=== PATIENT | male | born 1940 | race Caucasian/White ===

== ENCOUNTER 2021-05-05 16:23 | Inpatient (IN) ==
[2021-05-05] MEDS ORDERED: dexAMETHasone**PF** 10 MG/ML VIAL IV ONE (16:59)
[2021-05-05] MEDS ORDERED: ALBUT/IPRATROP 3MG/0.5MG NEB 3 ML VIAL NEB STA (16:59)
[2021-05-05] MEDS ORDERED: ONDANSETRON INJ 2 MG/ML 2 ML VIAL IV STA (16:59)
--- NOTE | 2021-05-05 17:08 | Emergency Department Note ---
Impression & Plan Hypoxia, SOB (shortness of breath), Pneumonia, COVID-19 ED Provider Note NAME: FERNANDO GARRISON AGE: 80 SEX: M : 1940 ARRIVES VIA: Ambulance INFORMANT: [Patient][nursing] ED PROVIDER(S): [Ashish Thakur MD] CHIEF COMPLAINT: Shortness of breath HISTORY OF PRESENT ILLNESS: The patient is an 80-year-old male who presents to the ER with increasing shortness of breath and worsening fatigue. The patient states that he had some abdominal pain several weeks ago that seemed to resolve. About a week ago, he began having cold and flu symptoms. He has had body aches, cough, some stuffy nose, he has lost his taste and smell. He has become short of breath. He has had some sweats and chills. The patient was diagnosed with COVID-19 3 days ago. He is not vaccinated against COVID-19. He is now staying in this area with his daughter. Patient states that today, he seemed worse and they were concerned about his breathing. He was sent for evaluation. As per EMS, the O2 saturation on room air was 88% and the patient did visibly seem short of breath. The patient was diaphoretic. Of note, looking at the patient's medication list, he is on cefdinir and doxyc ycline orally. He states that he was given this for possible pneumonia. REVIEW OF SYSTEMS: See HPI for pertinent positives and negatives. A total of ten systems were re viewed and were otherwise negative. PMHx/PSHx: See Below SOCIAL HISTORY: See Below. PHYSICAL EXAM: GENERAL: Patient is in mild respiratory distress. He seems to have hiccups. HEENT: No acute trauma, normocephalic atraumatic, mucous membranes moist, no nasal congestion, no scleral icterus. NECK: No stridor, no adenopathy, no meningismus, trachea is midline. LUNGS: Crackles bilaterally, there is some mild respiratory distress. Breath sounds are equal. No wheezing. HEART: Without murmurs gallops or rubs, regular rate and rhythm. ABDOMEN: Soft, nontender, bowel sounds positive, no hernias, no peritonitis. EXTREMITIES: No cyanosis or edema, full range of motion of all the joints without pain or difficulty, no signs for acute trauma. NEUROLOGIC: Oriented x 3, no acute motor or sensory deficits, no focal weakness. SKIN: No rash, no jaundice, mild diaphoresis. DIFFERENTIAL DIAGNOSIS: Reactive airway disease, pneumonia, pneumothorax, COVID-19, COPD, CHF, infection, cardiac ischemia, pulmonary embolism, bronchitis, musculoskeletal, gastrointestinal, as well as other pathologies. EMERGENCY DEPARTMENT COURSE/PROCEDURES: ECG: Indication was shortness of breath. The ECG shows what appears to be a sinus rhythm with significant artifact. The rate is 65. There is no ST elevation, no PVCs. The QTc is 426. Continuous Cardiac Monitoring: An order was placed for continuous cardiac monitoring. The monitor shows a rate of 63 with normal sinus rhythm. Critical Care Note: I have personally spent 53 minutes of critical care time in the direct management of this patient. This includes bedside care, interpretation of diagnostic studies, and testing, discussion with consultants, patient, and family members, and other required patient management activities. This 53 minutes is in excess of all separately billable procedures. MEDICAL DECISION MAKING: There is no leukocytosis or worrisome anemia. There is a normal platelet count. Potassium slightly low but not in need of emergent correction. Creatinine mildly elevated at 1.41, this could be consistent with some slight dehydration. Lactic acid level was not elevated making sepsis less likely. No worrisome liver enzyme elevation. BNP was not elevated making fluid overload/CHF unlikely. Covid test run tonight at our hospital is currently pending--his Covid test from the outside facility by report was positive. Chest x-ray does show evidence for bilateral Covid/viral pneumonia. No pneumothorax. Chest CT shows a viral/Covid pneumonia, there was no PE. On exam, the patient appeared short of breath. He had crackles on his lung exam. He was diaphoretic. He was hypoxic without oxygen supplementation. The patient was maintained on O2 via nasal cannula. He received a DuoNeb, IV Decadron, IV Zofran and a small amount of IV saline. The patient does feel improved, he looks much more comfortable. I do think a hospital stay is warranted given his Covid findings and his hypoxia findings. He is not doing well as an outpatient. I spoke with the patient, I spoke with gearcase assembler. The on-call hospitalist was consulted. Past Med/Surg History Medical History Diabetes mellitus Hypertension Social History Smoking Status: Unknown if ever smoked Feels Safe at Home: Yes Allergies Allergies Allergy/AdvReac Type Severity Reaction Status Date / Time No Known Allergies Allergy Verified 05/05/21 17:36 Home Meds Home Medications Medication Instructions Recorded Confirmed Lactobacillus acidoph-L.bulgaricus 1 tab PO DAILY 05/05/21 05/05/21 1 million cell tablet acetaminophen 325 mg tablet 650 mg PO DIRECTED PRN 05/05/21 05/05/21 (Tylenol) amlodipine 2.5 mg tablet 2.5 mg PO DAILY 05/05/21 05/05/21 aspirin 81 mg tablet,delayed 81 mg PO DAILY 05/05/21 05/05/21 release baclofen 5 mg tablet 5 mg PO TID PRN 05/05/21 05/05/21 carvedilol 3.125 mg tablet 3.125 mg PO BID 05/05/21 05/05/21 cefdinir 300 mg capsule 300 mg PO BID 05/05/21 05/05/21 cholecalciferol (vitamin D3) 25 0 mcg PO DAILY 05/05/21 05/05/21 mcg (1,000 unit) capsule (Vitamin D3) citalopram 20 mg tablet (Celexa) 20 mg PO DAILY 05/05/21 05/05/21 cyanocobalamin (vitamin B-12) 0 mcg PO DAILY 05/05/21 05/05/21 1,000 mcg tablet (Vitamin B-12) doxycycline hyclate 100 mg capsule 100 mg PO BID 05/05/21 05/05/21 lisinopril 20 mg tablet 20 mg PO DAILY 05/05/21 05/05/21 omeprazole 20 mg capsule,delayed 20 mg PO DAILY 05/05/21 05/05/21 release potassium chloride 10 mEq 10 meq PO BID 05/05/21 05/05/21 capsule,extended release rosuvastatin 40 mg tablet 20 mg PO DAILY 05/05/21 05/05/21 Results & Data (ED) Vital Signs Vital Signs - 24 hr 05/05/21 16:31 05/05/21 16:32 05/05/21 17:54 Temperature 37.5 C Temperature Source Oral Pulse Rate 63 Pulse Rate [Left Finger] Pulse Rate from SpO2 Sensor Respiratory Rate 16 Respiratory Effort / Characteristics Non-Labored Spontaneous Non-Labored Respiratory Depth Normal Respiratory Pattern Regular Blood Pressure Blood Pressure [Right Arm] 103/74 Blood Pressure Mean Blood Pressure Mean [Right Arm] 83 Blood Pressure Position Semi-fowlers Blood Pressure Position [Right Arm] Sitting Pulse Oximetry 88 L Oxygen Delivery Method Nasal Cannula Room Air Oxygen Flow Rate Sepsis New/Unexplained Change in Mental Status Yes Sepsis Action Taken by Nursing No Action Required 05/05/21 18:17 05/05/21 18:30 05/05/21 19:00 Temperature Temperature Source Pulse Rate Pulse Rate [Left Finger] 54 L Pulse Rate from SpO2 Sensor 53 L 50 L Respiratory Rate 18 Respiratory Effort / Characteristics Non-Labored Spontaneous Respiratory Depth Respiratory Pattern Blood Pressure 101/53 L 117/57 L Blood Pressure [Right Arm] Blood Pressure Mean 69 77 Blood Pressure Mean [Right Arm] Blood Pressure Position Blood Pressure Position [Right Arm] Pulse Oximetry 90 89 L 88 L Oxygen Delivery Method Nasal Cannula Oxygen Flow Rate 2 Sepsis New/Unexplained Change in Mental Status Sepsis Action Taken by Snf Medications Current Medication List: was personally reviewed by me Laboratory Data Attestation: I reviewed the patient's lab results. Result diagrams: 05/05/21 17:20 05/05/21 18:41 Lab Results 05/05/21 05/05/21 05/05/21 Range/Units 17:20 17:20 17:20 WBC 5.29 (4.8-10.8) K/uL RBC 4.41 L (4.7-6.1) M/uL Hgb 13.4 L (14.0-18.0) g/dL Hct 39.9 L (42-52) % MCV 90.5 (80-100) fL MCH 30.4 (25-34) pg MCHC 33.6 (32-36) g/dL RDW Std Deviation 45.5 (36.4-46.3) fL RDW Coeff of Venancio 13.5 (11.5-14.5) % Plt Count 130 (130-400) K/uL MPV 11.7 H (7.4-10.4) fL Immature Gran % (Auto) 0.6 % Neut % (Auto) 82.0 % Lymph % (Auto) 9.1 % Coke % (Auto) 8.3 % Eos % (Auto) 0.0 % Baso % (Auto) 0.0 % Neut # (Auto) 4.34 (1.4-6.5) K/uL Lymph # (Auto) 0.48 L (1.2-3.4) K/uL Coke # (Auto) 0.44 (0.11-0.59) K/uL Eos # (Auto) 0.00 (0-0.5) K/uL Baso # (Auto) 0.00 (0-0.2) K/uL Immature Gran # (Auto) 0.03 H (0.00-0.02) K/uL Sodium 136 (136-145) mmol/L Potassium (3.5-5.1) mmol/L Chloride 106 (98-107) mmol/L Carbon Dioxide 24 (21-32) mmol/L Anion Gap 6.0 (3-11) BUN 21 H (7-18) mg/dl Creatinine 1.41 H (0.6-1.4) mg/dl Est Cr Clr Drug Dosing 48.5 ml/min Est GFR ( Amer) 54.1 ml/min Est GFR (Non-Af Amer) 46.7 ml/min BUN/Creatinine Ratio 15.0 (10-20) Glucose 111 H (70-99) mg/dl Lactate 1.2 (0.4-2.0) mmol/L Calcium 8.8 (8.5-10.1) mg/dl Magnesium (1.8-2.4) mg/dl Total Bilirubin 0.8 (0.2-1) mg/dl AST (15-37) U/L ALT 49 (12-78) U/L Alkaline Phosphatase 63 (45-117) U/L Troponin I 0.018 (0-0.045) ng/ml NT-Pro-B Natriuret Pep 321 (0-1800) pg/ml Total Protein 6.7 (6.4-8.2) gm/dl Albumin 2.7 L (3.4-5.0) gm/dl Globulin 4.0 (2.5-4.0) gm/dl Albumin/Globulin Ratio 0.7 L (0.9-2) COVID-19 Eval Order 05/05/21 05/05/21 Range/Units 18:41 19:32 WBC (4.8-10.8) K/uL RBC (4.7-6.1) M/uL Hgb (14.0-18.0) g/dL Hct (42-52) % MCV (80-100) fL MCH (25-34) pg MCHC (32-36) g/dL RDW Std Deviation (36.4-46.3) fL RDW Coeff of Venancio (11.5-14.5) % Plt Count (130-400) K/uL MPV (7.4-10.4) fL Immature Gran % (Auto) % Neut % (Auto) % Lymph % (Auto) % Coke % (Auto) % Eos % (Auto) % Baso % (Auto) % Neut # (Auto) (1.4-6.5) K/uL Lymph # (Auto) (1.2-3.4) K/uL Coke # (Auto) (0.11-0.59) K/uL Eos # (Auto) (0-0.5) K/uL Baso # (Auto) (0-0.2) K/uL Immature Gran # (Auto) (0.00-0.02) K/uL Sodium (136-145) mmol/L Potassium 3.4 L (3.5-5.1) mmol/L Chloride (98-107) mmol/L Carbon Dioxide (21-32) mmol/L Anion Gap (3-11) BUN (7-18) mg/dl Creatinine (0.6-1.4) mg/dl Est Cr Clr Drug Dosing ml/min Est GFR ( Amer) ml/min Est GFR (Non-Af Amer) ml/min BUN/Creatinine Ratio (10-20) Glucose (70-99) mg/dl Lactate (0.4-2.0) mmol/L Calcium (8.5-10.1) mg/dl Magnesium 1.9 (1.8-2.4) mg/dl Total Bilirubin (0.2-1) mg/dl AST 83 H (15-37) U/L ALT (12-78) U/L Alkaline Phosphatase (45-117) U/L Troponin I (0-0.045) ng/ml NT-Pro-B Natriuret Pep (0-1800) pg/ml Total Protein (6.4-8.2) gm/dl Albumin (3.4-5.0) gm/dl Globulin (2.5-4.0) gm/dl Albumin/Globulin Ratio (0.9-2) COVID-19 Eval Order Covid19 at [facility] Administered Medications Discontinued Medications Albuterol (Albut/Ipratrop 3mg/0.5mg Neb 3 Ml Vial) 3 ml NEB NOW STA Stop: 05/05/21 17:00 Last Admin: 05/05/21 18:16 Dose: 3 ml Documented by: [id number] Dexamethasone Sodium Phosphate (DexamethasonePf 10 Mg/Ml Vial) 6 mg IV NOW ONE Stop: 05/05/21 17:00 Last Admin: 05/05/21 17:32 Dose: 6 mg Documented by: [id number] Sodium Chloride (Nss 1000ml) 500 mls @ 999 mls/hr IV .Q31M ONE Stop: 05/05/21 19:31 Last Admin: 05/05/21 19:28 Dose: 999 mls/hr Documented by: [id number] Ioversol (Optiray 320 125ml) 120 ml IV ONCE ONE Stop: 05/05/21 19:15 Last Admin: 05/05/21 19:15 Dose: 120 ml Documented by: [id number] Ondansetron HCl (Ondansetron Inj 2 Mg/Ml 2 Ml Vial) 4 mg IV NOW STA Stop: 05/05/21 17:00 Last Admin: 05/05/21 17:32 Dose: 4 mg Documented by: [id number] Imaging Data Radiologist's Impression: Chest X-Ray 05/05/21 16:30 XR chest 1V portable CLINICAL HISTORY: sob TECHNIQUE: Single frontal radiograph of the chest was obtained. Comparison: None available at the time of this dictation. FINDINGS: No lines and tubes are seen. The cardiomediastinal silhouette is normal. Multifocal airspace opacities are seen predominantly in the lower lungs. No evidence of pleural effusion or pneumothorax. IMPRESSION: Bilateral airspace opacities may represent atelectasis, pneumonia, and/or aspiration. ACT 112: Negative or not required by law. Electronically signed by: Dino Beckman M.D. 05/05/2021 5:40 PM Chest CTA 05/05/21 18:04 CT angio chest PE protocol CLINICAL HISTORY: PE, covid positive TECHNIQUE: Multidetector row helical CT of the chest was performed. Coronal and sagittal reformations were obtained. Automated dose lowering techniques and/or adjustment according to patient size were utilized for this exam. Comparison: None available at the time of this dictation. FINDINGS: Lungs and pleura: Diffuse bilateral groundglass opacities and interstitial opacities are seen in the dependent portions of the lung. Heart and pericardium: There is cardiomegaly without evidence of pericardial effusion. Vessels: No evidence of pulmonary embolism. Mediastinum and lila: Unremarkable. Chest wall and lower neck: Unremarkable. Abdomen: Unremarkable. Bones: Degenerative changes in the thoracic spine. IMPRESSION: 1. No evidence of pulmonary embolism. 2. Bilateral groundglass and interstitial opacities which may be seen in viral pneumonia. ACT 112: Negative or not required by law. Electronically signed by: Dino Beckman M.D. 05/05/2021 7:30 PM Discharge Plan Visit Data Chief Complaint: Shortness of Breath/Dyspnea Stated Complaint: COVID+ SOB ED Provider: Ashish Thakur Discharge Problem: Hypoxia, SOB (shortness of breath), Pneumonia, COVID-19 Patient Disposition: Admitted As Inpatient Condition: Fair Forms Stand Alone Forms: [facility] Prescriptions Prescriptions: No Action potassium chloride 10 mEq Capsule, Extended Release 10 meq PO BID RF: 0 acetaminophen [Tylenol] 325 mg Tablet 650 mg PO DIRECTED PRN (Reason: FEVER/PAIN) RF: 0 doxycycline hyclate 100 mg capsule 100 mg PO BID RF: 0 lisinopril 20 mg tablet 20 mg PO DAILY RF: 0 cyanocobalamin (vitamin B-12) [Vitamin B-12] 1,000 mcg Tablet 0 mcg PO DAILY RF: 0 amlodipine 2.5 mg Tablet 2.5 mg PO DAILY RF: 0 aspirin 81 mg Tablet,Delayed Release (Dr/Ec) 81 mg PO DAILY RF: 0 carvedilol 3.125 mg Tablet 3.125 mg PO BID RF: 0 citalopram [Celexa] 20 mg Tablet 20 mg PO DAILY RF: 0 omeprazole 20 mg Capsule,Delayed Release(Dr/Ec) 20 mg PO DAILY RF: 0 cefdinir 300 mg capsule 300 mg PO BID RF: 0 cholecalciferol (vitamin D3) [Vitamin D3] 25 mcg (1,000 unit) Capsule 0 mcg PO DAILY RF: 0 rosuvastatin 40 mg Tablet 20 mg PO DAILY RF: 0 Lactobacillus acidoph-L.bulgar 1 million cell tablet 1 tab PO DAILY RF: 0 baclofen 5 mg tablet 5 mg PO TID PRN (Reason: Hiccups) RF: 0 Referrals Referrals: PCP,NO [Primary Care Provider] - Discharge Problem: Pneumonia Qualifiers: Pneumonia type: due to unspecified organism Laterality: bilateral Lung location: unspecified part of lung Qualified Code(s): J18.9 - Pneumonia, unspecified organism
[2021-05-05 17:38] LABS: Hematocrit (blood only) 39.9 % (42-52); Hemoglobin 13.4 g/dL (14.0-18.0); Immature Granulocytes # (auto) 0.03 K/uL (0.00-0.02); Immature Granulocytes % (auto) 0.6 %; Lymphocytes # (auto) 0.48 K/uL (1.2-3.4); Lymphocytes % (auto) 9.1 %; Mean Corpuscular Hemoglobin 30.4 pg (25-34); Mean Corpuscular Hgb Conc 33.6 g/dL (32-36); Mean Corpuscular Volume 90.5 fL (80-100); Mean Platelet Volume 11.7 fL (7.4-10.4); Monocytes # (auto) 0.44 K/uL (0.11-0.59); Monocytes % (auto) 8.3 %; Neutrophils # (auto) 4.34 K/uL (1.4-6.5); Platelet Count 130 K/uL (130-400); RDW Coefficient of Variation 13.5 % (11.5-14.5); RDW Standard Deviation 45.5 fL (36.4-46.3); Red Blood Count 4.41 M/uL (4.7-6.1); White Blood Count 5.29 K/uL (4.8-10.8)
--- NOTE | 2021-05-05 17:41 | XRay Report ---
XR chest 1V portable CLINICAL HISTORY: sob TECHNIQUE: Single frontal radiograph of the chest was obtained. Comparison: None available at the time of this dictation. FINDINGS: No lines and tubes are seen. The cardiomediastinal silhouette is normal. Multifocal airspace opacitie s are seen predominantly in the lower lungs. No evidence of pleural effusion or pneumothorax. IMPRESSION: Bilateral airspace opacities may represent atelectasis, pneumonia, and/or aspiration. ACT 112: Negative or not required by law. Electronically signed by: Dino Beckman M.D. 05/05/2021 5:40 PM
[2021-05-05 18:01] LABS: Albumin Level 2.7 gm/dl (3.4-5.0); Calcium 8.8 mg/dl (8.5-10.1); Creatinine Clr Calc Pharmacy 48.5 ml/min; Est GFR (African American) 54.1 ml/min; Est GFR (Non-African American) 46.7 ml/min
[2021-05-05 18:03] LABS: Albumin Globulin Ratio 0.7 (0.9-2); Bilirubin,Total 0.8 mg/dl (0.2-1); Total Protein 6.7 gm/dl (6.4-8.2); Troponin I 0.018 ng/ml (0-0.045)
[2021-05-05] MEDS ORDERED: SODIUM CHLORIDE 0.9% 1000ML 500 ML IV ONE (19:01)
[2021-05-05 19:05] LABS: Potassium 3.4 mmol/L (3.5-5.1)
[2021-05-05 19:10] LABS: Magnesium 1.9 mg/dl (1.8-2.4)
[2021-05-05] MEDS ORDERED: OPTIRAY 320 125ml IV ONE (19:14)
--- NOTE | 2021-05-05 19:31 | CT Scan Report ---
CT angio chest PE protocol CLINICAL HISTORY: PE, covid positive TECHNIQUE: Multidetector row helical CT of the chest was performed. Coronal and sagittal reformations were obtained. Automated dose lowering techniques and/or adjustment according to patient size were u tilized for this exam. Comparison: None available at the time of this dictation. FINDINGS: Lungs and pleura: Diffuse bilateral groundglass opacities and interstitial opacities are seen in the dependent portions of the lung. Heart and pericardium: There is cardiomegaly without evidence of pericardial effusion. Vessels: No evidence of pulmonary embolism. Mediastinum and lila: Unremarkable. Chest wall and lower neck: Unremarkable. Abdomen: Unremarkable. Bones: Degenerative changes in the thoracic spine. IMPRESSION: 1. No evidence of pulmonary embolism. 2. Bilateral groundglass and interstitial opacities which may be seen in viral pneumonia. ACT 112: Negative or not required by law. Electronically signed by: Dino Beckman M.D. 05/05/2021 7:30 PM
[2021-05-05] MEDS ORDERED: REMDESIVIR 200 MG in SODIUM CHLORIDE 0.9% 210 ML IV STA (20:38)
--- NOTE | 2021-05-05 20:39 | History & Physical Report ---
Date of Service May 05, 2021 Assessment & Plan (1) Pneumonia due to COVID-19 virus: Plan: Pneumonia due to COVID-19 virus with hypoxia- Dexamethasone 6 mg IV every morning Remdesivir IV per protocol Azithromycin 500 mg IV daily Duonebs every 4 hours while awake and every 2 hours when necessary. Guaifenesin extended release 12 mg p.o. twice daily Vitamin D 1000 international units p.o. daily Zinc sulfate 220 mg p.o. daily Nasal cannula oxygen, titrate to keep pulse ox around 94% Stop cefdinir and doxycycline (2) Hypoxia: Plan: See above (3) Hypertension: Plan: Continue amlodipine, aspirin, carvedilol, lisinopril and potassium (4) Depression: Plan: Continue citalopram (5) Vitamin B12 deficiency: Plan: Unknown dosing, will give 1000 mcg p.o. daily (6) Hyperlipidemia: Plan: Continue rosuvastatin (7) Obesity (BMI 30-39.9): Plan: Noted Obesity may be contributing to difficulty with breathing (8) Muscle spasm: Plan: Continue baclofen as needed (9) GERD (gastroesophageal reflux disease): Plan: Continue omeprazole/pantoprazole History of Present Illness Chief Complaint: The patient presents to the emergency department with worsening shortness of breath, cough and generalized fatigue and weakness, that began about 1 week ago with loss of taste and smell, but is worsened over the past few days. Primary Care Provider: NO PCP The patient is an 80-year-old male with a past medical history including hypertension, muscle spasm, depression, danika B12 deficiency, GERD and hyperlipidemia. He presents with symptoms as noted above. He was diagnosed with COVID-19 3 days ago, and is presently living with his daughter locally, who was also diagnosed with COVID-19. Abnormal laboratories: AST 83, albumin 2.7, hemoglobin 13.4, hematocrit 39.9, platelets 130, potassium 3.4, creatinine 1.41. Patient has pulse ox 88% on 2 L nasal cannula Chest x-ray and CT angiography PE protocol both consistent with multifocal pneumonia Patient was given dexamethasone 6 mg IV, DuoNeb treatment, Zofran, NSS 500 mils by the ED We started him on remdesivir IV in the ED Allergies Allergy/AdvReac Type Severity Reaction Status Date / Time No Known Allergies Allergy Verified 05/05/21 17:36 Home Medications Medication Instructions Recorded Confirmed Type Lactobacillus acidoph-L.bulgaricus 1 tab PO DAILY 05/05/21 05/05/21 History 1 million cell tablet acetaminophen 325 mg tablet 650 mg PO DIRECTED PRN 05/05/21 05/05/21 History (Tylenol) amlodipine 2.5 mg tablet 2.5 mg PO DAILY 05/05/21 05/05/21 History aspirin 81 mg tablet,delayed 81 mg PO DAILY 05/05/21 05/05/21 History release baclofen 5 mg tablet 5 mg PO TID PRN 05/05/21 05/05/21 History carvedilol 3.125 mg tablet 3.125 mg PO BID 05/05/21 05/05/21 History cefdinir 300 mg capsule 300 mg PO BID 05/05/21 05/05/21 History cholecalciferol (vitamin D3) 25 0 mcg PO DAILY 05/05/21 05/05/21 History mcg (1,000 unit) capsule (Vitamin D3) citalopram 20 mg tablet (Celexa) 20 mg PO DAILY 05/05/21 05/05/21 History cyanocobalamin (vitamin B-12) 0 mcg PO DAILY 05/05/21 05/05/21 History 1,000 mcg tablet (Vitamin B-12) doxycycline hyclate 100 mg capsule 100 mg PO BID 05/05/21 05/05/21 History lisinopril 20 mg tablet 20 mg PO DAILY 05/05/21 05/05/21 History omeprazole 20 mg capsule,delayed 20 mg PO DAILY 05/05/21 05/05/21 History release potassium chloride 10 mEq 10 meq PO BID 05/05/21 05/05/21 History capsule,extended release rosuvastatin 40 mg tablet 20 mg PO DAILY 05/05/21 05/05/21 History Past Med/Surg History Medical History (Updated 05/05/21 @ 21:06 by Anshul Fung MD) Depression Diabetes mellitus GERD (gastroesophageal reflux disease) Hyperlipidemia Hypertension Muscle spasm Obesity (BMI 30-39.9) Vitamin B12 deficiency Social History Smoking Status: Unknown if ever smoked Feels Safe at Home: Yes Review of Systems Review of Systems: The patient denies chest pain, palpitations, lower extre mity swelling, sore throat, fevers, chills, sweats, nausea, vomiting, diarrhea , constipation, abdominal pain, pelvic pain, blood in urine or stool, dysuria, urinary frequency or urgency, lightheadedness, dizziness, headache, memory loss, loss of consciousness, rash, abnormal bruising or bleeding, imbalance, focal weakness, numbness or tingling in arms or legs, generalized arthralgias or myalgias, back or neck pain, or night sweats. The review of systems is otherwise negative other than for that already noted above, and at least 10 systems have been reviewed. Physical Exam Physical Exam: The patient is awake, alert and oriented 3, well developed and well nourished, normocephalic and atraumatic, lying in bed and in no acute distress. HEENT--PERRL, EOMI, mucous membranes and oropharynx normal. Neck--supple. No JVD. No bruits. Thyroid normal, trachea midline, no adenopathy. Heart--normal S1 and S2. No murmurs, rubs or gallops. Lungs--coarse breath sounds bilaterally. No respiratory distress, no accessory muscle use. Abdomen--normal bowel sounds and soft. Nontender. Nondistended. Obese Extremities--no cyanosis or clubbing. No edema. Dermatologic--normal skin turgor, normal color, no abnormal lymph nodes, no rash. Neurologic--cranial nerves II through XII grossly intact. Rheumatologic--normal range of motion. Psychiatric--normal affect. Results & Data Results & Data ([facility]) Vital Signs (Past 12 Hours) Vital Signs Temp Pulse Pulse Resp BP BP Pulse Ox 05/05/21 19:00 117/57 L 88 L 05/05/21 18:30 101/53 L 89 L 05/05/21 18:17 54 L 18 90 05/05/21 17:54 103/74 05/05/21 16:32 99.5 F 63 16 88 L Laboratory Results Laboratory Results WBC 5.29 K/uL (4.8-10.8) 05/05/21 17:20 RBC 4.41 M/uL (4.7-6.1) L 05/05/21 17:20 Hgb 13.4 g/dL (14.0-18.0) L 05/05/21 17:20 Hct 39.9 % (42-52) L 05/05/21 17:20 MCV 90.5 fL (80-100) 05/05/21 17:20 MCH 30.4 pg (25-34) 05/05/21 17:20 MCHC 33.6 g/dL (32-36) 05/05/21 17:20 RDW Std Deviation 45.5 fL (36.4-46.3) 05/05/21 17:20 RDW Coeff of Venancio 13.5 % (11.5-14.5) 05/05/21 17:20 Plt Count 130 K/uL (130-400) 05/05/21 17:20 MPV 11.7 fL (7.4-10.4) H 05/05/21 17:20 Immature Gran % (Auto) 0.6 % 05/05/21 17:20 Neut % (Auto) 82.0 % 05/05/21 17:20 Lymph % (Auto) 9.1 % 05/05/21 17:20 [place] % (Auto) 8.3 % 05/05/21 17:20 Eos % (Auto) 0.0 % 05/05/21 17:20 Baso % (Auto) 0.0 % 05/05/21 17:20 Neut # (Auto) 4.34 K/uL (1.4-6.5) 05/05/21 17:20 Lymph # (Auto) 0.48 K/uL (1.2-3.4) L 05/05/21 17:20 [place] # (Auto) 0.44 K/uL (0.11-0.59) 05/05/21 17:20 Eos # (Auto) 0.00 K/uL (0-0.5) 05/05/21 17:20 Baso # (Auto) 0.00 K/uL (0-0.2) 05/05/21 17:20 Immature Gran # (Auto) 0.03 K/uL (0.00-0.02) H 05/05/21 17:20 Sodium 136 mmol/L (136-145) 05/05/21 17:20 Potassium 3.4 mmol/L (3.5-5.1) L 05/05/21 18:41 Chloride 106 mmol/L (98-107) 05/05/21 17:20 Carbon Dioxide 24 mmol/L (21-32) 05/05/21 17:20 Anion Gap 6.0 (3-11) 05/05/21 17:20 BUN 21 mg/dl (7-18) H 05/05/21 17:20 Creatinine 1.41 mg/dl (0.6-1.4) H 05/05/21 17:20 Est Cr Clr Drug Dosing 48.5 ml/min 05/05/21 17:20 Est GFR ( Amer) 54.1 ml/min 05/05/21 17:20 Est GFR (Non-Af Amer) 46.7 ml/min 05/05/21 17:20 BUN/Creatinine Ratio 15.0 (10-20) 05/05/21 17:20 Glucose 111 mg/dl (70-99) H 05/05/21 17:20 Lactate 1.2 mmol/L (0.4-2.0) 05/05/21 17:20 Calcium 8.8 mg/dl (8.5-10.1) 05/05/21 17:20 Magnesium 1.9 mg/dl (1.8-2.4) 05/05/21 18:41 Total Bilirubin 0.8 mg/dl (0.2-1) 05/05/21 17:20 AST 83 U/L (15-37) H 05/05/21 18:41 ALT 49 U/L (12-78) 05/05/21 17:20 Alkaline Phosphatase 63 U/L (45-117) 05/05/21 17:20 Troponin I 0.018 ng/ml (0-0.045) 05/05/21 17:20 NT-Pro-B Natriuret Pep 321 pg/ml (0-1800) 05/05/21 17:20 Total Protein 6.7 gm/dl (6.4-8.2) 05/05/21 17:20 Albumin 2.7 gm/dl (3.4-5.0) L 05/05/21 17:20 Globulin 4.0 gm/dl (2.5-4.0) 05/05/21 17:20 Albumin/Globulin Ratio 0.7 (0.9-2) L 05/05/21 17:20 Procalcitonin 0.06 ng/ml (0-0.5) 05/05/21 18:41 COVID-19 Eval Order Covid19 at [facility] 05/05/21 19:32 Impressions Chest X-Ray 05/05/21 16:30 XR chest 1V portable CLINICAL HISTORY: sob TECHNIQUE: Single frontal radiograph of the chest was obtained. Comparison: None available at the time of this dictation. FINDINGS: No lines and tubes are seen. The cardiomediastinal silhouette is normal. Multifocal airspace opacities are seen predominantly in the lower lungs. No evidence of pleural effusion or pneumothorax. IMPRESSION: Bilateral airspace opacities may represent atelectasis, pneumonia, and/or aspiration. ACT 112: Negative or not required by law. Electronically signed by: Dino Beckman M.D. 05/05/2021 5:40 PM Chest CTA 05/05/21 18:04 CT angio chest PE protocol CLINICAL HISTORY: PE, covid positive TECHNIQUE: Multidetector row helical CT of the chest was performed. Coronal and sagittal reformations were obtained. Automated dose lowering techniques and/or adjustment according to patient size were utilized for this exam. Comparison: None available at the time of this dictation. FINDINGS: Lungs and pleura: Diffuse bilateral groundglass opacities and interstitial opacities are seen in the dependent portions of the lung. Heart and pericardium: There is cardiomegaly without evidence of pericardial e ffusion. Vessels: No evidence of pulmonary embolism. Mediastinum and lila: Unremarkable. Chest wall and lower neck: Unremarkable. Abdomen: Unremarkable. Bones: Degenerative changes in the thoracic spine. IMPRESSION: 1. No evidence of pulmonary embolism. 2. Bilateral groundglass and interstitial opacities which may be seen in viral pneumonia. ACT 112: Negative or not required by law. Electronically signed by: Dino Beckman M.D. 05/05/2021 7:30 PM Code Status & VTE Plan Code Status Full code VTE Prophylaxis Plan VTE Prophylaxis will be ordered: Yes PG Care Time/CCT Total # of Minutes Spent Total Time Spent with Patient: Total time spent is greater than 50% in coordination of care (as documented) at patient's floor/unit and/or counseling p atient: Coding Level of Care Code 19748 Initial Inpt Care Lvl 3 Diagnoses Pneumonia due to COVID-19 virus U07.1; J12.82 Hypertension I10 Hypoxia R09.02 Depression F32.A Vitamin B12 deficiency E53.8 Hyperlipidemia E78.5 Obesity (BMI 30-39.9) E66.9 Muscle spasm M62.838 GERD (gastroesophageal reflux disease) K21.9
[2021-05-05] MEDS ORDERED: SODIUM CHLORIDE 0.9% 10ML FLUSH IV SCH (23:45)
[2021-05-05] MEDS ORDERED: ONDANSETRON INJ 2 MG/ML 2 ML VIAL IV PRN (23:47)
[2021-05-05] MEDS ORDERED: BACLOFEN 10 MG TAB PO PRN (23:47)
[2021-05-05] MEDS ORDERED: ACETAMINOPHEN 325 MG TAB PO PRN ×2 (23:47)
[2021-05-06] MEDS: POTASSIUM CHLORIDE CRTAB 20 MEQ TABCR PO SCH ×3 (02:37→20:10)
[2021-05-06] MEDS: TAMSULOSIN HCL 0.4 MG CAP PO SCH ×2 (02:37→20:10)
[2021-05-06] MEDS: guaiFENesin 600 MG TABCR PO SCH ×3 (02:37→20:10)
[2021-05-06] MEDS: carvediloL 3.125 MG TAB PO SCH ×3 (02:38→20:10)
[2021-05-06 04:52] LABS: Hematocrit (blood only) 37.4 % (42-52); Hemoglobin 12.7 g/dL (14.0-18.0); Mean Corpuscular Hemoglobin 30.6 pg (25-34); Mean Corpuscular Volume 90.1 fL (80-100); Mean Platelet Volume 10.9 fL (7.4-10.4); Platelet Count 109 K/uL (130-400); RDW Coefficient of Variation 13.4 % (11.5-14.5); RDW Standard Deviation 45.1 fL (36.4-46.3); Red Blood Count 4.15 M/uL (4.7-6.1); White Blood Count 2.95 K/uL (4.8-10.8)
[2021-05-06 05:29] LABS: Alanine Aminotransferase 42 U/L (12-78); Albumin Globulin Ratio 0.6 (0.9-2); Albumin Level 2.4 gm/dl (3.4-5.0); Alkaline Phosphatase 63 U/L (45-117); Aspartate Aminotransferase 75 U/L (15-37); BUN Creatinine Ratio 18.6 (10-20); Bilirubin,Total 0.6 mg/dl (0.2-1); Blood Urea Nitrogen 22 mg/dl (7-18); Calcium 8.2 mg/dl (8.5-10.1); Carbon Dioxide 26 mmol/L (21-32); Chloride 109 mmol/L (98-107); Est GFR (African American) 68.6 ml/min; Est GFR (Non-African American) 59.1 ml/min; Globulin 3.7 gm/dl (2.5-4.0); Glucose 187 mg/dl (70-99); Sodium 139 mmol/L (136-145); Total Protein 6.1 gm/dl (6.4-8.2); Troponin I < 0.015 ng/ml (0-0.045)
[2021-05-06 06:06] LABS: Immature Granulocytes # (auto) 0.04 K/uL (0.00-0.02); Immature Granulocytes % (auto) 1.4 %; Lymphocytes # (auto) 0.29 K/uL (1.2-3.4); Lymphocytes % (auto) 9.8 %; Monocytes # (auto) 0.21 K/uL (0.11-0.59); Monocytes % (auto) 7.1 %; Neutrophils # (auto) 2.41 K/uL (1.4-6.5); Neutrophils % (auto) 81.7 %
[2021-05-06] MEDS: ALBUT/IPRATROP 3MG/0.5MG NEB 3 ML VIAL NEB SCH ×2 (07:16→11:19)
[2021-05-06] MEDS: dexAMETHasone 6 MG in SYRINGE 0 ML IV SCH (08:23)
[2021-05-06] MEDS: AZITHROMYCIN 500 MG in DEXTROSE 5% 250 ML IV SCH (08:23)
[2021-05-06] MEDS: lisinopril 20 MG TAB PO SCH (08:24)
[2021-05-06] MEDS: PANTOprazole 40 MG TAB PO SCH (08:25)
[2021-05-06] MEDS: ASPIRIN 81 MG ECTAB PO SCH (08:25)
[2021-05-06] MEDS: ADVANCED PROBIOTIC 1250 MG CAPSULE PO SCH (08:25)
[2021-05-06] MEDS: CITALOPRAM 20 MG TAB PO SCH (08:26)
[2021-05-06] MEDS: CHOLECALCIFEROL 1,000 UNITS 25 MCG TAB PO SCH (08:26)
[2021-05-06] MEDS: ZINC SULFATE 220 MG CAPSULE PO SCH (08:26)
[2021-05-06] MEDS: CYANOCOBALAMIN 500 MCG TABLET (VITAMIN B-12) PO SCH (08:26)
[2021-05-06] MEDS: amLODIPine BESYLATE 5 MG TAB PO SCH (08:26)
--- NOTE | 2021-05-06 10:39 | Hospitalist Progress Note ---
Date of Service May 06, 2021 Assessment & Plan (1) Pneumonia due to COVID-19 virus: Plan: Pneumonia due to COVID-19 virus with hypoxia- he is about 12 days into his illness CTA chest: bilateral pneumonia Dexamethasone 6 mg IV every morning x 10 days, day 2 stop Remdesivir as he is too far along in illness no role for baricitinib Azithromycin 500 mg IV daily, day 2 Duonebs PRN Guaifenesin extended release 12 mg p.o. twice daily Vitamin D 1000 international units p.o. daily Zinc sulfate 220 mg p.o. daily stable on 4L, try to wean use CPAP HS due to ALDA (2) Hypoxia: Plan: stable on low flow cannot lay prone wean as tolerated (3) Hypertension: Plan: Continue amlodipine, aspirin, carvedilol, lisinopril and potassium BP stable today (4) Depression: Plan: Continue citalopram (5) Vitamin B12 deficiency: Plan: Unknown dosing, will give 1000 mcg p.o. daily (6) Hyperlipidemia: Plan: Continue rosuvastatin (7) Obesity (BMI 30-39.9): Plan: Noted Obesity may be contributing to difficulty with breathing (8) Muscle spasm: Plan: Continue baclofen as needed (9) GERD (gastroesophageal reflux disease): Plan: Continue omeprazole/pantoprazole Admission and Anticipated Discharge Date Admission Date: May 05, 2021 Subjective history obtained from his daughter Alyssa he has been sick since around 04/24, gradually got worse, was admitted for about 36 hours at [facility] in [place] at the beginning of the week sent home on dexamethasone, he was on room air however he got weaker, not eating/drinking, and his saturations dropped < 88% he says he is feeling better today, he is on 4L NC, no distress he slept with CPAP last night due to ALDA not eating or drinking much today Review of Systems Review of Systems: All systems reviewed & are unremarkable except as noted in Subjective Constitutional: + fatigue and + weakness Respiratory: + dyspnea and + dyspnea on exertion; no cough Cardiovascular: no chest pain Gastrointestinal: no abdominal pain, no nausea, no vomiting, no constipation and no diarrhea/loose stools Physical Exam Physical Exam: General: well developed, well nourished, obese male, ill appearing, no distress Neck: supple, trachea midline, normal thyroid Lungs: clear to auscultation bilaterally, normal respiratory effort, no accessory muscle use, no distress Heart: regular S1 and S2, no murmur, peripheral pulses normal, capillary refill normal, no edema Abdomen: soft, NT, ND, + BS, no hepatomegaly, normal to percussion Extremities: normal in appearance, no cyanosis, no petechiae, strength is slightly diminished Neuro: awake, cooperative, moves all extremities, no focal motor deficits, CN II-XII intact, sensation in extremities intact, normal speech Skin: warm, dry, no rash, normal turgor Psych: Awake, alert oriented x 3, euthymic affect Results & Data Results & Data ([facility]) Vital Signs (Past 12 Hours) Vital Signs Temp Pulse Pulse Resp BP BP Pulse Ox 05/06/21 08:17 36.4 C L 52 L 24 117/63 91 05/06/21 07:19 54 L 53 L 20 92 05/06/21 07:00 52 L 05/06/21 05:37 51 L 21 91 05/06/21 03:03 36.6 C 56 L 17 114/69 92 05/06/21 02:45 56 L 25 H 91 05/06/21 01:00 60 25 H 93 05/05/21 23:57 36.6 C 58 L 18 131/72 90 05/05/21 23:46 62 Laboratory Results Laboratory Results - last 24 hr 05/05/21 05/05/21 05/05/21 17:20 17:20 17:20 WBC 5.29 RBC 4.41 L Hgb 13.4 L Hct 39.9 L MCV 90.5 MCH 30.4 MCHC 33.6 RDW Std Deviation 45.5 RDW Coeff of Venancio 13.5 Plt Count 130 MPV 11.7 H Immature Gran % (Auto) 0.6 Neut % (Auto) 82.0 Lymph % (Auto) 9.1 [place] % (Auto) 8.3 Eos % (Auto) 0.0 Baso % (Auto) 0.0 Neut # (Auto) 4.34 Lymph # (Auto) 0.48 L [place] # (Auto) 0.44 Eos # (Auto) 0.00 Baso # (Auto) 0.00 Immature Gran # (Auto) 0.03 H Sodium 136 Potassium Chloride 106 Carbon Dioxide 24 Anion Gap 6.0 BUN 21 H Creatinine 1.41 H Est Cr Clr Drug Dosing 48.5 Est GFR ( Amer) 54.1 Est GFR (Non-Af Amer) 46.7 BUN/Creatinine Ratio 15.0 Glucose 111 H Lactate 1.2 Calcium 8.8 Magnesium Total Bilirubin 0.8 AST ALT 49 Alkaline Phosphatase 63 Troponin I 0.018 NT-Pro-B Natriuret Pep 321 Total Protein 6.7 Albumin 2.7 L Globulin 4.0 Albumin/Globulin Ratio 0.7 L Procalcitonin COVID-19 Eval Order SARS-CoV-2 (PCR) 05/05/21 05/05/21 05/05/21 18:41 18:41 19:32 WBC RBC Hgb Hct MCV MCH MCHC RDW Std Deviation RDW Coeff of Venancio Plt Count MPV Immature Gran % (Auto) Neut % (Auto) Lymph % (Auto) [place] % (Auto) Eos % (Auto) Baso % (Auto) Neut # (Auto) Lymph # (Auto) [place] # (Auto) Eos # (Auto) Baso # (Auto) Immature Gran # (Auto) Sodium Potassium 3.4 L Chloride Carbon Dioxide Anion Gap BUN Creatinine Est Cr Clr Drug Dosing Est GFR ( Amer) Est GFR (Non-Af Amer) BUN/Creatinine Ratio Glucose Lactate Calcium Magnesium 1.9 Total Bilirubin AST 83 H ALT Alkaline Phosphatase Troponin I NT-Pro-B Natriuret Pep Total Protein Albumin Globulin Albumin/Globulin Ratio Procalcitonin 0.06 COVID-19 Eval Order Covid19 at [facility] SARS-CoV-2 (PCR) 05/05/21 05/06/21 05/06/21 19:32 04:37 04:37 WBC 2.95 L RBC 4.15 L Hgb 12.7 L Hct 37.4 L MCV 90.1 MCH 30.6 MCHC 34.0 RDW Std Deviation 45.1 RDW Coeff of Venancio 13.4 Plt Count 109 L MPV 10.9 H Immature Gran % (Auto) 1.4 Neut % (Auto) 81.7 Lymph % (Auto) 9.8 [place] % (Auto) 7.1 Eos % (Auto) 0.0 Baso % (Auto) 0.0 Neut # (Auto) 2.41 Lymph # (Auto) 0.29 L [place] # (Auto) 0.21 Eos # (Auto) 0.00 Baso # (Auto) 0.00 Immature Gran # (Auto) 0.04 H Sodium 139 Potassium 4.0 D Chloride 109 H Carbon Dioxide 26 Anion Gap 4.0 BUN 22 H Creatinine 1.16 Est Cr Clr Drug Dosing 58.0 Est GFR ( Amer) 68.6 Est GFR (Non-Af Amer) 59.1 BUN/Creatinine Ratio 18.6 Glucose 187 H Lactate Calcium 8.2 L Magnesium 2.0 Total Bilirubin 0.6 AST 75 H ALT 42 Alkaline Phosphatase 63 Troponin I < 0.015 NT-Pro-B Natriuret Pep Total Protein 6.1 L Albumin 2.4 L Globulin 3.7 Albumin/Globulin Ratio 0.6 L Procalcitonin COVID-19 Eval Order SARS-CoV-2 (PCR) POSITIVE A* Medications Administered Current Inpatient Medications Acetaminophen (Acetaminophen 325 Mg Tab) 650 mg PO Q4H PRN PRN Reason: Pain or Fever Stop: 06/04/21 23:46 Albuterol (Albut/Ipratrop 3mg/0.5mg Neb 3 Ml Vial) 3 ml NEB QIDR MARIA LUISA Stop: 06/05/21 06:59 Last Admin: 05/06/21 07:16 Dose: 3 ml Documented by: Amlodipine Besylate (Amlodipine Besylate 5 Mg Tab) 2.5 mg PO DAILY MARIA LUISA Stop: 06/05/21 08:59 Last Admin: 05/06/21 08:26 Dose: 2.5 mg Documented by: Aspirin (Aspirin 81 Mg Ectab) 81 mg PO DAILY MARIA LUISA Stop: 06/05/21 08:59 Last Admin: 05/06/21 08:25 Dose: 81 mg Documented by: Baclofen (Baclofen 10 Mg Tab) 5 mg PO TID PRN PRN Reason: Hiccups Stop: 06/04/21 23:46 Carvedilol (Carvedilol 3.125 Mg Tab) 3.125 mg PO BID MARIA LUISA Stop: 06/04/21 23:46 Last Admin: 05/06/21 08:24 Dose: Not Given Documented by: Citalopram Hydrobromide (Citalopram 20 Mg Tab) 20 mg PO DAILY MARIA LUISA Stop: 06/05/21 08:59 Last Admin: 05/06/21 08:26 Dose: 20 mg Documented by: Cyanocobalamin (Cyanocobalamin 500 Mcg Tablet (Vitamin B-12)) 1,000 mcg PO DAILY MARIA LUISA Stop: 06/05/21 08:59 Last Admin: 05/06/21 08:26 Dose: 1,000 mcg Documented by: Guaifenesin (Guaifenesin 600 Mg Tabcr) 1,200 mg PO Q12 MARIA LUISA Stop: 06/04/21 23:46 Last Admin: 05/06/21 08:25 Dose: 1,200 mg Documented by: Dexamethasone 6 mg/ Syringe 1.5 mls @ 1 mls/min IV DAILY MARIA LUISA Stop: 06/05/21 08:59 Last Admin: 05/06/21 08:23 Dose: 1 mls/min Documented by: Remdesivir 100 mg/ Sodium (Chloride) 250 mls @ 250 mls/hr IV Q24H [facility]; Protocol Stop: 05/09/21 20:59 Azithromycin 500 mg/ Dextrose 255 mls @ 125 mls/hr IV DAILY [facility] Stop: 05/13/21 08:59 Last Admin: 05/06/21 08:23 Dose: 125 mls/hr Documented by: Lactobacillus Acidoph/Casei/Rhamnos (Advanced Probiotic 1250 Mg Capsule) 2 cap PO DAILY MARIA LUISA Stop: 05/14/21 23:59 Last Admin: 05/06/21 08:25 Dose: 2 cap Documented by: Lisinopril (Lisinopril 20 Mg Tab) 20 mg PO DAILY MARIA LUISA Stop: 06/05/21 08:59 Last Admin: 05/06/21 08:24 Dose: 20 mg Documented by: Ondansetron HCl (Ondansetron Inj 2 Mg/Ml 2 Ml Vial) 4 mg IV Q6H PRN PRN Reason: Nausea Stop: 06/04/21 23:46 Pantoprazole Sodium (Pantoprazole 40 Mg Tab) 40 mg PO DAILY [facility] Stop: 06/05/21 08:59 Last Admin: 05/06/21 08:25 Dose: 40 mg Documented by: Potassium Chloride (Potassium Chloride Crtab 20 Meq Tabcr) 20 meq PO BID [facility] Stop: 06/04/21 23:46 Last Admin: 05/06/21 08:24 Dose: 20 meq Documented by: Rosuvastatin Calcium (Rosuvastatin Calcium 20 Mg Tab) 20 mg PO DAILY [facility] Stop: 06/05/21 08:59 Sodium Chloride (Sodium Chloride 0.9% 10ml Flush) 30 ml IV Q24H [facility] Stop: 05/09/21 23:46 Last Admin: 05/05/21 23:45 Dose: 30 ml Documented by: Tamsulosin HCl (Tamsulosin Hcl 0.4 Mg Cap) 0.4 mg PO HS [facility] Stop: 06/04/21 23:46 Last Admin: 05/06/21 02:37 Dose: 0.4 mg Documented by: Vitamin D (Cholecalciferol 1,000 Units 25 Mcg Tab) 1,000 units PO DAILY MARIA LUISA Stop: 06/05/21 08:59 Last Admin: 05/06/21 08:26 Dose: 1,000 units Documented by: Zinc Sulfate (Zinc Sulfate 220 Mg Capsule) 220 mg PO QAM [facility] Stop: 06/05/21 08:59 Last Admin: 05/06/21 08:26 Dose: 220 mg Documented by: PG Care Time/CCT Total # of Minutes Spent Total Time Spent: 33 Total Time Spent with Patient: Total time spent is greater than 50% in coordination of care (as documented) at patient's floor/unit and/or counseling patient: Coding Level of Care Code 05692 Subseq Hosp Care Lvl 3 (25 - SIGNIFICANT, SEPARATELY IDENTIFIABLE ) Diagnoses Pneumonia due to COVID-19 virus U07.1; J12.82 Hypoxia R09.02 Hypertension I10 Depression F32.A Vitamin B12 deficiency E53.8 Hyperlipidemia E78.5 Obesity (BMI 30-39.9) E66.9 Muscle spasm M62.838 GERD (gastroesophageal reflux disease) K21.9
[2021-05-06] MEDS: ROSUVASTATIN CALCIUM 20 MG TAB PO SCH (10:41)
--- NOTE | 2021-05-06 11:07 | Electrocardiogram Report ---
Test Reason : Blood Pressure : / mmHG Vent. Rate : 065 BPM Atrial Rate : 065 BPM P-R Int : 126 ms QRS Dur : 086 ms QT Int : 410 ms P-R-T Axes : 082 -17 019 degrees QTc Int : 426 ms Poor data quality, interpretation may be adversely affected Normal sinus rhythm Nonspecific ST abnormality No previous ECGs available Confirmed by Adiel Coleman ([id number]) on 05/06/2021 11:06:58 AM Referred By: REFERRED SELF Confirmed By:Job Coleman
[2021-05-06] MEDS ORDERED: ALBUT/IPRATROP 3MG/0.5MG NEB 3 ML VIAL NEB PRN (13:03)
[2021-05-06] MEDS ORDERED: REMDESIVIR 100 MG in SODIUM CHLORIDE 0.9% 230 ML IV SCH (20:00)
[2021-05-07 04:14] LABS: Basophils # (auto) 0.01 K/uL (0-0.2); Basophils % (auto) 0.2 %; Hematocrit (blood only) 36.6 % (42-52); Hemoglobin 12.2 g/dL (14.0-18.0); Immature Granulocytes # (auto) 0.05 K/uL (0.00-0.02); Lymphocytes # (auto) 0.39 K/uL (1.2-3.4); Lymphocytes % (auto) 7.6 %; Mean Corpuscular Hemoglobin 30.1 pg (25-34); Mean Corpuscular Hgb Conc 33.3 g/dL (32-36); Mean Corpuscular Volume 90.4 fL (80-100); Mean Platelet Volume 11.8 fL (7.4-10.4); Monocytes # (auto) 0.47 K/uL (0.11-0.59); Monocytes % (auto) 9.1 %; Neutrophils # (auto) 4.22 K/uL (1.4-6.5); Neutrophils % (auto) 82.1 %; Platelet Count 151 K/uL (130-400); RDW Coefficient of Variation 13.3 % (11.5-14.5); RDW Standard Deviation 44.6 fL (36.4-46.3); Red Blood Count 4.05 M/uL (4.7-6.1); White Blood Count 5.14 K/uL (4.8-10.8)
[2021-05-07 04:35] LABS: Alanine Aminotransferase 42 U/L (12-78); Albumin Level 2.3 gm/dl (3.4-5.0); Aspartate Aminotransferase 58 U/L (15-37); BUN Creatinine Ratio 22.6 (10-20); Blood Urea Nitrogen 32 mg/dl (7-18); Calcium 8.6 mg/dl (8.5-10.1); Carbon Dioxide 25 mmol/L (21-32); Chloride 110 mmol/L (98-107); Creatinine Clr Calc Pharmacy 47.4 ml/min; Est GFR (African American) 53.7 ml/min; Est GFR (Non-African American) 46.3 ml/min; Glucose 205 mg/dl (70-99); Magnesium 2.2 mg/dl (1.8-2.4); Potassium 4.2 mmol/L (3.5-5.1); Sodium 139 mmol/L (136-145)
[2021-05-07 04:40] LABS: Albumin Globulin Ratio 0.6 (0.9-2); Alkaline Phosphatase 60 U/L (45-117); Bilirubin,Total 0.6 mg/dl (0.2-1); Globulin 3.7 gm/dl (2.5-4.0); Troponin I < 0.015 ng/ml (0-0.045)
[2021-05-07] MEDS: dexAMETHasone 6 MG in SYRINGE 0 ML IV SCH (08:23)
[2021-05-07] MEDS: AZITHROMYCIN 500 MG in DEXTROSE 5% 250 ML IV SCH (08:24)
[2021-05-07] MEDS: lisinopril 20 MG TAB PO SCH (08:24)
[2021-05-07] MEDS: CHOLECALCIFEROL 1,000 UNITS 25 MCG TAB PO SCH (08:24)
[2021-05-07] MEDS: ROSUVASTATIN CALCIUM 20 MG TAB PO SCH (08:24)
[2021-05-07] MEDS: ZINC SULFATE 220 MG CAPSULE PO SCH (08:25)
[2021-05-07] MEDS: CITALOPRAM 20 MG TAB PO SCH (08:25)
[2021-05-07] MEDS: CYANOCOBALAMIN 500 MCG TABLET (VITAMIN B-12) PO SCH (08:25)
[2021-05-07] MEDS: guaiFENesin 600 MG TABCR PO SCH ×2 (08:25→20:53)
[2021-05-07] MEDS: ADVANCED PROBIOTIC 1250 MG CAPSULE PO SCH (08:25)
[2021-05-07] MEDS: PANTOprazole 40 MG TAB PO SCH (08:25)
[2021-05-07] MEDS: ASPIRIN 81 MG ECTAB PO SCH (08:25)
[2021-05-07] MEDS: amLODIPine BESYLATE 5 MG TAB PO SCH (08:25)
[2021-05-07] MEDS: POTASSIUM CHLORIDE CRTAB 20 MEQ TABCR PO SCH ×2 (08:25→20:53)
[2021-05-07] MEDS: carvediloL 3.125 MG TAB PO SCH ×2 (08:26→20:17)
--- NOTE | 2021-05-07 12:29 | Hospitalist Progress Note ---
Date of Service May 07, 2021 Assessment & Plan (1) Pneumonia due to COVID-19 virus: Plan: Pneumonia due to COVID-19 virus with hypoxia- he is about 12 days into his illness on admission CTA chest: bilateral pneumonia Dexamethasone 6 mg IV every morning x 10 days, day 3 stopped Remdesivir as he is too far along in illness no role for baricitinib Azithromycin 500 mg IV daily, day 3 of 5 Duonebs PRN Guaifenesin extended release 12 mg p.o. twice daily Vitamin D 1000 international units p.o. daily Zinc sulfate 220 mg p.o. daily up a little from 4L to 5L, try to wean use CPAP HS due to ALDA (2) Hypoxia: Plan: stable on low flow at 5L, no distress cannot lay prone wean as tolerated OOB in chair, taking deep breaths (3) Tremor: Plan: more pronounced in right hand, gets worse with picking up items, drinking, eating not really bad at rest would think this is essential tremor, intention tremor he follows with [facility] as outpatient, lives in [place] would not get inpatient neurology consult as this is outpatient, chronic issue consider trying Propranolol but HR is 60 at baseline recommend he gets a referral to see neurology outpatient (4) Hypertension: Plan: Continue amlodipine, aspirin, carvedilol, lisinopril and potassium BP stable today (5) Depression: Plan: Continue citalopram (6) Vitamin B12 deficiency: Plan: Unknown dosing, will give 1000 mcg p.o. daily (7) Hyperlipidemia: Plan: Continue rosuvastatin (8) Obesity (BMI 30-39.9): Plan: Noted Obesity may be contributing to difficulty with breathing (9) GERD (gastroesophageal reflux disease): Plan: Continue omeprazole/pantoprazole Admission and Anticipated Discharge Date Admission Date: May 05, 2021 Subjective patient doing well today, he is stable on 5L, slept with his CPAP last night eating and drinking better, was able to walk to toilet, had a BM, now up in a chair we discussed his tremor, predominantly in right hand, gets worse when he tries to use it for eating/drinking, left hand not nearly as bad has been ongoing for at least a year he said [facility]" but he says that was his PCP, he was not referred to neurologist reviewed labs, Cr is 1.4, troponin negative, K is 4.2, WBC normal Review of Systems Review of Systems: All systems reviewed & are unremarkable except as noted in Subjective Respiratory: + dyspnea and + dyspnea on exertion; no cough Neurologic: + gait abnormality ("don't always go in the direction I want") and + tremor(s) (more in right hand) Physical Exam Physical Exam: General: well developed, well nourished, obese male, ill a ppearing, no distress Neck: supple, trachea midline, normal thyroid Lungs: clear to auscultation bilaterally, normal respiratory effort, no accessory muscle use, no distress Heart: regular S1 and S2, + systolic murmur, peripheral pulses normal, capillary refill normal, no edema Abdomen: soft, NT, ND, + BS, no hepatomegaly, normal to percussion Extremities: normal in appearance, no cyanosis, no petechiae, strength is slightly diminished Neuro: awake, cooperative, moves all extremities, no focal motor deficits, CN II-XII intact, sensation in extremities intact, normal speech Skin: warm, dry, no rash, normal turgor Psych: Awake, alert oriented x 3, euthymic affect Results & Data Results & Data ([facility]) Vital Signs (Past 12 Hours) Vital Signs Temp Pulse Pulse Resp BP Pulse Ox 05/07/21 08:18 36.7 C 54 L 24 126/63 91 05/07/21 07:00 51 L 05/07/21 06:08 92 05/07/21 03:13 37.0 C 53 L 22 117/66 93 Laboratory Results Laboratory Results - last 24 hr 05/06/21 05/06/21 05/07/21 12:28 20:45 04:02 WBC RBC Hgb Hct MCV MCH MCHC RDW Std Deviation RDW Coeff of Venancio Plt Count MPV Immature Gran % (Auto) Neut % (Auto) Lymph % (Auto) Eagle % (Auto) Eos % (Auto) Baso % (Auto) Neut # (Auto) Lymph # (Auto) Eagle # (Auto) Eos # (Auto) Baso # (Auto) Immature Gran # (Auto) Sodium 139 Potassium 4.2 Chloride 110 H Carbon Dioxide 25 Anion Gap 4.0 BUN 32 H Creatinine 1.42 H Est Cr Clr Drug Dosing 47.4 Est GFR ( Amer) 53.7 Est GFR (Non-Af Amer) 46.3 BUN/Creatinine Ratio 22.6 H Glucose 205 H Calcium 8.6 Magnesium 2.2 Total Bilirubin 0.6 AST 58 H ALT 42 Alkaline Phosphatase 60 Troponin I < 0.015 < 0.015 < 0.015 Total Protein 6.0 L Albumin 2.3 L Globulin 3.7 Albumin/Globulin Ratio 0.6 L 05/07/21 04:02 WBC 5.14 RBC 4.05 L Hgb 12.2 L Hct 36.6 L MCV 90.4 MCH 30.1 MCHC 33.3 RDW Std Deviation 44.6 RDW Coeff of Venancio 13.3 Plt Count 151 MPV 11.8 H Immature Gran % (Auto) 1.0 Neut % (Auto) 82.1 Lymph % (Auto) 7.6 Eagle % (Auto) 9.1 Eos % (Auto) 0.0 Baso % (Auto) 0.2 Neut # (Auto) 4.22 Lymph # (Auto) 0.39 L Eagle # (Auto) 0.47 Eos # (Auto) 0.00 Baso # (Auto) 0.01 Immature Gran # (Auto) 0.05 H Sodium Potassium Chloride Carbon Dioxide Anion Gap BUN Creatinine Est Cr Clr Drug Dosing Est GFR ( Amer) Est GFR (Non-Af Amer) BUN/Creatinine Ratio Glucose Calcium Magnesium Total Bilirubin AST ALT Alkaline Phosphatase Troponin I Total Protein Albumin Globulin Albumin/Globulin Ratio Medications Administered Current Inpatient Medications Acetaminophen (Acetaminophen 325 Mg Tab) 650 mg PO Q4H PRN PRN Reason: Pain or Fever Stop: 06/04/21 23:46 Albuterol (Albut/Ipratrop 3mg/0.5mg Neb 3 Ml Vial) 3 ml NEB QIDR PRN PRN Reason: Shortness Of Breath Or Wheezing Stop: 06/05/21 06:59 Amlodipine Besylate (Amlodipine Besylate 5 Mg Tab) 2.5 mg PO DAILY MARIA LUISA Stop: 06/05/21 08:59 Last Admin: 05/07/21 08:25 Dose: 2.5 mg Documented by: Aspirin (Aspirin 81 Mg Ectab) 81 mg PO DAILY MARIA LUISA Stop: 06/05/21 08:59 Last Admin: 05/07/21 08:25 Dose: 81 mg Documented by: Baclofen (Baclofen 10 Mg Tab) 5 mg PO TID PRN PRN Reason: Hiccups Stop: 06/04/21 23:46 Carvedilol (Carvedilol 3.125 Mg Tab) 3.125 mg PO BID MARIA LUISA Stop: 06/04/21 23:46 Last Admin: 05/07/21 08:26 Dose: Not Given Documented by: Citalopram Hydrobromide (Citalopram 20 Mg Tab) 20 mg PO DAILY MARIA LUISA Stop: 06/05/21 08:59 Last Admin: 05/07/21 08:25 Dose: 20 mg Documented by: Cyanocobalamin (Cyanocobalamin 500 Mcg Tablet (Vitamin B-12)) 1,000 mcg PO DAILY MARIA LUISA Stop: 06/05/21 08:59 Last Admin: 05/07/21 08:25 Dose: 1,000 mcg Documented by: Guaifenesin (Guaifenesin 600 Mg Tabcr) 1,200 mg PO Q12 MARIA LUISA Stop: 06/04/21 23:46 Last Admin: 05/07/21 08:25 Dose: 1,200 mg Documented by: Dexamethasone 6 mg/ Syringe 1.5 mls @ 1 mls/min IV DAILY MARIA LUISA Stop: 06/05/21 08:59 Last Admin: 05/07/21 08:23 Dose: 1 mls/min Documented by: Azithromycin 500 mg/ Dextrose 255 mls @ 125 mls/hr IV DAILY MARIA LUISA Stop: 05/13/21 08:59 Last Infusion: 05/07/21 10:46 Dose: Infused Documented by: Lactobacillus Acidoph/Casei/Rhamnos (Advanced Probiotic 1250 Mg Capsule) 2 cap PO DAILY MARIA LUISA Stop: 05/14/21 23:59 Last Admin: 05/07/21 08:25 Dose: 2 cap Documented by: Lisinopril (Lisinopril 20 Mg Tab) 20 mg PO DAILY MARIA LUISA Stop: 06/05/21 08:59 Last Admin: 05/07/21 08:24 Dose: 20 mg Documented by: Ondansetron HCl (Ondansetron Inj 2 Mg/Ml 2 Ml Vial) 4 mg IV Q6H PRN PRN Reason: Nausea Stop: 06/04/21 23:46 Pantoprazole Sodium (Pantoprazole 40 Mg Tab) 40 mg PO DAILY MARIA LUISA Stop: 06/05/21 08:59 Last Admin: 05/07/21 08:25 Dose: 40 mg Documented by: Potassium Chloride (Potassium Chloride Crtab 20 Meq Tabcr) 20 meq PO BID MARIA LUISA Stop: 06/04/21 23:46 Last Admin: 05/07/21 08:25 Dose: 20 meq Documented by: Rosuvastatin Calcium (Rosuvastatin Calcium 20 Mg Tab) 20 mg PO DAILY MARIA LUISA Stop: 06/05/21 08:59 Last Admin: 05/07/21 08:24 Dose: 20 mg Documented by: Tamsulosin HCl (Tamsulosin Hcl 0.4 Mg Cap) 0.4 mg PO HS MARIA LUISA Stop: 06/04/21 23:46 Last Admin: 05/06/21 20:10 Dose: 0.4 mg Documented by: Vitamin D (Cholecalciferol 1,000 Units 25 Mcg Tab) 1,000 units PO DAILY MARIA LUISA Stop: 06/05/21 08:59 Last Admin: 05/07/21 08:24 Dose: 1,000 units Documented by: Zinc Sulfate (Zinc Sulfate 220 Mg Capsule) 220 mg PO QAM MARIA LUISA Stop: 06/05/21 08:59 Last Admin: 05/07/21 08:25 Dose: 220 mg Documented by: PG Care Time/CCT Total # of Minutes Spent Total Time Spent with Patient: Total time spent is greater than 50% in coordination of care (as documented) at patient's floor/unit and/or counseling patient: Coding Level of Care Code 49341 Subseq Hosp Care Lvl 2 Diagnoses Pneumonia due to COVID-19 virus U07.1; J12.82 Hypoxia R09.02 Hypertension I10 Depression F32.A Vitamin B12 deficiency E53.8 Hyperlipidemia E78.5 Obesity (BMI 30-39.9) E66.9 GERD (gastroesophageal reflux disease) K21.9 Tremor R25.1
[2021-05-07] MEDS: TAMSULOSIN HCL 0.4 MG CAP PO SCH (20:53)
[2021-05-08 07:18] LABS: Basophils # (auto) 0.01 K/uL (0-0.2); Basophils % (auto) 0.2 %; Hematocrit (blood only) 37.6 % (42-52); Hemoglobin 12.3 g/dL (14.0-18.0); Immature Granulocytes # (auto) 0.06 K/uL (0.00-0.02); Lymphocytes # (auto) 0.37 K/uL (1.2-3.4); Lymphocytes % (auto) 6.1 %; Mean Corpuscular Hemoglobin 29.8 pg (25-34); Mean Corpuscular Hgb Conc 32.7 g/dL (32-36); Mean Platelet Volume 11.6 fL (7.4-10.4); Monocytes # (auto) 0.75 K/uL (0.11-0.59); Monocytes % (auto) 12.4 %; Neutrophils # (auto) 4.85 K/uL (1.4-6.5); Neutrophils % (auto) 80.3 %; Platelet Count 172 K/uL (130-400); RDW Coefficient of Variation 13.3 % (11.5-14.5); RDW Standard Deviation 44.6 fL (36.4-46.3); Red Blood Count 4.13 M/uL (4.7-6.1); White Blood Count 6.04 K/uL (4.8-10.8)
[2021-05-08 08:05] LABS: Albumin Level 2.4 gm/dl (3.4-5.0); Calcium 8.9 mg/dl (8.5-10.1); Creatinine Clr Calc Pharmacy 54.2 ml/min; Est GFR (African American) 62.6 ml/min; Magnesium 2.3 mg/dl (1.8-2.4); Potassium 4.1 mmol/L (3.5-5.1)
[2021-05-08 08:07] LABS: Albumin Globulin Ratio 0.7 (0.9-2); Bilirubin,Total 0.6 mg/dl (0.2-1); Globulin 3.6 gm/dl (2.5-4.0)
--- NOTE | 2021-05-08 08:45 | Hospitalist Progress Note ---
Date of Service May 08, 2021 Assessment & Plan (1) Pneumonia due to COVID-19 virus: Plan: Acute respiratory failure with hypoxia secondary to pneumonia due to COVID-19 virus -symptoms for about 12 days prior to admission CTA chest: bilateral pneumonia Dexamethasone 6 mg IV stopped Remdesivir not indicated due to disease time course no role for baricitinib Azithromycin 500 mg IV daily complete 5 days of treatment last dose May 10 Duonebs PRN Guaifenesin extended release 12 mg p.o. twice daily Vitamin D 1000 international units p.o. daily Zinc sulfate 220 mg p.o. daily use CPAP HS due to ALDA (2) Hypoxia: Plan: supplemental oxygen by nasal canulaeno distress cannot lay prone wean as tolerated OOB in chair, taking deep breaths (3) Tremor: Plan: more pronounced in right hand, this is intention tremor or essential tremor [facility], lives in [facility] recommend he gets a referral to see neurology outpatient (4) Hypertension: Plan: Continue amlodipine, aspirin, carvedilol, lisinopril and potassium BP stable today (5) Depression: Plan: Continue citalopram (6) Vitamin B12 deficiency: Plan: Unknown dosing, will give 1000 mcg p.o. daily (7) Hyperlipidemia: Plan: Continue rosuvastatin (8) Obesity (BMI 30-39.9): Plan: Noted Obesity may be contributing to difficulty with breathing due to chest wall heaviness (9) GERD (gastroesophageal reflux disease): Plan: Continue omeprazole/pantoprazole Admission and Anticipated Discharge Date Admission Date: May 05, 2021 Subjective Patient feels well his oxygen requirements slightly come down he is able to get across the room to wear the bathroom areas without significant dyspnea but is fairly fatigued while doing it has nonproductive cough Review of Systems Review of Systems: Mild distress and fatigue no headache, no visual changes no speech or swallowing issues returning to taste and smell no chest pain, pressure or palpitations Persistent shortness of breath, nonproductive cough no abdominal pain, nausea or vomiting, diarrhea or constipation no dysuria, hematuria or frequency no focal joint pain or swelling no back pain, CVA tenderness or radicular pain no bruising, bleeding or rashes no focal signs of weakness or numbness or altered sensation no complaints of anxiety or depression.. Physical Exam Physical Exam: The patient appeared well nourished and normally developed. Vital signs as documented. Head exam is normocephalic atraumatic Neck is without JVD, thyromegaly, or carotid bruits. Lungs are basilar rales are heard Cardiac exam, Rhythm is regular.. No murmurs, rubs or gallops. Abdominal exam reveals normal bowel sounds, soft non tender, no masses Extremities are nonedematous and both pedal pulses are present Neurologic exam is alert and oriented, no focal loss of strength or sensation Skin is without bruises or rashes Psychologically is without concerns for anxiety or depression Results & Data Results & Data ([facility]) Vital Signs (Past 12 Hours) Vital Signs Temp Pulse Resp BP BP Pulse Ox 05/08/21 06:41 98.2 F 56 L 17 139/73 94 05/08/21 03:25 98.2 F 56 L 22 128/70 92 05/07/21 22:41 97.5 F L 60 25 H 129/68 90 05/07/21 21:12 91 PG Care Time/CCT Total # of Minutes Spent Total Time Spent with Patient: Total time spent is greater than 50% in coordination of care (as documented) at patient's floor/unit and/or counseling patient: Coding Level of Care Code 84451 Subseq Hosp Care Lvl 2 Diagnoses Pneumonia due to COVID-19 virus U07.1; J12.82 Hypoxia R09.02 Tremor R25.1 Hypertension I10 Depression F32.A Vitamin B12 deficiency E53.8 Hyperlipidemia E78.5 Obesity (BMI 30-39.9) E66.9 GERD (gastroesophageal reflux disease) K21.9
[2021-05-08] MEDS: dexAMETHasone 6 MG in SYRINGE 0 ML IV SCH (09:25)
[2021-05-08] MEDS: POTASSIUM CHLORIDE CRTAB 20 MEQ TABCR PO SCH ×2 (09:27→20:07)
[2021-05-08] MEDS: guaiFENesin 600 MG TABCR PO SCH ×2 (09:27→20:07)
[2021-05-08] MEDS: ZINC SULFATE 220 MG CAPSULE PO SCH (09:28)
[2021-05-08] MEDS: carvediloL 3.125 MG TAB PO SCH ×2 (09:28→19:03)
[2021-05-08] MEDS: lisinopril 20 MG TAB PO SCH (09:28)
[2021-05-08] MEDS: CHOLECALCIFEROL 1,000 UNITS 25 MCG TAB PO SCH (09:29)
[2021-05-08] MEDS: CITALOPRAM 20 MG TAB PO SCH (09:29)
[2021-05-08] MEDS: CYANOCOBALAMIN 500 MCG TABLET (VITAMIN B-12) PO SCH (09:29)
[2021-05-08] MEDS: amLODIPine BESYLATE 5 MG TAB PO SCH (09:30)
[2021-05-08] MEDS: ROSUVASTATIN CALCIUM 20 MG TAB PO SCH (09:30)
[2021-05-08] MEDS: PANTOprazole 40 MG TAB PO SCH (09:31)
[2021-05-08] MEDS: ADVANCED PROBIOTIC 1250 MG CAPSULE PO SCH (09:31)
[2021-05-08] MEDS: ASPIRIN 81 MG ECTAB PO SCH (09:31)
[2021-05-08] MEDS: AZITHROMYCIN 500 MG in DEXTROSE 5% 250 ML IV SCH (10:10)
[2021-05-08] MEDS: TAMSULOSIN HCL 0.4 MG CAP PO SCH (20:07)
[2021-05-09] MEDS: dexAMETHasone 6 MG in SYRINGE 0 ML IV SCH (08:40)
[2021-05-09] MEDS: guaiFENesin 600 MG TABCR PO SCH (08:42)
[2021-05-09] MEDS: ZINC SULFATE 220 MG CAPSULE PO SCH (08:43)
[2021-05-09] MEDS: CITALOPRAM 20 MG TAB PO SCH (08:43)
[2021-05-09] MEDS: POTASSIUM CHLORIDE CRTAB 20 MEQ TABCR PO SCH (08:43)
[2021-05-09] MEDS: PANTOprazole 40 MG TAB PO SCH (08:44)
[2021-05-09] MEDS: ASPIRIN 81 MG ECTAB PO SCH (08:44)
[2021-05-09] MEDS: lisinopril 20 MG TAB PO SCH (08:44)
[2021-05-09] MEDS: CHOLECALCIFEROL 1,000 UNITS 25 MCG TAB PO SCH (08:44)
[2021-05-09] MEDS: ADVANCED PROBIOTIC 1250 MG CAPSULE PO SCH (08:45)
[2021-05-09] MEDS: carvediloL 3.125 MG TAB PO SCH (08:46)
[2021-05-09] MEDS: ROSUVASTATIN CALCIUM 20 MG TAB PO SCH (08:46)
[2021-05-09] MEDS: CYANOCOBALAMIN 500 MCG TABLET (VITAMIN B-12) PO SCH (08:46)
[2021-05-09] MEDS: amLODIPine BESYLATE 5 MG TAB PO SCH (08:47)
[2021-05-09] MEDS: AZITHROMYCIN 500 MG in DEXTROSE 5% 250 ML IV SCH (08:48)
--- NOTE | 2021-05-09 16:54 | Discharge Summary ---
Date of Service May 09, 2021 Admission HPI Per Admitting Provider The patient is an 80-year-old male with a past medical history including hypertension, muscle spasm, depression, danika B12 deficiency, GERD and hyperlipidemia. He presents with symptoms as noted above. He was diagnosed with COVID-19 3 days ago, and is presently living with his daughter locally, who was also diagnosed with COVID-19. Abnormal laboratories: AST 83, albumin 2.7, hemoglobin 13.4, hematocrit 39.9, platelets 130, potassium 3.4, creatinine 1.41. Patient has pulse ox 88% on 2 L nasal cannula Chest x-ray and CT angiography PE protocol both consistent with multifocal pneumonia Patient was given dexamethasone 6 mg IV, DuoNeb treatment, Zofran, NSS 500 mils by the ED We started him on remdesivir IV in the ED Principal Diagnosis Acute respiratory failure with hypoxemia Covid infection with pneumonia Discharge Exam The patient appeared stable for transfer, still with respiratory failure Vital signs as documented. Lungs are with persistent rales Cardiac exam, Rhythm is regular.. No murmurs, rubs or gallops. Abdominal exam reveals normal bowel sounds, soft non tender, no masses Extremities are trace edematous and both pedal pulses are normal. Neurologic exam is alert and oriented, no focal loss of strength or sensation Skin is without bruises or rashes Psychologically is without concerns for anxiety or depression. Discharge Data Allergies Allergy/AdvReac Type Severity Reaction Status Date / Time atorvastatin [From Lipitor] Allergy Unknown Verified 05/06/21 02:44 Consultations 05/05/21 19:34 ED Decision to Admit Stat Ordered Studies 05/05/21 18:04 CT angio chest PE protocol Stat Hospital Course (1) Pneumonia due to COVID-19 virus: Acute respiratory failure with hypoxia secondary to pneumonia due to COVID-19 virus -symptoms for about 12 days prior to admission CTA chest: bilateral pneumonia Dexamethasone 6 mg IV continues at [facility] stopped Remdesivir not indicated due to disease time course no role for baricitinib Azithromycin 500 mg last dose May 10 Duonebs PRN Guaifenesin extended release 12 mg p.o. twice daily Vitamin D 1000 international units p.o. daily Zinc sulfate 220 mg p.o. daily use CPAP HS due to ALDA Did speak with Husam Rosenberg nurse practitioner at the [facility] prior to transfer reviewed the case with her in detail and she is up with the patient in transfer (2) Hypoxia: supplemental oxygen by nasal canulae no distress cannot lay prone wean as tolerated OOB in chair, taking deep breaths (3) Tremor: more pronounced in right hand, this is intention tremor or essential tremor he follows with [facility] as outpatient, lives in [facility] recommend he gets a referral to see neurology outpatient (4) Hypertension: Continue amlodipine, aspirin, carvedilol, lisinopril and potassium BP stable today (5) Depression: Continue citalopram (6) Vitamin B12 deficiency: Unknown dosing, will give 1000 mcg p.o. daily (7) Hyperlipidemia: Continue rosuvastatin (8) Obesity (BMI 30-39.9): Noted Obesity may be contributing to difficulty with breathing due to chest wall heaviness (9) GERD (gastroesophageal reflux disease): Continue omeprazole/pantoprazole Total Time Total Time Spent Total Time Spent (In Minutes): It required greater than 30 minutes to prepare this patient for discharge Discharge Plan Discharge Items Patient Disposition: Transfer [facility] Reason For Visit: COVID - 19 PNEUMONIA WITH HYPOXIA Discharge Diagnosis: hypoxic respiratory failure covid pneumonia Condition on Discharge: Fair Activity: Per Instructions section Non-emergency contact: Primary Care Provider Call non-emergency contact if: your symptoms worsen and you have a fever Follow-up/Referrals: PCP,NO [Primary Care Provider] - Diet: Regular Addtl Attending Provider Instructions: you had been diagnosed with covid pneumonia, and this may take some time to improve, your care and disposition will be continued at the [facility] Pending Studies at Discharge: No Stand-Alone Forms: My [facility] Skilled Items Patient informed of condition?: Yes DNR: Yes Discharge Level of Care: Other Communicable Disease: Yes (covid) Discharge Prognosis: Stable Lines: Peripheral IV Urinary Catheter: Yes Medications and DC Order Prescriptions: New tamsulosin 0.4 mg Capsule 0.4 mg PO HS Qty: 30 RF: 0 zinc sulfate [Orazinc] 50 mg zinc (220 mg) Capsule 220 mg PO QAM Qty: 30 RF: 0 guaifenesin [Mucinex] 600 mg Tablet Extended Release 12hr 1,200 mg PO Q12 Qty: 60 RF: 0 (DME) Oxygen Home Liters Per Minute See Rx Instructions .ROUTE Qty: 1 RF: 0 dexamethasone sodium phos (PF) 10 mg/mL syringe 6 mg IV DAILY Qty: 3 RF: 0 azithromycin 250 mg tablet 250 mg PO DAILY Qty: 1 RF: 0 Continued potassium chloride 10 mEq Capsule, Extended Release 10 meq PO BID RF: 0 acetaminophen [Tylenol] 325 mg Tablet 650 mg PO DIRECTED PRN (Reason: FEVER/PAIN) RF: 0 lisinopril 20 mg tablet 20 mg PO DAILY RF: 0 cyanocobalamin (vitamin B-12) [Vitamin B-12] 1,000 mcg Tablet 0 mcg PO DAILY RF: 0 amlodipine 2.5 mg Tablet 2.5 mg PO DAILY RF: 0 aspirin 81 mg Tablet,Delayed Release (Dr/Ec) 81 mg PO DAILY RF: 0 carvedilol 3.125 mg Tablet 3.125 mg PO BID RF: 0 citalopram [Celexa] 20 mg Tablet 20 mg PO DAILY RF: 0 omeprazole 20 mg Capsule,Delayed Release(Dr/Ec) 20 mg PO DAILY RF: 0 cholecalciferol (vitamin D3) [Vitamin D3] 25 mcg (1,000 unit) Capsule 0 mcg PO DAILY RF: 0 rosuvastatin 40 mg Tablet 20 mg PO DAILY RF: 0 Lactobacillus acidoph-L.bulgar 1 million cell tablet 1 tab PO DAILY RF: 0 baclofen 5 mg tablet 5 mg PO TID PRN (Reason: Hiccups) RF: 0 Discontinued doxycycline hyclate 100 mg capsule 100 mg PO BID RF: 0 cefdinir 300 mg capsule 300 mg PO BID RF: 0 Discharge Orders: Discharge Order (Routine); Ordered 05/09/21 Ordered By: Phill Alejo Admission Data Admit Date/Time: 05/05/21 20:38 Attending Provider: Phill Alejo Admit Provider: Anshul Fung Primary Care Provider: PCP,MICHAEL Other Providers: Anshul Fung ; [facility] Other Interventions: Discharge Summary Assessment (RN) Last Done: 05/09/21 13:06 Coding Level of Care Code D/C DAY MANAGEMENT >30 MINS Diagnoses Pneumonia due to COVID-19 virus U07.1; J12.82 Hypoxia R09.02 Tremor R25.1 Hypertension I10 Depression F32.A Vitamin B12 deficiency E53.8 Hyperlipidemia E78.5 Obesity (BMI 30-39.9) E66.9 GERD (gastroesophageal reflux disease) K21.9
== END 2021-05-09 14:14 | DRG 177 ==
LOC: ED 16:23 → SUATTDRO 20:38 → 2E 20:38

== ENCOUNTER 2022-01-22 16:55 | Inpatient (IN) ==
--- NOTE | 2022-01-22 17:21 | Emergency Department Note ---
History of Present Illness General Chief complaint: Fall Time Seen by Provider: 01/22/22 16:55 History of Present Illness This is an 81-year-old male that presents to the emergency department via ambulance with complaints of "lightheadedness, dizziness, fall". Patient notes earlier today prior to arrival he was tying his shoe and then became dizzy/lightheaded and fell. He states that he was standing and had his foot propped up on a chair to help tie his shoe. It was while he was doing this that he became lightheaded and dizzy. He fell backwards. He struck a glass/broke glass and notes that he sustained a wound to his left mid back region from this. 911 was called and EMS were summoned. Patient notes that he was not dizzy or lightheaded prior to fall but is concerned this may have caused the fall. Although he denies any room spinning sensation he feels that things are moving in his vision. Patient does take baby aspirin daily. No anticoagulants. Patient denies any loss of consciousness neck pain, back pain, chest pain, shortness of breath. No infectious symptoms. No fevers or chills. Patient notes he is concerned about the possibility of stroke noting his symptoms but denies any history of CVA. Patient does state that he has a known fistula/gallbladder abnormality of which he is scheduled for a colonoscopy on . 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 Patient denies any speech trouble or weakness acutely. Home Medications Medication Instructions Recorded Confirmed Type Lactobacillus acidoph-L.bulgaricus 1 tab PO DAILY 05/05/21 05/05/21 History 1 million cell tablet acetaminophen 325 mg tablet 650 mg PO DIRECTED PRN 05/05/21 05/05/21 History (Tylenol) FEVER/PAIN amlodipine 2.5 mg tablet 2.5 mg PO DAILY 05/05/21 05/05/21 History aspirin 81 mg tablet,delayed 81 mg PO DAILY 05/05/21 05/05/21 History release baclofen 5 mg tablet 5 mg PO TID PRN Hiccups 05/05/21 05/05/21 History carvedilol 3.125 mg tablet 3.125 mg PO BID 05/05/21 05/05/21 History cholecalciferol (vitamin D3) 25 0 mcg PO DAILY 05/05/21 05/05/21 History mcg (1,000 unit) capsule (Vitamin D3) citalopram 20 mg tablet (Celexa) 20 mg PO DAILY 05/05/21 05/05/21 History cyanocobalamin (vitamin B-12) 0 mcg PO DAILY 05/05/21 05/05/21 History 1,000 mcg tablet (Vitamin B-12) lisinopril 20 mg tablet 20 mg PO DAILY 05/05/21 05/05/21 History omeprazole 20 mg capsule,delayed 20 mg PO DAILY 05/05/21 05/05/21 History release potassium chloride 10 mEq 10 meq PO BID 05/05/21 05/05/21 History capsule,extended release rosuvastatin 40 mg tablet 20 mg PO DAILY 05/05/21 05/05/21 History Oxygen Home #1 ea 05/09/21 Rx azithromycin 250 mg tablet 250 mg PO DAILY #1 tab 05/09/21 Rx dexamethasone sodium phos (PF) 10 6 mg (0.6 mL) IV DAILY #3 mL 05/09/21 Rx mg/mL injection syringe guaifenesin 600 mg tablet, 1,200 mg PO Q12 #60 tabs 05/09/21 Rx extended release 12 hr (Mucinex) tamsulosin 0.4 mg capsule 0.4 mg PO HS #30 caps 05/09/21 Rx zinc sulfate 50 mg zinc (220 mg) 220 mg PO QAM #30 caps 05/09/21 Rx capsule (Orazinc) Allergies Allergy/AdvReac Type Severity Reaction Status Date / Time atorvastatin [From Lipitor] Allergy Unknown Verified 05/06/21 02:44 Past Med/Surg History Medical History Depression Diabetes mellitus GERD (gastroesophageal reflux disease) Hyperlipidemia Hypertension Muscle spasm Obesity (BMI 30-39.9) Vitamin B12 deficiency Social History Smoking Status: Former smoker Second Hand Exposure: No; Hx Alcohol Use: No Hx Substance Use: No Preferred Language: Romanian Communication Ability: Effective 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 Beliefs That Will Affect Care: None Current Living Situation: Alone and Family Current Living Situation Comment: Daughter Feels Safe at Home: Yes Safety Concerns: Feels Safe At This Time Assistive Devices: Cane, CPAP, Glasses and Hearing Aid - Bilateral Review of Systems A total of 10 systems reviewed and were otherwise negative Physical Exam Vital Signs Vital Signs - 24 hr 01/22/22 17:02 01/22/22 18:16 01/22/22 18:12 Temperature 36.7 C Temperature Source Oral Pulse Rate 70 54 L Pulse Rate [Right Finger] Pulse Rate from SpO2 Sensor Pulse Rhythm Regular Regular Pulse Strength Normal Respiratory Rate 20 20 Respiratory Effort / Characteristics Non-Labored Spontaneous Respiratory Depth Normal Respiratory Pattern Regular Blood Pressure 189/101 H 149/88 H Blood Pressure [Right Arm] Blood Pressure Mean 130 108 Blood Pressure Mean [Right Arm] Blood Pressure Position Sitting Pulse Oximetry 94 96 Oxygen Delivery Method Room Air Nasal Cannula Sepsis Recent Fever Within 48 Hours No Sepsis New/Unexplained Change in Mental Status No Sepsis Action Taken by Nursing No Action Required 01/22/22 18:13 01/22/22 18:58 01/22/22 20:05 Temperature Temperature Source Pulse Rate 67 Pulse Rate [Right Finger] 62 Pulse Rate from SpO2 Sensor 60 Pulse Rhythm Pulse Strength Respiratory Rate 27 H 18 Respiratory Effort / Characteristics Non-Labored Respiratory Depth Normal Respiratory Pattern Blood Pressure Blood Pressure [Right Arm] 160/68 H Blood Pressure Mean Blood Pressure Mean [Right Arm] 98 Blood Pressure Position Pulse Oximetry 95 98 Oxygen Delivery Method Room Air Sepsis Recent Fever Within 48 Hours Sepsis New/Unexplained Change in Mental Status Sepsis Action Taken by Nursing VITAL SIGNS - Vital signs and nursing notes were reviewed. Stable and afebrile. GENERAL -81-year-old male appearing his stated age who is in no acute distress. Communicates well with provider and answers questions appropriately. SKIN -there is evidence for 3 superficial lacerations to the left mid back region in the soft tissues. These are overall superficial. No evidence of retained foreign body. HEAD - NC/AT. No pederson signs or raccoon's eyes. EYES - PERRL with EOMI bilaterally. Sclera anicteric. Palpebral conjunctiva pink and moist with no injection noted. EARS - No deformities of external structures noted on gross examination bilaterally. No pain elicited with palpation of the tragus bilaterally. External auditory canals without discharge or otorrhea. No hemotympanum. Tympanic membranes pearly cagle without retraction or bulging. No fluid or purulent material visualized behind the TM. Handle of malleus, umbo, cone of light, pars tensa/flaccid all easily visualized. NOSE - Midline and without cyanosis. No epistaxis or purulent drainage noted. Septum midline without deviation or septal hematoma noted. MOUTH/OROPHARYNX - Without perioral cyanosis. Buccal mucosa pink and moist and without leukoplakia. Tongue midline with equal elevation of palate bilaterally. No tonsillar hypertrophy, erythema, or exudates noted. Fair dentition noted. NECK - Neck with FROM. No nuchal rigidity. LUNGS - Chest wall symmetric without accessory muscle use, intercostals retractions, or central cyanosis. Normal vesicular breath sounds CTA B/L. No wheezes, rales, or rhonchi appreciated. CARDIAC - RRR with S1/S2. No murmur, rubs, or gallops appreciated. ABDOMEN - Abdominal contour normal without pulsations or visible masses. BS normoactive all four quadrants. No tenderness, palpable masses, hepatosplenomegaly, or ascites noted. MUSCULOSKELETALthere is skin and soft tissue defects as noted above/superficial lacerations. No tenderness to this area. No step-off. No deformity. No crepitus. EXTREMITIES - No clubbing or peripheral cyanosis. +5/5 strength noted in UE/LE bilaterally. NEUROLOGIC - Cranial nerves II through XII grossly intact. PSYCH - A&O, and cooperates fully with examiner. Pt is very pleasant and interacts well with examiner. Course Administered Medications Carvedilol (Carvedilol 3.125 Mg Tab) 3.125 mg PO BID MARIA LUISA Stop: 02/21/22 22:38 Last Admin: 01/22/22 23:48 Dose: 3.125 mg Documented By: Discontinued Medications Sodium Chloride (Nss) 500 mls @ 500 mls/hr IV .Q1H ONE Stop: 01/22/22 19:29 Last Infusion: 01/22/22 19:56 Dose: 0 mls/hr Documented By: Admin: 01/22/22 18:54 Dose: 500 mls/hr Documented By: SIDNEY Ioversol (Optiray 320 125ml) 119 ml IV ONCE ONE Stop: 01/22/22 18:33 Last Admin: 01/22/22 18:39 Dose: 119 ml Documented By: KARLI Medical Decision Making Laboratory Data Result diagrams: 01/22/22 17:37 01/22/22 17:37 Lab Results 01/22/22 01/22/22 01/22/22 Range/Units 17:37 17:37 17:37 WBC 5.09 (4.8-10.8) K/ul RBC 4.32 L (4.63-6.08) M/uL Hgb 13.2 L (14.0-18.0) g/dl Hct 39.0 L (40.1-51.0) % MCV 90.3 (80.0-100.0) fL MCH 30.6 (25.0-34.0) pg MCHC 33.8 (32.0-36.0) g/dL RDW Std Deviation 44.2 (36.4-46.3) fL RDW Coeff of Venancio 13.3 (11.5-14.5) % Plt Count 149 (130-400) K/uL MPV 11.3 (9.4-12.4) fL Immature Gran % (Auto) 0.6 % Neut % (Auto) 71.0 % Lymph % (Auto) 14.1 % Sutter % (Auto) 11.2 % Eos % (Auto) 3.1 % Baso % (Auto) 0.0 % Neut # (Auto) 3.61 (1.4-6.5) K/uL Lymph # (Auto) 0.72 L (1.2-3.4) K/uL Sutter # (Auto) 0.57 (0.24-0.82) K/uL Eos # (Auto) 0.16 (0-0.50) K/uL Baso # (Auto) 0.00 (0-0.2) K/uL Immature Gran # (Auto) 0.03 H (0.00-0.02) K/uL PT 10.8 (9.0-12.0) Seconds INR 1.0 (0.9-1.1) APTT 25.6 (21.0-31.0) Seconds PTT Ratio 0.9 Sodium 139 (136-145) mmol/L Potassium 3.8 (3.5-5.1) mmol/L Chloride 104 (98-107) mmol/L Carbon Dioxide 28 (21-32) mmol/L Anion Gap 7 (3-11) BUN 24 H (6-23) mg/dl Creatinine 1.18 (0.6-1.4) mg/dl Est Cr Clr Drug Dosing 56.6 ml/min Est GFR ( Amer) 66.7 ml/min Est GFR (Non-Af Amer) 57.5 ml/min BUN/Creatinine Ratio 20.3 H (10-20) Glucose 105 H (70-99(Fasting)) mg/dl Calcium 9.2 (8.5-10.1) mg/dl Total Bilirubin 0.8 (0.2-1.0) mg/dl AST 22 (13-39) U/L ALT 16 (7-52) U/L Alkaline Phosphatase 85 (34-104) U/L Total Protein 7.0 (6.0-8.3) gm/dl Albumin 4.1 (3.4-5.0) gm/dl Globulin 2.9 (2.5-4.0) gm/dl Albumin/Globulin Ratio 1.4 (0.9-2) SARS-CoV-2, RNA, NAAT (NEGATIVE) 01/22/22 Range/Units 20:00 WBC (4.8-10.8) K/ul RBC (4.63-6.08) M/uL Hgb (14.0-18.0) g/dl Hct (40.1-51.0) % MCV (80.0-100.0) fL MCH (25.0-34.0) pg MCHC (32.0-36.0) g/dL RDW Std Deviation (36.4-46.3) fL RDW Coeff of Venancio (11.5-14.5) % Plt Count (130-400) K/uL MPV (9.4-12.4) fL Immature Gran % (Auto) % Neut % (Auto) % Lymph % (Auto) % Sutter % (Auto) % Eos % (Auto) % Baso % (Auto) % Neut # (Auto) (1.4-6.5) K/uL Lymph # (Auto) (1.2-3.4) K/uL Sutter # (Auto) (0.24-0.82) K/uL Eos # (Auto) (0-0.50) K/uL Baso # (Auto) (0-0.2) K/uL Immature Gran # (Auto) (0.00-0.02) K/uL PT (9.0-12.0) Seconds INR (0.9-1.1) APTT (21.0-31.0) Seconds PTT Ratio Sodium (136-145) mmol/L Potassium (3.5-5.1) mmol/L Chloride (98-107) mmol/L Carbon Dioxide (21-32) mmol/L Anion Gap (3-11) BUN (6-23) mg/dl Creatinine (0.6-1.4) mg/dl Est Cr Clr Drug Dosing ml/min Est GFR ( Amer) ml/min Est GFR (Non-Af Amer) ml/min BUN/Creatinine Ratio (10-20) Glucose (70-99(Fasting)) mg/dl Calcium (8.5-10.1) mg/dl Total Bilirubin (0.2-1.0) mg/dl AST (13-39) U/L ALT (7-52) U/L Alkaline Phosphatase (34-104) U/L Total Protein (6.0-8.3) gm/dl Albumin (3.4-5.0) gm/dl Globulin (2.5-4.0) gm/dl Albumin/Globulin Ratio (0.9-2) SARS-CoV-2, RNA, NAAT NEGATIVE (NEGATIVE) Imaging Data Radiologist's Impression: Abdomen/Pelvis CT 01/22/22 17:13 CT SCAN OF THE CHEST, ABDOMEN, AND PELVIS WITH IV CONTRAST CLINICAL HISTORY: Syncope. Dizziness. Back pain. COMPARISON STUDY: Chest CT dated 05/05/2021. TECHNIQUE: Following the IV administration of 190 of Optiray 320, CT scan of the chest, abdomen, and pelvis was performed from the thoracic inlet to the proximal femora. Images are reviewed in the axial, sagittal, and coronal planes. IV contrast was administered without complication. A dose lowering technique was utilized adhering to the principles of ALARA. The examination is degraded by streak artifact from the arms which could not be related above the chest or abdomen. FINDINGS: CHEST: Thyroid: Imaged portions of the thyroid gland are normal in size and attenuation. Thoracic aorta: There is atherosclerotic calcification of the thoracic aorta, which is normal in caliber and demonstrates standard 3-vessel arch anatomy. No dissection is seen. Pulmonary vasculature: The pulmonary trunk is normal in caliber. There are no filling defects identified in the central pulmonary vessels to indicate pulmonary embolus. Note that this examination was not protocoled for evaluation of the pulmonary arteries. Heart: The heart is mildly enlarged and without pericardial effusion. The coronary arteries and aortic valve leaflets are densely calcified. Lungs and pleural spaces: Subpleural parenchymal scarring is seen throughout both lungs, greatest at the lung bases. There is no airspace consolidation typical for pneumonia or pleural effusion. The trachea and central airways are clear. No pneumothorax is identified. There are punctate calcified granulomas. Mediastinum: There is no mediastinal hematoma or lymphadenopathy. Radha: Clear. Axillae: There is no axillary lymphadenopathy. Bony thorax: The skeletal structures are osteopenic. The bony thorax appears intact. No lytic or blastic lesions are identified. Soft tissues: Mild soft tissue contusion is suggested in the right mid back on image #217. ABDOMEN AND PELVIS: Liver: The contrast-enhanced liver is normal in size, contour, and attenuation. There is no intrahepatic biliary ductal dilatation. Pneumobilia is noted in the left lobe. The hepatic veins and portal veins are patent. Gallbladder: There is a large calcified gallstone. There is evidence of a fistula between the gallbladder and the hepatic flexure, best seen on axial branodn ge #97. There is mild associated pericholecystic infiltration. Spleen: Normal in size and attenuation. Pancreas: Atrophic and grossly unremarkable. Adrenal glands: Unremarkable. Kidneys: The contrast enhanced kidneys demonstrate mild cortical atrophy and are without hydronephrosis. The kidneys enhance symmetrically. There are least 2 nonobstructing left renal calculi measuring up to 3 mm. Small bilateral renal cysts measure up to 2.1 cm. Additional subcentimeter cortical hypodensities also likely represent cysts but are too small for definitive characterization. Abdominal vasculature: The abdominal aorta is normal in course and caliber noting advanced atherosclerotic calcification. Stomach and bowel: There is a tiny hiatal hernia. There is moderate to advanced colonic diverticulosis without CT evidence of acute diverticulitis. No bowel obstruction is seen. Duodenal diverticula are noted. The appendix is well- visualized and normal. Peritoneum: There is no intraperitoneal free air or abdominal ascites. Lymphadenopathy: None. Pelvic viscera: The prostate gland is mildly enlarged and heterogeneous. The bladder wall appears thickened and trabeculated indicating chronic outlet obstruction. There are small bilateral fat-containing inguinal hernias. Skeletal structures: The skeletal structures are osteopenic. The lumbosacral spine, bony pelvis, and proximal femora appear intact. There is mild lumbosacral spondylosis. No lytic or blastic lesions are seen. Soft tissues: Mild contusion is suggested in the lower back on image #2011. IMPRESSION: 1. Parenchymal scarring is seen throughout both lungs with no airspace consolidation, pleural effusion, or pneumothorax. 2. Mild soft tissue contusions are suggested in the soft tissues of the mid to lower back as above. Clinical correlation will be required. 3. There is no evidence of solid organ injury in the abdomen or pelvis. 4. There is cholelithiasis with evidence of a fistula between the gallbladder and the right colon. Pneumobilia in the left lobe of the liver may be related, and there is mild pericholecystic infiltration. Surgical follow-up is advised. 5. Mild cardiomegaly. 6. No fracture is seen. 7. Advanced colonic diverticulosis without CT evidence of acute diverticulitis. 8. Left-sided nephrolithiasis. 9. Additional findings as above. ACT 112: Negative or not required by law. Electronically signed by: Ashish Espinosa M.D. 01/22/2022 7:[address] 01/22/22 17:13 CT SCAN OF THE CHEST, ABDOMEN, AND PELVIS WITH IV CONTRAST CLINICAL HISTORY: Syncope. Dizziness. Back pain. COMPARISON STUDY: Chest CT dated 05/05/2021. TECHNIQUE: Following the IV administration of 190 of Optiray 320, CT scan of the chest, abdomen, and pelvis was performed from the thoracic inlet to the proximal femora. Images are reviewed in the axial, sagittal, and coronal planes. IV contrast was administered without complication. A dose lowering technique was utilized adhering to the principles of ALARA. The examination is degraded by streak artifact from the arms which could not be related above the chest or abdomen. FINDINGS: CHEST: Thyroid: Imaged portions of the thyroid gland are normal in size and attenuation. Thoracic aorta: There is atherosclerotic calcification of the thoracic aorta, which is normal in caliber and demonstrates standard 3-vessel arch anatomy. No dissection is seen. Pulmonary vasculature: The pulmonary trunk is normal in caliber. There are no filling defects identified in the central pulmonary vessels to indicate pulmonary embolus. Note that this examination was not protocoled for evaluation of the pulmonary arteries. Heart: The heart is mildly enlarged and without pericardial effusion. The coronary arteries and aortic valve leaflets are densely calcified. Lungs and pleural spaces: Subpleural parenchymal scarring is seen throughout both lungs, greatest at the lung bases. There is no airspace consolidation t ypical for pneumonia or pleural effusion. The trachea and central airways are clear. No pneumothorax is identified. There are punctate calcified granulomas. Mediastinum: There is no mediastinal hematoma or lymphadenopathy. Radha: Clear. Axillae: There is no axillary lymphadenopathy. Bony thorax: The skeletal structures are osteopenic. The bony thorax appears intact. No lytic or blastic lesions are identified. Soft tissues: Mild soft tissue contusion is suggested in the right mid back on image #217. ABDOMEN AND PELVIS: Liver: The contrast-enhanced liver is normal in size, contour, and attenuation. There is no intrahepatic biliary ductal dilatation. Pneumobilia is noted in the left lobe. The hepatic veins and portal veins are patent. Gallbladder: There is a large calcified gallstone. 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 There is mild associated pericholecystic infiltration. Spleen: Normal in size and attenuation. Pancreas: Atrophic and grossly unremarkable. Adrenal glands: Unremarkable. Kidneys: The contrast enhanced kidneys demonstrate mild cortical atrophy and are without hydronephrosis. The kidneys enhance symmetrically. There are least 2 nonobstructing left renal calculi measuring up to 3 mm. Small bilateral renal cysts measure up to 2.1 cm. Additional subcentimeter cortical hypodensities also likely represent cysts but are too small for definitive characterization. Abdominal vasculature: The abdominal aorta is normal in course and caliber noting advanced atherosclerotic calcification. Stomach and bowel: There is a tiny hiatal hernia. There is moderate to advanced colonic diverticulosis without CT evidence of acute diverticulitis. No bowel obstruction is seen. Duodenal diverticula are noted. The appendix is well-visua lized and normal. Peritoneum: There is no intraperitoneal free air or abdominal ascites. Lymphadenopathy: None. Pelvic viscera: The prostate gland is mildly enlarged and heterogeneous. The bladder wall appears thickened and trabeculated indicating chronic outlet obstruction. There are small bilateral fat-containing inguinal hernias. Skeletal structures: The skeletal structures are osteopenic. The lumbosacral spine, bony pelvis, and proximal femora appear intact. There is mild lumbosacral spondylosis. No lytic or blastic lesions are seen. Soft tissues: Mild contusion is suggested in the lower back on image #2011. IMPRESSION: 1. Parenchymal scarring is seen throughout both lungs with no airspace c onsolidation, pleural effusion, or pneumothorax. 2. Mild soft tissue contusions are suggested in the soft tissues of the mid to lower back as above. Clinical correlation will be required. 3. There is no evidence of solid organ injury in the abdomen or pelvis. 4. There is cholelithiasis with evidence of a fistula between the gallbladder and the right colon. Pneumobilia in the left lobe of the liver may be related, and there is mild pericholecystic infiltration. Surgical follow-up is advised. 5. Mild cardiomegaly. 6. No fracture is seen. 7. Advanced colonic diverticulosis without CT evidence of acute diverticulitis. 8. Left-sided nephrolithiasis. 9. Additional findings as above. ACT 112: Negative or not required by law. Electronically signed by: Ashish Espinosa M.D. 01/22/2022 7:24 PM Head CTA 01/22/22 17:13 CT ANGIOGRAM OF THE BRAIN COMBO; CT ANGIOGRAM OF THE NECK CLINICAL HISTORY: Syncope. Dizziness. Fall. COMPARISON STUDY: No priors. TECHNIQUE: Unenhanced axial CT scan of the brain is performed. Subsequently, following the IV administration of 119 of Optiray 320, CT angiogram of the head and neck was performed from the aortic arch to the vertex. Images are reviewed in the axial, sagittal, and coronal planes. 3-D MIPS images are created and assessed. IV contrast was administered without complication. All measurements were calculated based on NASCET criteria. A dose lowering technique was utilized adhering to the principles of ALARA. CT DOSE: 3342.33 mGy.cm FINDINGS: Brain parenchyma: There is age-related involutional change noting mild s ubcortical and periventricular microangiopathic disease. There is no hemorrhage, mass effect, or evidence of acute territorial ischemia by CT criteria. There is no evidence of enhancing mass lesion on the angiogram phase images. The ventricles, sulci, and cisterns are prominent secondary to involutional change. 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 Cagle- white matter differentiation is preserved. No extra-axial fluid collection is seen. Thoracic aorta: There is atherosclerotic calcification of the thoracic aorta. Visualized portions of the thoracic aorta are normal in caliber. The aortic arch demonstrates standard 3-vessel anatomy. Right carotid arterial system: The right common carotid artery is widely patent, as are the right internal and external carotid arteries. Calcified plaque is noted in the carotid bulb. Left carotid arterial system: The left common carotid artery is widely patent, as are the left internal and external carotid arteries. Calcified plaque is noted in the carotid bulb. Vertebral arteries: There is mild stenosis at the origin of the right vertebral artery. The vertebral arteries are otherwise widely patent bilaterally and co dominant. Subclavian arteries: Widely patent bilaterally. Intracranial vasculature: There is atherosclerotic calcification of the cavernous carotid and vertebral arteries The internal carotid arteries are patent at the skull base, as are the anterior and middle cerebral arteries bilaterally. The vertebrobasilar system and posterior cerebral arteries are widely patent. The vertebral arteries are codominant. There is no aneurysm, high-grade stenosis, or focal vessel cut off seen throughout the intracranial circulation. Jugular veins: Patent bilaterally. Dural sinuses: Patent. Lung apices: Partially visualized upper lobe lung parenchyma appears clear. Soft tissues: The visualized pharyngeal soft tissues are normal in appearance noting angiographic phase technique. The oropharyngeal airway appears widely patent. The salivary and thyroid glands are normal in appearance. No cervical lymphadenopathy is seen. Skeletal structures: The skeletal structures are osteopenic. The calvarium appears intact. The cervical spine is maintained noting multilevel spondylosis. No lytic or blastic lesion is seen. Orbits: The bony orbits are intact. Orbital contents are normal as visualized noting bilateral ocular lens implants. Sinuses and mastoids: The paranasal sinuses are clear. There are right larger than left mastoid effusions. IMPRESSION: 1. There is no hemorrhage, mass effect, or evidence of acute territorial ischemia by CT criteria. 2. Unremarkable CT angiogram of the brain. 3. There is mild stenosis at the origin of the right vertebral artery. 4. Otherwise unremarkable CT angiogram of the neck. ACT 112: Negative or not required by law. Electronically signed by: Ashish Espinosa M.D. 01/22/2022 6:57 PM Neck CTA 01/22/22 17:13 CT ANGIOGRAM OF THE BRAIN COMBO; CT ANGIOGRAM OF THE NECK CLINICAL HISTORY: Syncope. Dizziness. Fall. COMPARISON STUDY: No priors. TECHNIQUE: Unenhanced axial CT scan of the brain is performed. Subsequently, following the IV administration of 119 of Optiray 320, CT angiogram of the head and neck was performed from the aortic arch to the vertex. Images are reviewed in the axial, sagittal, and coronal planes. 3-D MIPS images are created and assessed. IV contrast was administered without complication. All measurements were calculated based on NASCET criteria. A dose lowering technique was utilized adhering to the principles of ALARA. CT DOSE: 3342.33 mGy.cm FINDINGS: Brain parenchyma: There is age-related involutional change noting mild subcortical and periventricular microangiopathic disease. There is no hemorrhage, mass effect, or evidence of acute territorial ischemia by CT criteria. There is no evidence of enhancing mass lesion on the angiogram phase images. The ventricles, sulci, and cisterns are prominent secondary to involutional change. 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 Cagle-white matter differentiation is preserved. No extra-axial fluid collection is seen. Thoracic aorta: There is atherosclerotic calcification of the thoracic aorta. Visualized portions of the thoracic aorta are normal in caliber. The aortic arch demonstrates standard 3-vessel anatomy. Right carotid arterial system: The right common carotid artery is widely patent, as are the right internal and external carotid arteries. Calcified plaque is noted in the carotid bulb. Left carotid arterial system: The left common carotid artery is widely patent, as are the left internal and external carotid arteries. Calcified plaque is noted in the carotid bulb. Vertebral arteries: There is mild stenosis at the origin of the right vertebral artery. The vertebral arteries are otherwise widely patent bilaterally and codominant. Subclavian arteries: Widely patent bilaterally. Intracranial vasculature: There is atherosclerotic calcification of the cavernous carotid and vertebral arteries The internal carotid arteries are patent at the skull base, as are the anterior and middle cerebral arteries bilaterally. The vertebrobasilar system and posterior cerebral arteries are wi isabella patent. The vertebral arteries are codominant. There is no aneurysm, high- grade stenosis, or focal vessel cut off seen throughout the intracranial circulation. Jugular veins: Patent bilaterally. Dural sinuses: Patent. Lung apices: Partially visualized upper lobe lung parenchyma appears clear. Soft tissues: The visualized pharyngeal soft tissues are normal in appearance noting angiographic phase technique. The oropharyngeal airway appears widely patent. The salivary and thyroid glands are normal in appearance. No cervical lymphadenopathy is seen. Skeletal structures: The skeletal structures are osteopenic. The calvarium appears intact. The cervical spine is maintained noting multilevel spondylosis. No lytic or blastic lesion is seen. Orbits: The bony orbits are intact. Orbital contents are normal as visualized noting bilateral ocular lens implants. Sinuses and mastoids: The paranasal sinuses are clear. There are right larger than left mastoid effusions. IMPRESSION: 1. There is no hemorrhage, mass effect, or evidence of acute territorial ischemia by CT criteria. 2. Unremarkable CT angiogram of the brain. 3. There is mild stenosis at the origin of the right vertebral artery. 4. Otherwise unremarkable CT angiogram of the neck. ACT 112: Negative or not required by law. Electronically signed by: Ashish Espinosa M.D. 01/22/2022 6:57 PM MDM Narrative Patient was seen and evaluated as above in room D01. Review was performed of nursing notes and vital signs. I did review pertinent previous visits and patient history. After obtaining a thorough history and physical examination the above work up was performed. Patient presents to us today for evaluation of injury status post fall. Patient believes he fell because he became lightheaded dizzy while his left foot was propped up on a chair to tie his shoe. He clinically appears well and nontoxic on examination. GCS 15. No neurovascular deficit. Stroke scale 0. Options of care were discussed with the patient. IV access was established. Labs were drawn. He was hydrated with normal saline. CTA was obtained of the head and neck to evaluate for CVA but also I obtained CT scans of the chest, abd omen and pelvis to evaluate for trauma. Results as above. It is felt that the benefit outweighs the risk. 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 Benefit versus risk of inpatient versus outpatient management discussed. Patient persists with feeling a "heaviness" in his head. At this time it is felt reasonable to admit the patient to the hospital for further evaluation and management of his symptoms. Case discussed with the hospitalist service. Please refer to further documentation regarding his stay. Consent was obtained and I cleansed the wounds of the back with sterile saline and iodine. Bacitracin dressing applied. These are not amenable to repair. No foreign bodies appreciated. Labs reveal no significant leukocytosis. Mild anemia noted. No emergent metabolic disturbance. BUN 24. Glucose 105. EKG: Sinus ford at 55 BPM. QTC 426, QRS 88. Case was discussed with the attending physician. GCS: 15 In the evaluation and treatment of this patient the following differential diagnoses were entertained: Meningitis, encephalitis, contusion, intra-abdominal injury, intrathoracic injury, CVA, TIA, among others. Impression & Plan Dizziness, Fall, Superficial laceration of back Discharge Plan Visit Data Chief Complaint: Fall ED Provider: Pankaj Gomez ED Midlevel Provider: Mahendra Demarco Discharge Problem: Dizziness, Fall, Superficial laceration of back Patient Disposition: Admitted As Inpatient Condition: Good Discharge Instructions Interventions: ED Discharge Assessment Last Done: 01/22/22 22:19 Addendum January 23, 2022 01:36 HPI: The patient is an 81 y/o gentleman with a pmhx of HTN, HLD, BPH, GERD who presents to the emergency department for evaluation of acute onset dizziness and fall when attempting to tie his shoe [employer]. He suffered minor superficial wound to his back. He describes vertigo with movement in his vision. A/P: EKG: Sinus bradycardia, 55 bpm, no ectopy, no overt ST elevation or depression. CXR unremarkable. CT head and CTA head and neck negative for ICH, ischemia, or severe narrowing or occlusion of large vessels. CT chest, abd/pelvis performed, negative for acute traumatic findings. 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 Wound cleaned per JORDAN Bamat's note. Patient still symptomatic despite IVF hydration. Admit for further evaluation. I was consulted by the Advanced Practice Provider.I performed a substantive portion of the visit.This includes aspects of the HPI, MDM, diagnostic int erpretations, and disposition/plan. I discussed the case with the JORDAN and agree with the findings and plan as documented in JORDAN Bamat's note.
[2022-01-22 17:51] LABS: Eosinophils # (auto) 0.16 K/uL (0-0.50); Eosinophils % (auto) 3.1 %; Hemoglobin 13.2 g/dl (14.0-18.0); Immature Granulocytes # (auto) 0.03 K/uL (0.00-0.02); Immature Granulocytes % (auto) 0.6 %; Lymphocytes # (auto) 0.72 K/uL (1.2-3.4); Lymphocytes % (auto) 14.1 %; Mean Corpuscular Hemoglobin 30.6 pg (25.0-34.0); Mean Corpuscular Hgb Conc 33.8 g/dL (32.0-36.0); Mean Corpuscular Volume 90.3 fL (80.0-100.0); Mean Platelet Volume 11.3 fL (9.4-12.4); Monocytes # (auto) 0.57 K/uL (0.24-0.82); Monocytes % (auto) 11.2 %; Neutrophils # (auto) 3.61 K/uL (1.4-6.5); Platelet Count 149 K/uL (130-400); RDW Coefficient of Variation 13.3 % (11.5-14.5); RDW Standard Deviation 44.2 fL (36.4-46.3); Red Blood Count 4.32 M/uL (4.63-6.08); White Blood Count 5.09 K/ul (4.8-10.8)
[2022-01-22 17:59] LABS: Partial Thromboplastin Ratio 0.9; Partial Thromboplastin Time 25.6 Seconds (21.0-31.0); Prothrombin Time 10.8 Seconds (9.0-12.0)
[2022-01-22 18:08] LABS: Albumin Globulin Ratio 1.4 (0.9-2); Albumin Level 4.1 gm/dl (3.4-5.0); BUN Creatinine Ratio 20.3 (10-20); Bilirubin,Total 0.8 mg/dl (0.2-1.0); Calcium 9.2 mg/dl (8.5-10.1); Creatinine Clr Calc Pharmacy 56.6 ml/min; Est GFR (African American) 66.7 ml/min; Est GFR (Non-African American) 57.5 ml/min; Globulin 2.9 gm/dl (2.5-4.0); Potassium 3.8 mmol/L (3.5-5.1)
[2022-01-22] MEDS ORDERED: SODIUM CHLORIDE 0.9% 500 ML IV ONE (18:30)
[2022-01-22] MEDS ORDERED: OPTIRAY 320 125ml IV ONE (18:32)
--- NOTE | 2022-01-22 18:59 | CT Scan Report ---
CT ANGIOGRAM OF THE BRAIN COMBO; CT ANGIOGRAM OF THE NECK CLINICAL HISTORY: Syncope. Dizziness. Fall. COMPARISON STUDY: No priors. TECHNIQUE: Unenhanced axial CT scan of the brain is performed. Subsequently, following the IV adminis tration of 119 of Optiray 320, CT angiogram of the head and neck was performed from the aortic arch t o the vertex. Images are reviewed in the axial, sagittal, and coronal planes. 3-D MIPS images are cre ated and assessed. IV contrast was administered without complication. All measurements were calculate d based on NASCET criteria. A dose lowering technique was utilized adhering to the principles of ALA RA. CT DOSE: 3342.33 mGy.cm FINDINGS: Brain parenchyma: There is age-related involutional change noting mild subcortical and periventricula r microangiopathic disease. There is no hemorrhage, mass effect, or evidence of acute territorial isc hemia by CT criteria. There is no evidence of enhancing mass lesion on the angiogram phase images. Th e ventricles, sulci, and cisterns are prominent secondary to involutional change. A chronic lacunar i nfarct is noted in the right cerebellar hemisphere. Cagle-white matter differentiation is preserved. N o extra-axial fluid collection is seen. Thoracic aorta: There is atherosclerotic calcification of the thoracic aorta. Visualized portions of the thoracic aorta are normal in caliber. The aortic arch demonstrates standard 3-vessel anatomy. Right carotid arterial system: The right common carotid artery is widely patent, as are the right int ernal and external carotid arteries. Calcified plaque is noted in the carotid bulb. Left carotid arterial system: The left common carotid artery is widely patent, as are the left director internal audit al and external carotid arteries. Calcified plaque is noted in the carotid bulb. Vertebral arteries: There is mild stenosis at the origin of the right vertebral artery. The vertebral arteries are otherwise widely patent bilaterally and codominant. Subclavian arteries: Widely patent bilaterally. Intracranial vasculature: There is atherosclerotic calcification of the cavernous carotid and vertebr al arteries The internal carotid arteries are patent at the skull base, as are the anterior and middl e cerebral arteries bilaterally. The vertebrobasilar system and posterior cerebral arteries are widel y patent. The vertebral arteries are codominant. There is no aneurysm, high-grade stenosis, or focal vessel cut off seen throughout the intracranial circulation. Jugular veins: Patent bilaterally. Dural sinuses: Patent. Lung apices: Partially visualized upper lobe lung parenchyma appears clear. Soft tissues: The visualized pharyngeal soft tissues are normal in appearance noting angiographic pha se technique. The oropharyngeal airway appears widely patent. The salivary and thyroid glands are nor mal in appearance. No cervical lymphadenopathy is seen. Skeletal structures: The skeletal structures are osteopenic. The calvarium appears intact. The cervic al spine is maintained noting multilevel spondylosis. No lytic or blastic lesion is seen. Orbits: The bony orbits are intact. Orbital contents are normal as visualized noting bilateral ocular lens implants. Sinuses and mastoids: The paranasal sinuses are clear. There are right larger than left mastoid effus ions. IMPRESSION: 1. There is no hemorrhage, mass effect, or evidence of acute territorial ischemia by CT criteria. 2. Unremarkable CT angiogram of the brain. 3. There is mild stenosis at the origin of the right vertebral artery. 4. Otherwise unremarkable CT angiogram of the neck. ACT 112: Negative or not required by law. Electronically signed by: Ashish Espinosa M.D. 01/22/2022 6:57 PM
--- NOTE | 2022-01-22 19:26 | CT Scan Report ---
CT SCAN OF THE CHEST, ABDOMEN, AND PELVIS WITH IV CONTRAST CLINICAL HISTORY: Syncope. Dizziness. Back pain. COMPARISON STUDY: Chest CT dated 05/05/2021. TECHNIQUE: Following the IV administration of 190 of Optiray 320, CT scan of the chest, abdomen, and pelvis was performed from the thoracic inlet to the proximal femora. Images are reviewed in the axial , sagittal, and coronal planes. IV contrast was administered without complication. A dose lowering t echnique was utilized adhering to the principles of ALARA. The examination is degraded by streak jose fact from the arms which could not be related above the chest or abdomen. FINDINGS: CHEST: Thyroid: Imaged portions of the thyroid gland are normal in size and attenuation. Thoracic aorta: There is atherosclerotic calcification of the thoracic aorta, which is normal in raven chani and demonstrates standard 3-vessel arch anatomy. No dissection is seen. Pulmonary vasculature: The pulmonary trunk is normal in caliber. There are no filling defects identif ied in the central pulmonary vessels to indicate pulmonary embolus. Note that this examination was no t protocoled for evaluation of the pulmonary arteries. Heart: The heart is mildly enlarged and without pericardial effusion. The coronary arteries and aorti c valve leaflets are densely calcified. Lungs and pleural spaces: Subpleural parenchymal scarring is seen throughout both lungs, greatest at the lung bases. There is no airspace consolidation typical for pneumonia or pleural effusion. The tra dayna and central airways are clear. No pneumothorax is identified. There are punctate calcified granu kary. Mediastinum: There is no mediastinal hematoma or lymphadenopathy. Radha: Clear. Axillae: There is no axillary lymphadenopathy. Bony thorax: The skeletal structures are osteopenic. The bony thorax appears intact. No lytic or link tic lesions are identified. Soft tissues: Mild soft tissue contusion is suggested in the right mid back on image #217. ABDOMEN AND PELVIS: Liver: The contrast-enhanced liver is normal in size, contour, and attenuation. There is no intrahepa tic biliary ductal dilatation. Pneumobilia is noted in the left lobe. The hepatic veins and portal ve ins are patent. Gallbladder: There is a large calcified gallstone. There is evidence of a fistula between the gallbla dder and the hepatic flexure, best seen on axial image #97. There is mild associated pericholecystic infiltration. Spleen: Normal in size and attenuation. Pancreas: Atrophic and grossly unremarkable. Adrenal glands: Unremarkable. Kidneys: The contrast enhanced kidneys demonstrate mild cortical atrophy and are without hydronephros is. The kidneys enhance symmetrically. There are least 2 nonobstructing left renal calculi measuring up to 3 mm. Small bilateral renal cysts measure up to 2.1 cm. Additional subcentimeter cortical hypod ensities also likely represent cysts but are too small for definitive characterization. Abdominal vasculature: The abdominal aorta is normal in course and caliber noting advanced atheroscle rotic calcification. Stomach and bowel: There is a tiny hiatal hernia. There is moderate to advanced colonic diverticulosi s without CT evidence of acute diverticulitis. No bowel obstruction is seen. Duodenal diverticula are noted. The appendix is well-visualized and normal. Peritoneum: There is no intraperitoneal free air or abdominal ascites. Lymphadenopathy: None. Pelvic viscera: The prostate gland is mildly enlarged and heterogeneous. The bladder wall appears thi ckened and trabeculated indicating chronic outlet obstruction. There are small bilateral fat-containi ng inguinal hernias. Skeletal structures: The skeletal structures are osteopenic. The lumbosacral spine, bony pelvis, and proximal femora appear intact. There is mild lumbosacral spondylosis. No lytic or blastic lesions are seen. Soft tissues: Mild contusion is suggested in the lower back on image #2011. IMPRESSION: 1. Parenchymal scarring is seen throughout both lungs with no airspace consolidation, pleural effusio n, or pneumothorax. 2. Mild soft tissue contusions are suggested in the soft tissues of the mid to lower back as above. C linical correlation will be required. 3. There is no evidence of solid organ injury in the abdomen or pelvis. 4. There is cholelithiasis with evidence of a fistula between the gallbladder and the right colon. Pn eumobilia in the left lobe of the liver may be related, and there is mild pericholecystic infiltratio n. Surgical follow-up is advised. 5. Mild cardiomegaly. 6. No fracture is seen. 7. Advanced colonic diverticulosis without CT evidence of acute diverticulitis. 8. Left-sided nephrolithiasis. 9. Additional findings as above. ACT 112: Negative or not required by law. Electronically signed by: Ashish Espinosa M.D. 01/22/2022 7:24 PM
--- NOTE | 2022-01-22 20:23 | History & Physical Report ---
Date of Service January 22, 2022 Assessment & Plan (1) Near syncope: Plan: - Dizziness, lightheadedness, head heaviness preceding fall without loss of consciousness. - Differential includes vertigo versus CVA versus aortic stenosis. CVA feels unlikely, CT head and CTA head and neck without acute findings, presentation not concerning for for CVA. Although he does have several risk factors. Patient has history of what sounds like BPPV, this did occur as patient bent over suddenly to tie shoe which she says does cause often him to feel dizzy and lightheaded. Murmur consistent with heard on exam, patient reports history of severe murmur, aortic stenosis may have caused near syncope event. - We will order MRI to rule out CVA, as well as obtain lipid panel and A1c in AM. - We will order echo as part of cardiac work-up, but also for evaluation of aortic stenosis and other possible valvular disease. - PT and OT ordered for evaluation, with instructions to perform Carrie-Hallpike maneuver. - Maintenance IVF 100 cc/hour times 1L overnight. (2) Aortic stenosis: Plan: - Evidence on exam, and reported by patient. - Echo as above for further evaluation. - Maintain adequate hydration status. (3) Fistula of gallbladder: Plan: - CT A/P showed evidence of a fistula between the gallbladder and the hepatic flexure, best seen on axial image #97. There is mild associated pericholecystic infiltration. - Patient has no signs/symptoms of infection, apparently he has known about this fistula for a year or so. He does receive all his care at the [facility] clinic. He was told previously that this may be a result of scar tissue after a stent was placed in his gallbladder ducts in 2017; Patient is scheduled for colonoscopy this for further evaluation. - Will obtain surgical consult for second opinion. (4) Hypertension: Plan: - Continue amlodipine, lisinopril, carvedilol. (5) Hyperlipidemia: Plan: - Continue rosuvastatin. (6) Depression: Plan: - Continue citalopram 20 mg daily. (7) GERD (gastroesophageal reflux disease): Plan: - Continue omeprazole 20 mg daily. (8) Vitamin B12 deficiency: Plan: - Continue 500 mcg B12 on Mondays, Wednesdays, and Fridays. Plan - Obs med/tele. - SCDs for VTE ppx. - DNR/DNI. History of Present Illness Chief Complaint: Near syncope this evening Primary Care Provider: NO PCP Bradley Castillo is an 81-year-old male with past medical history significant for hyperlipidemia, hypertension, aortic stenosis, depression, vitamin B12 deficiency, Villeda's palsy, and GERD who presents today after a fall at home. Patient was standing up with his right foot on a chair in order to tie his shoe. As he was leaning over, he suddenly felt dizzy and lightheaded, but also describes a sense of feeling heavy in his head and suddenly fell backward, hitting his back against a filing cabinet and glass. He did not hit his head or lose consciousness during the episode, he did suffer a laceration on his back but denies any other injuries. Patient states he often feels lightheaded and dizzy with sudden movements and has been told it may be due to elevated blood pressure or related to fluid pressure in his inner ear. The heaviness in his head had him concerned for stroke, therefore he presented to the ED for further evaluation. Patient does not have any focal neurological deficits, other than a left-sided facial droop, left-sided eye droop, and occasional drooling which is residual from Villeda's palsy several years ago, he is confident it is unchanged today. He denies chest pain, palpitations, shortness of breath prior to the fall. He has been eating and drinking well, without fever/chills, weakness, fatigue, abdominal pain, nausea, vomiting. Of note, patient does receive all his care through the [facility], therefore medical records are not available. In ED, patient is hypertensive, otherwise vital signs within normal limits. Labs largely unremarkable. Head CT without hemorrhage, mass effect, or evidence of acute territorial ischemia. Head/neck CTA with mild stenosis of R vertebral artery. Chest CT with mild cardiomegaly, b/l parenchymal lung scarring. 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 Pneumobilia in the left lobe of the liver may be related, and there is mild pericholecystic infiltration. Advanced colonic diverticulosis without CT evidence of acute diverticulitis. Left-sided nephrolithiasis. Allergies Allergy/AdvReac Type Severity Reaction Status Date / Time atorvastatin [From Lipitor] Allergy Unknown Verified 05/06/21 02:44 Home Medications Medication Instructions Recorded Confirmed Type Lactobacillus acidoph-L.bulgaricus 1 tab PO DAILY 05/05/21 05/05/21 History 1 million cell tablet acetaminophen 325 mg tablet 650 mg PO DIRECTED PRN 05/05/21 05/05/21 History (Tylenol) FEVER/PAIN amlodipine 2.5 mg tablet 2.5 mg PO DAILY 05/05/21 05/05/21 History aspirin 81 mg tablet,delayed 81 mg PO DAILY 05/05/21 05/05/21 History release baclofen 5 mg tablet 5 mg PO TID PRN Hiccups 05/05/21 05/05/21 History carvedilol 3.125 mg tablet 3.125 mg PO BID 05/05/21 05/05/21 History cholecalciferol (vitamin D3) 25 0 mcg PO DAILY 05/05/21 05/05/21 History mcg (1,000 unit) capsule (Vitamin D3) citalopram 20 mg tablet (Celexa) 20 mg PO DAILY 05/05/21 05/05/21 History cyanocobalamin (vitamin B-12) 0 mcg PO DAILY 05/05/21 05/05/21 History 1,000 mcg tablet (Vitamin B-12) lisinopril 20 mg tablet 20 mg PO DAILY 05/05/21 05/05/21 History omeprazole 20 mg capsule,delayed 20 mg PO DAILY 05/05/21 05/05/21 History release potassium chloride 10 mEq 10 meq PO BID 05/05/21 05/05/21 History capsule,extended release rosuvastatin 40 mg tablet 20 mg PO DAILY 05/05/21 05/05/21 History Oxygen Home #1 ea 05/09/21 Rx azithromycin 250 mg tablet 250 mg PO DAILY #1 tab 05/09/21 Rx dexamethasone sodium phos (PF) 10 6 mg (0.6 mL) IV DAILY #3 mL 05/09/21 Rx mg/mL injection syringe guaifenesin 600 mg tablet, 1,200 mg PO Q12 #60 tabs 05/09/21 Rx extended release 12 hr (Mucinex) tamsulosin 0.4 mg capsule 0.4 mg PO HS #30 caps 05/09/21 Rx zinc sulfate 50 mg zinc (220 mg) 220 mg PO QAM #30 caps 05/09/21 Rx capsule (Orazinc) Past Med/Surg History Medical History Depression Diabetes mellitus GERD (gastroesophageal reflux disease) Hyperlipidemia Hypertension Muscle spasm Obesity (BMI 30-39.9) Vitamin B12 deficiency Social History Smoking Status: Former smoker Second Hand Exposure: No; Hx Alcohol Use: No Hx Substance Use: No Preferred Language: Portuguese Communication Ability: Effective 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 Beliefs That Will Affect Care: None marital status: / Current Living Situation: Alone and Family Current Living Situation Comment: Daughter How many Children do You have: 4 Feels Safe at Home: Yes Safety Concerns: Feels Safe At This Time Assistive Devices: Cane Review of Systems Review of Systems: Constitutional: Lightheadedness and dizziness this evening; no fever/chills, weakness, fatigue, myalgias, anorexia, night sweats Eyes: No diplopia, no worsening or blurred vision ENT: normal hearing, no trouble swallowing Respiratory: No cough, sputum, dyspnea at rest or on exertion Cardiovascular: No chest pain, tightness or palpitations Abdomen: No pain, nausea, vomiting, diarrhea or constipation : Denies dysuria, hematuria, increased urgency/frequency, urinary retention Musculoskeletal: No joint pain, calf pain, swelling Neurologic: No weakness, numbness/tingling, or balance problems Psychiatric: No anxiety or depression Skin: No rash or itch Physical Exam Physical Exam: General: awake, alert, no apparent distress Head: Normocephalic, atraumatic ENT: Left-sided facial droop, left-sided eye droop consistent with patient's reported history of Villeda's palsy; PERRL, EOMI, no pharyngeal exudate, mucous mem branes moist Chest: Clear to auscultation, on room air, no adventitious breath sounds Cardiac: Systolic murmur present consistent with aortic stenosis; Regular rate and rhythm, no JVD, normal peripheral pulses, good capillary refill Abdominal: NABS x 4 quadrants, soft, nontender to palpation, no rebound, guarding or tenderness Extremities: Normal inspection, no peripheral edema or erythema, calfs nontender to palpation Psych: Normal mood and affect Neuro: AAO x 3, strength intact bilaterally and rated 5/5, no motor deficits, speech is clear, no peripheral sensory deficits Skin: no rash or erythema Results & Data Results & Data ([facility]) Vital Signs (Past 12 Hours) Vital Signs Temp Pulse Pulse Resp BP BP Pulse Ox 01/22/22 20:05 160/68 H 01/22/22 18:58 62 18 98 01/22/22 18:13 67 27 H 95 01/22/22 18:12 149/88 H 01/22/22 18:16 54 L 20 96 01/22/22 17:02 36.7 C 70 20 189/101 H 94 O2 Del Method 01/22/22 20:05 01/22/22 18:58 Room Air 01/22/22 18:13 01/22/22 18:12 01/22/22 18:16 Nasal Cannula 01/22/22 17:02 Room Air Laboratory Results Abnormal lab results 01/22/22 01/22/22 Range/Units 17:37 17:37 RBC 4.32 L (4.63-6.08) M/uL Hgb 13.2 L (14.0-18.0) g/dl Hct 39.0 L (40.1-51.0) % Lymph # (Auto) 0.72 L (1.2-3.4) K/uL Immature Gran # (Auto) 0.03 H (0.00-0.02) K/uL BUN 24 H (6-23) mg/dl BUN/Creatinine Ratio 20.3 H (10-20) Glucose 105 H (70-99(Fasting)) mg/dl Diagnostic Findings Abdomen/Pelvis CT 01/22/22 17:13 CT SCAN OF THE CHEST, ABDOMEN, AND PELVIS WITH IV CONTRAST CLINICAL HISTORY: Syncope. Dizziness. Back pain. COMPARISON STUDY: Chest CT dated 05/05/2021. TECHNIQUE: Following the IV administration of 190 of Optiray 320, CT scan of the chest, abdomen, and pelvis was performed from the thoracic inlet to the proximal femora. Images are reviewed in the axial, sagittal, and coronal planes. IV contrast was administered without complication. A dose lowering technique was utilized adhering to the principles of ALARA. The examination is degraded by streak artifact from the arms which could not be related above the chest or abdomen. FINDINGS: CHEST: Thyroid: Imaged portions of the thyroid gland are normal in size and attenuati on. Thoracic aorta: There is atherosclerotic calcification of the thoracic aorta, which is normal in caliber and demonstrates standard 3-vessel arch anatomy. No dissection is seen. Pulmonary vasculature: The pulmonary trunk is normal in caliber. There are no filling defects identified in the central pulmonary vessels to indicate pulmonary embolus. Note that this examination was not protocoled for evaluation of the pulmonary arteries. Heart: The heart is mildly enlarged and without pericardial effusion. The coronary arteries and aortic valve leaflets are densely calcified. Lungs and pleural spaces: Subpleural parenchymal scarring is seen throughout both lungs, greatest at the lung bases. There is no airspace consolidation typical for pneumonia or pleural effusion. The trachea and central airways are clear. No pneumothorax is identified. There are punctate calcified granulomas. Mediastinum: There is no mediastinal hematoma or lymphadenopathy. Radha: Clear. Axillae: There is no axillary lymphadenopathy. Bony thorax: The skeletal structures are osteopenic. The bony thorax appears intact. No lytic or blastic lesions are identified. Soft tissues: Mild soft tissue contusion is suggested in the right mid back on image #217. ABDOMEN AND PELVIS: Liver: The contrast-enhanced liver is normal in size, contour, and attenuation. There is no intrahepatic biliary ductal dilatation. Pneumobilia is noted in the left lobe. The hepatic veins and portal veins are patent. Gallbladder: There is a large calcified gallstone. 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 There is mild associated pericholecystic infiltration. Spleen: Normal in size and attenuation. Pancreas: Atrophic and grossly unremarkable. Adrenal glands: Unremarkable. Kidneys: The contrast enhanced kidneys demonstrate mild cortical atrophy and are without hydronephrosis. The kidneys enhance symmetrically. There are least 2 nonobstructing left renal calculi measuring up to 3 mm. Small bilateral renal cysts measure up to 2.1 cm. Additional subcentimeter cortical hypodensities also likely represent cysts but are too small for definitive characterization. Abdominal vasculature: The abdominal aorta is normal in course and caliber noting advanced atherosclerotic calcification. Stomach and bowel: There is a tiny hiatal hernia. There is moderate to advanced colonic diverticulosis without CT evidence of acute diverticulitis. No bowel obstruction is seen. Duodenal diverticula are noted. The appendix is well- visualized and normal. Peritoneum: There is no intraperitoneal free air or abdominal ascites. Lymphadenopathy: None. Pelvic viscera: The prostate gland is mildly enlarged and heterogeneous. The bladder wall appears thickened and trabeculated indicating chronic outlet obstruction. There are small bilateral fat-containing inguinal hernias. Skeletal structures: The skeletal structures are osteopenic. The lumbosacral spine, bony pelvis, and proximal femora appear intact. There is mild lumbosacral spondylosis. No lytic or blastic lesions are seen. Soft tissues: Mild contusion is suggested in the lower back on image #2011. IMPRESSION: 1. Parenchymal scarring is seen throughout both lungs with no airspace consolidation, pleural effusion, or pneumothorax. 2. Mild soft tissue contusions are suggested in the soft tissues of the mid to lower back as above. Clinical correlation will be required. 3. There is no evidence of solid organ injury in the abdomen or pelvis. 4. There is cholelithiasis with evidence of a fistula between the gallbladder and the right colon. Pneumobilia in the left lobe of the liver may be related, and there is mild pericholecystic infiltration. Surgical follow-up is advised. 5. Mild cardiomegaly. 6. No fracture is seen. 7. Advanced colonic diverticulosis without CT evidence of acute diverticulitis. 8. Left-sided nephrolithiasis. 9. Additional findings as above. ACT 112: Negative or not required by law. Electronically signed by: Ashish Espinosa M.D. 01/22/2022 7:[address] 01/22/22 17:13 CT SCAN OF THE CHEST, ABDOMEN, AND PELVIS WITH IV CONTRAST CLINICAL HISTORY: Syncope. Dizziness. Back pain. COMPARISON STUDY: Chest CT dated 05/05/2021. TECHNIQUE: Following the IV administration of 190 of Optiray 320, CT scan of the chest, abdomen, and pelvis was performed from the thoracic inlet to the proximal femora. Images are reviewed in the axial, sagittal, and coronal planes. IV contrast was administered without complication. A dose lowering technique was utilized adhering to the principles of ALARA. The examination is degraded by streak artifact from the arms which could not be related above the chest or abdomen. FINDINGS: CHEST: Thyroid: Imaged portions of the thyroid gland are normal in size and attenuation. Thoracic aorta: There is atherosclerotic calcification of the thoracic aorta, which is normal in caliber and demonstrates standard 3-vessel arch anatomy. No dissection is seen. Pulmonary vasculature: The pulmonary trunk is normal in caliber. There are no filling defects identified in the central pulmonary vessels to indicate pulmonary embolus. Note that this examination was not protocoled for evaluation of the pulmonary arteries. Heart: The heart is mildly enlarged and without pericardial effusion. The coronary arteries and aortic valve leaflets are densely calcified. Lungs and pleural spaces: Subpleural parenchymal scarring is seen throughout both lungs, greatest at the lung bases. There is no airspace consolidation typical for pneumonia or pleural effusion. The trachea and central airways are clear. No pneumothorax is identified. There are punctate calcified granulomas. Mediastinum: There is no mediastinal hematoma or lymphadenopathy. Radha: Clear. Axillae: There is no axillary lymphadenopathy. Bony thorax: The skeletal structures are osteopenic. The bony thorax appears intact. No lytic or blastic lesions are identified. Soft tissues: Mild soft tissue contusion is suggested in the right mid back on image #217. ABDOMEN AND PELVIS: Liver: The contrast-enhanced liver is normal in size, contour, and attenuation. There is no intrahepatic biliary ductal dilatation. Pneumobilia is noted in the left lobe. The hepatic veins and portal veins are patent. Gallbladder: There is a large calcified gallstone. 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 There is mild associated pericholecystic infiltration. Spleen: Normal in size and attenuation. Pancreas: Atrophic and grossly unremarkable. Adrenal glands: Unremarkable. Kidneys: The contrast enhanced kidneys demonstrate mild cortical atrophy and are without hydronephrosis. The kidneys enhance symmetrically. There are least 2 nonobstructing left renal calculi measuring up to 3 mm. Small bilateral renal c ysts measure up to 2.1 cm. Additional subcentimeter cortical hypodensities also likely represent cysts but are too small for definitive characterization. Abdominal vasculature: The abdominal aorta is normal in course and caliber noting advanced atherosclerotic calcification. Stomach and bowel: There is a tiny hiatal hernia. There is moderate to advanced colonic diverticulosis without CT evidence of acute diverticulitis. No bowel obstruction is seen. Duodenal diverticula are noted. The appendix is well- visualized and normal. Peritoneum: There is no intraperitoneal free air or abdominal ascites. Lymphadenopathy: None. Pelvic viscera: The prostate gland is mildly enlarged and heterogeneous. The bladder wall appears thickened and trabeculated indicating chronic outlet obstruction. There are small bilateral fat-containing inguinal hernias. Skeletal structures: The skeletal structures are osteopenic. The lumbosacral spine, bony pelvis, and proximal femora appear intact. There is mild lumbosacral spondylosis. No lytic or blastic lesions are seen. Soft tissues: Mild contusion is suggested in the lower back on image #2011. IMPRESSION: 1. Parenchymal scarring is seen throughout both lungs with no airspace consolidation, pleural effusion, or pneumothorax. 2. Mild soft tissue contusions are suggested in the soft tissues of the mid to lower back as above. Clinical correlation will be required. 3. There is no evidence of solid organ injury in the abdomen or pelvis. 4. There is cholelithiasis with evidence of a fistula between the gallbladder and the right colon. Pneumobilia in the left lobe of the liver may be related, and there is mild pericholecystic infiltration. Surgical follow-up is advised. 5. Mild cardiomegaly. 6. No fracture is seen. 7. Advanced colonic diverticulosis without CT evidence of acute diverticulitis. 8. Left-sided nephrolithiasis. 9. Additional findings as above. ACT 112: Negative or not required by law. Electronically signed by: Ashish Espinosa M.D. 01/22/2022 7:24 PM Head CTA 01/22/22 17:13 CT ANGIOGRAM OF THE BRAIN COMBO; CT ANGIOGRAM OF THE NECK CLINICAL HISTORY: Syncope. Dizziness. Fall. COMPARISON STUDY: No priors. TECHNIQUE: Unenhanced axial CT scan of the brain is performed. Subsequently, following the IV administration of 119 of Optiray 320, CT angiogram of the head and neck was performed from the aortic arch to the vertex. Images are reviewed in the axial, sagittal, and coronal planes. 3-D MIPS images are created and assessed. IV contrast was administered without complication. All measurements were calculated based on NASCET criteria. A dose lowering technique was utilized adhering to the principles of ALARA. CT DOSE: 3342.33 mGy.cm FINDINGS: Brain parenchyma: There is age-related involutional change noting mild subcortical and periventricular microangiopathic disease. There is no hemorrhage, mass effect, or evidence of acute territorial ischemia by CT criteria. There is no evidence of enhancing mass lesion on the angiogram phase images. The ventricles, sulci, and cisterns are prominent secondary to involutional change. 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 Cagle-white matter differentiation is preserved. No extra-axial fluid collection is seen. Thoracic aorta: There is atherosclerotic calcification of the thoracic aorta. Visualized portions of the thoracic aorta are normal in caliber. The aortic arch demonstrates standard 3-vessel anatomy. Right carotid arterial system: The right common carotid artery is widely patent, as are the right internal and external carotid arteries. Calcified plaque is noted in the carotid bulb. Left carotid arterial system: The left common carotid artery is widely patent, as are the left internal and external carotid arteries. Calcified plaque is noted in the carotid bulb. Vertebral arteries: There is mild stenosis at the origin of the right vertebral artery. The vertebral arteries are otherwise widely patent bilaterally and codominant. Subclavian arteries: Widely patent bilaterally. Intracranial vasculature: There is atherosclerotic calcification of the cavernous carotid and vertebral arteries The internal carotid arteries are patent at the skull base, as are the anterior and middle cerebral arteries bilaterally. The vertebrobasilar system and posterior cerebral arteries are widely patent. The vertebral arteries are codominant. There is no aneurysm, high-grade stenosis, or focal vessel cut off seen throughout the intracranial circulation. Jugular veins: Patent bilaterally. Dural sinuses: Patent. Lung apices: Partially visualized upper lobe lung parenchyma appears clear. Soft tissues: The visualized pharyngeal soft tissues are normal in appearance noting angiographic phase technique. The oropharyngeal airway appears widely patent. The salivary and thyroid glands are normal in appearance. No cervical lymphadenopathy is seen. Skeletal structures: The skeletal structures are osteopenic. The calvarium appears intact. The cervical spine is maintained noting multilevel spondylosis. No lytic or blastic lesion is seen. Orbits: The bony orbits are intact. Orbital contents are normal as visualized noting bilateral ocular lens implants. Sinuses and mastoids: The paranasal sinuses are clear. There are right larger than left mastoid effusions. IMPRESSION: 1. There is no hemorrhage, mass effect, or evidence of acute territorial ischemia by CT criteria. 2. Unremarkable CT angiogram of the brain. 3. There is mild stenosis at the origin of the right vertebral artery. 4. Otherwise unremarkable CT angiogram of the neck. ACT 112: Negative or not required by law. Electronically signed by: Ashish Espinosa M.D. 01/22/2022 6:57 PM Neck CTA 01/22/22 17:13 CT ANGIOGRAM OF THE BRAIN COMBO; CT ANGIOGRAM OF THE NECK CLINICAL HISTORY: Syncope. Dizziness. Fall. COMPARISON STUDY: No priors. TECHNIQUE: Unenhanced axial CT scan of the brain is performed. Subsequently, following the IV administration of 119 of Optiray 320, CT angiogram of the head and neck was performed from the aortic arch to the vertex. Images are reviewed in the axial, sagittal, and coronal planes. 3-D MIPS images are created and assessed. IV contrast was administered without complication. All measurements were calculated based on NASCET criteria. A dose lowering technique was utilized adhering to the principles of ALARA. CT DOSE: 3342.33 mGy.cm FINDINGS: Brain parenchyma: There is age-related involutional change noting mild subcortical and periventricular microangiopathic disease. There is no hemorrhage, mass effect, or evidence of acute territorial ischemia by CT criteria. There is no evidence of enhancing mass lesion on the angiogram phase images. The ventricles, sulci, and cisterns are prominent secondary to involutional change. 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 Cagle-white matter differentiation is preserved. No extra-axial fluid collection is seen. Thoracic aorta: There is atherosclerotic calcification of the thoracic aorta. Visualized portions of the thoracic aorta are normal in caliber. The aortic arch demonstrates standard 3-vessel anatomy. Right carotid arterial system: The right common carotid artery is widely patent, as are the right internal and external carotid arteries. Calcified plaque is noted in the carotid bulb. Left carotid arterial system: The left common carotid artery is widely patent, as are the left internal and external carotid arteries. Calcified plaque is noted in the carotid bulb. Vertebral arteries: There is mild stenosis at the origin of the right vertebral artery. The vertebral arteries are otherwise widely patent bilaterally and codominant. Subclavian arteries: Widely patent bilaterally. Intracranial vasculature: There is atherosclerotic calcification of the cavernous carotid and vertebral arteries The internal carotid arteries are patent at the skull base, as are the anterior and middle cerebral arteries bilaterally. The vertebrobasilar system and posterior cerebral arteries are widely patent. The vertebral arteries are codominant. There is no aneurysm, high-grade stenosis, or focal vessel cut off seen throughout the intracranial circulation. Jugular veins: Patent bilaterally. Dural sinuses: Patent. Lung apices: Partially visualized upper lobe lung parenchyma appears clear. Soft tissues: The visualized pharyngeal soft tissues are normal in appearance noting angiographic phase technique. The oropharyngeal airway appears widely patent. The salivary and thyroid glands are normal in appearance. No cervical lymphadenopathy is seen. Skeletal structures: The skeletal structures are osteopenic. The calvarium appears intact. The cervical spine is maintained noting multilevel spondylosis. No lytic or blastic lesion is seen. Orbits: The bony orbits are intact. Orbital contents are normal as visualized noting bilateral ocular lens implants. Sinuses and mastoids: The paranasal sinuses are clear. There are right larger than left mastoid effusions. IMPRESSION: 1. There is no hemorrhage, mass effect, or evidence of acute territorial ischemia by CT criteria. 2. Unremarkable CT angiogram of the brain. 3. There is mild stenosis at the origin of the right vertebral artery. 4. Otherwise unremarkable CT angiogram of the neck. ACT 112: Negative or not required by law. Electronically signed by: Ashish Espinosa M.D. 01/22/2022 6:57 PM ECG Additional Comments: Sinus bradycardia Otherwise normal ECG When compared with ECG of 05-MAY-2021 16:45, No significant change was found. Code Status & VTE Plan Code Status DNR/DNI. Supervising Physician Co-Signing Physician Notes Attending addendum: I have physically seen this patient, have supervised the JORDAN's activities, and agree with the H&P unless as otherwise noted. Assessment and Plan: Near syncope- CT head without contrast negative CTA head neck negative The patient will be admitted to telemetry for serial cardiac enzymes, serial EKG's, cardiac rhythm monitoring and a 2-D echocardiogram with Dopplers. Order MRI brain without contrast NSS at 100 mils per hour x1 L Consult PT/OT Aortic stenosis/hypertension- Echocardiogram was ordered to further assess degree of AMS Continue amlodipine, lisinopril and carvedilol with hold parameters Hyperlipidemia- Continue with rosuvastatin Check a fasting lipid panel and hemoglobin A1c Remaining orders and notations as noted PG Care Time/CCT Total # of Minutes Spent Total Time Spent with Patient: Total time spent is greater than 50% in coordination of care (as documented) at patient's floor/unit and/or counseling patient: Coding Level of Care Code INT OBSERVATION CARE 70M LVL 3 Diagnoses Near syncope R55 Aortic stenosis I35.0 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
[2022-01-22] MEDS ORDERED: ONDANSETRON INJ 2 MG/ML 2 ML VIAL IV PRN (22:39)
[2022-01-22] MEDS ORDERED: POLYETHYLENE (MIRALAX) 17 GM PACK PO PRN (22:39)
[2022-01-22] MEDS ORDERED: ACETAMINOPHEN 325 MG TAB PO PRN (22:39)
[2022-01-22] MEDS ORDERED: PHARMACIST DISCHARGE MED REC CONSULT PRN (22:39)
[2022-01-22] MEDS: carvediloL 3.125 MG TAB PO SCH (23:48)
[2022-01-23 07:01] LABS: Basophils # (auto) 0.02 K/uL (0-0.2); Basophils % (auto) 0.3 %; Eosinophils # (auto) 0.17 K/uL (0-0.50); Eosinophils % (auto) 2.3 %; Hematocrit (blood only) 41.5 % (40.1-51.0); Hemoglobin 13.8 g/dl (14.0-18.0); Immature Granulocytes # (auto) 0.03 K/uL (0.00-0.02); Immature Granulocytes % (auto) 0.4 %; Lymphocytes # (auto) 0.82 K/uL (1.2-3.4); Mean Corpuscular Hemoglobin 29.9 pg (25.0-34.0); Mean Corpuscular Hgb Conc 33.3 g/dL (32.0-36.0); Mean Platelet Volume 11.5 fL (9.4-12.4); Monocytes % (auto) 12.1 %; Neutrophils # (auto) 5.51 K/uL (1.4-6.5); Neutrophils % (auto) 73.9 %; Platelet Count 177 K/uL (130-400); RDW Coefficient of Variation 13.5 % (11.5-14.5); RDW Standard Deviation 44.1 fL (36.4-46.3); Red Blood Count 4.61 M/uL (4.63-6.08); White Blood Count 7.45 K/ul (4.8-10.8)
[2022-01-23 07:19] LABS: BUN Creatinine Ratio 17.6 (10-20); Calcium 9.4 mg/dl (8.5-10.1); Chol HDL Ratio 3.2 (0-5); Creatinine Clr Calc Pharmacy 56.4 ml/min; Est GFR (Non-African American) 56.9 ml/min; Potassium 4.1 mmol/L (3.5-5.1)
[2022-01-23 07:28] LABS: Estimated Average Glucose 128 mg/dl; Hemoglobin A1C 6.1 % (4.5-5.6)
[2022-01-23] MEDS: ROSUVASTATIN CALCIUM 20 MG TAB PO SCH (08:31)
[2022-01-23] MEDS: lisinopril 20 MG TAB PO SCH ×2 (08:31→20:03)
[2022-01-23] MEDS: ZINC SULFATE 220 MG CAPSULE PO SCH (08:31)
[2022-01-23] MEDS: PANTOprazole 40 MG TAB PO SCH (08:31)
[2022-01-23] MEDS: ASPIRIN 81 MG ECTAB PO SCH (08:31)
[2022-01-23] MEDS: CITALOPRAM 20 MG TAB PO SCH (08:31)
[2022-01-23] MEDS: amLODIPine BESYLATE 5 MG TAB PO SCH (08:31)
[2022-01-23] MEDS: CYANOCOBALAMIN (B-12) 500 MCG TABLET PO SCH (08:31)
[2022-01-23] MEDS: carvediloL 3.125 MG TAB PO SCH ×2 (08:32→20:02)
[2022-01-23] MEDS: POTASSIUM CHLORIDE 10 MEQ TABCR PO SCH (08:32)
--- NOTE | 2022-01-23 08:53 | Hospitalist Progress Note ---
Date of Service January 23, 2022 Assessment & Plan (1) Near syncope: Plan: - Dizziness, lightheadedness, head heaviness preceding fall without loss of consciousness. CT head and CTA head and neck without acute findings, presentation not concerning for for CVA. Although he does have several risk factors. MRI negative for CVA,, some mastoiditis are without symptoms at this time as well as obtain lipid panel total cholesterol was 139 LDL 60 HDL 44 6.1 A1c history of BPPV, stroke 1 dose of meclizine if improves either continue meclizine or try Transderm scopolamine. Referral for outpatient Jennifer maneuver Murmur consistent with heard on exam,pending echo ecg with sinus bradycardia - PT and OT ordered for evaluation, with instructions to perform Carrie-Hallpike maneuver. 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 There is mild associated pericholecystic infiltration. - Patient has no signs/symptoms of infection, apparently he has known about this fistula for a year or so. He does receive all his care at the [facility] clinic. He was told previously that this may be a result of scar tissue after a stent was placed in his gallbladder ducts in 2017; Patient is scheduled for colonoscopy this 01/25/22 for further evaluation. surgical consult no recommendation for intervention at this time patient scheduled for colonoscopy this on 01/25/2022 Dr. Jer Colin (4) Hypertension: Plan: - Continue amlodipine, lisinopril, carvedilol. (5) Hyperlipidemia: Plan: - Continue rosuvastatin. (6) Depression: Plan: - Continue citalopram 20 mg daily. (7) GERD (gastroesophageal reflux disease): Plan: - Continue omeprazole 20 mg daily. (8) Vitamin B12 deficiency: Plan: - Continue 500 mcg B12 on Mondays, Wednesdays, and Fridays. Plan - SCDs for VTE ppx. - DNR/DNI. Admission and Anticipated Discharge Date Admission Date: January 22, 2022 Subjective Patient was symptomatic this morning still having difficulty walking and leaning towards the right. He was able to walk with a walker. He was informed that his imaging of his brain was unremarkable for stroke After discussion the patient did not feel comfortable going home we will try meclizine or even Transderm scopolamine. Review of Systems Review of Systems: Mild distress and fatigue no headache, no visual changes no diplopia no speech or swallowing issues no chest pain, pressure or palpitations no shortness of breath, cough or wheezes no abdominal pain, nausea or vomiting, diarrhea or constipation no dysuria, hematuria or frequency no focal joint pain or swelling no back pain, CVA tenderness or radicular pain no bruising, bleeding or rashes no focal signs of weakness or numbness has subjective complaints of leaning or walking towards the right-hand side no complaints of anxiety or depression. Physical Exam Physical Exam: The patient appeared well nourished and normally developed. Vital signs as documented. Head exam is normocephalic atraumatic no nystagmus was seen Neck is without JVD, thyromegaly, or carotid bruits. Lungs are clear to auscultation, no focal loss of breath sounds Cardiac exam, Rhythm is regular.. No murmurs, rubs or gallops. Abdominal exam reveals normal bowel sounds, soft non tender, no masses Extremities are nonedematous and both pedal pulses are present Neurologic exam is alert and oriented, no focal loss of strength or sensation no palmar drift or dysmetria is noted however I do not watched the patient walk Skin is without bruises or rashes Psychologically is without concerns for anxiety or depression.. Results & Data Results & Data ([facility]) Vital Signs (Past 12 Hours) Vital Signs Temp Pulse Pulse Resp BP Pulse Ox O2 Del Method 01/23/22 08:27 97.7 F 50 L 20 150/82 H 94 Room Air 01/23/22 06:02 52 L 01/23/22 06:25 98.2 F 59 L 18 144/77 H 96 Room Air 01/23/22 03:00 97.7 F 54 L 18 134/69 94 Room Air 01/22/22 23:12 99 H 20 179/80 H 96 Room Air 01/22/22 22:59 56 L 01/22/22 22:53 97.7 F 57 L 20 192/80 H 97 Room Air PG Care Time/CCT Total # of Minutes Spent Total Time Spent with Patient: Total time spent is greater than 50% in coordination of care (as documented) at patient's floor/unit and/or counseling patient: Coding Level of Care Code 30693 Subseq Obs Care Lvl 3 Diagnoses Near syncope R55 Aortic stenosis I35.0 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
--- NOTE | 2022-01-23 08:54 | Magnetic Resonance Report ---
MR brain wo con CLINICAL HISTORY: stroke like symptoms. Status post fall with lightheadedness COMPARISON STUDY: CT angiogram head from 01/22/2022 TECHNIQUE: Multiplanar multisequence images of the Brain were performed without IV contrast. FINDINGS: Extra-axial space: There is no evidence for a subdural hematoma, There are no extra-axial fluid fletcher ections. Ventricles and cisterns: The ventricles are normal in size and configuration. There is no evidence f or midline shift or mass effect. Parenchyma: There is no evidence for an acute hemorrhage or infarct. No acute diffusion abnormalities are noted on diffusion weighted imaging or ADC mapping. There is normal montalvo-white differentiation. There is mild cerebral cortical atrophy present. There is minimal bright signal seen on T2 and FLAIR weighted sequences within the centrum semiovale and periventricular white matter characteristic of re mote small vessel disease. The sulci and gyri appear normal without effacement. The midline structure s are unremarkable. The posterior fossa structures appear normal. There is no evidence for mass lesio n. Osseous structures: The paranasal sinuses are well aerated. There is extensive mucosal thickening see n involving the mastoid air cells bilaterally, right greater than left. Soft tissues: No focal soft tissue abnormalities are identified. IMPRESSION: 1. No acute intracranial abnormalities. 2. 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 3. Marked bilateral mastoiditis, right greater than left. ACT 112: Negative or not required by law. Electronically signed by: Mian Altman M.D. 01/23/2022 8:52 AM
[2022-01-23] MEDS ORDERED: amLODIPine BESYLATE 5 MG TAB PO SCH ×2 (09:00)
--- NOTE | 2022-01-23 11:47 | XCELERA ---
[id number]
[2022-01-23] MEDS ORDERED: MECLIZINE HCL 25 MG TAB PO STA (11:54)
--- NOTE | 2022-01-23 12:32 | Surgery Consultation ---
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 Currently asymptomatic without RUQ pain, nausea, vomiting. NO leukocytosis. T.bili and lfts wnl. This is a chronic finding and patient has had prior work-up and GI evaluation. Scheduled for outpatient colonoscopy/EGD/Axios stent placement with Dr. Cruz this in [place]. Plan: No surgical intervention recommended at this time as patient had prior attempted cholecystectomy which was aborted given fibrosis and scar tissue surrounding gallbladder. He is scheduled for outpatient colonoscopy and axios stent placement for fistula by Dr. Cruz this . Given his age, comorbidities, and aortic stenosis would agree with less invasive procedure for the cholecystocolonic fistula (axios stent) I personally discussed with GI team who recommended patient keep his scheduled procedures for as long as he was medically cleared for discharge here at [facility]. Our services singing off, please call with questions/concerns. Dr. Rosenberg has seen patient and agrees with above. See addendum for further recommendations/plan. Supervising Physician Co-Signing Physician Notes Seen and examined the patient personally and agree with the above assessment plan. In brief this is an 81-year-old gentleman with what appears to be a fistula from his gallbladder to his colon. This is not a new finding. He is set up for colonoscopy and possible axial stent placement by GI in a few days. He is not having any new or concerning symptoms associated with this finding. We recommend continuing with the current work-up and GI plan of colonoscopy and possible stent placement. We will sign off for now. Please call with any questions or concerns. History of Present Illness Reason for Consultation: Cholecystocolonic fistula Requesting Physician: July Wing PA-C Attending Physician: Phill Alejo MD History of Present Illness Bradley is a pleasant 81 year-old male with medical history of aortic stenosis, GERD, hyperlipidemia, depression, hypertension, Diabetes mellitus, pneumonia due to COVID, choledocholithiasis s/p stent placement in 2016 who presented to emergency department due to dizziness and fall without loss of consciousness. He underwent multiple imaging due to fall including ct scan of abdomen and pelvis which showed cholecystocolonic fistula. He is apparently scheduled for colonoscopy at [place] this . Our services consulted for second opinion on cholecystocolonic fistula. Bradley states he had stone in common bile duct in 2017 which required a stent placement and then removal. Gallbladder surgery was then attempted [facility] the [facility] but was aborted due to alot of scaring around gallbladder. He states he has known about this fistula for a few months and has a colonoscopy scheduled on in [place]. Is unsure if this is because of the fistula or because of his occasional loose stools and mild 1/10 lower abdominal discomfort. Denies of any severe RUQ abdominal pain, postprandial abdominal pain, blood in stools, black/tarry stools, recurrent episodes of choledocholithiasis since 2017 incident. He say GI at [facility] a few months back to schedule the colonoscopy. He currently denies of RUQ abdominal pain, nausea, vomiting. In review of outpatient [facility] records, patient saw Amy Cabrera PA-C with [facility] in November and is scheduled for colonoscopy/egd/ axios stent placement by Dr. Cruz this . I reached out to Amy to confirm if this is still the plan and if patient should keep this scheduled. Amy states should keep procedures scheduled on as long as cleared from medical standpoint for his current admission diagnosis (dizziness/ s/p fall) Allergies Allergy/AdvReac Type Severity Reaction Status Date / Time atorvastatin [From Lipitor] Allergy Unknown Verified 05/06/21 02:44 Home Medications Medication Instructions Recorded Confirmed Type Lactobacillus acidoph-L.bulgaricus 1 tab PO DAILY 05/05/21 05/05/21 History 1 million cell tablet acetaminophen 325 mg tablet 650 mg PO DIRECTED PRN 05/05/21 05/05/21 History (Tylenol) FEVER/PAIN amlodipine 2.5 mg tablet 2.5 mg PO DAILY 05/05/21 05/05/21 History aspirin 81 mg tablet,delayed 81 mg PO DAILY 05/05/21 05/05/21 History release baclofen 5 mg tablet 5 mg PO TID PRN Hiccups 05/05/21 05/05/21 History carvedilol 3.125 mg tablet 3.125 mg PO BID 05/05/21 05/05/21 History cholecalciferol (vitamin D3) 25 0 mcg PO DAILY 05/05/21 05/05/21 History mcg (1,000 unit) capsule (Vitamin D3) citalopram 20 mg tablet (Celexa) 20 mg PO DAILY 05/05/21 05/05/21 History cyanocobalamin (vitamin B-12) 0 mcg PO DAILY 05/05/21 05/05/21 History 1,000 mcg tablet (Vitamin B-12) lisinopril 20 mg tablet 20 mg PO DAILY 05/05/21 05/05/21 History omeprazole 20 mg capsule,delayed 20 mg PO DAILY 05/05/21 05/05/21 History release potassium chloride 10 mEq 10 meq PO BID 05/05/21 05/05/21 History capsule,extended release rosuvastatin 40 mg tablet 20 mg PO DAILY 05/05/21 05/05/21 History Oxygen Home #1 ea 05/09/21 Rx azithromycin 250 mg tablet 250 mg PO DAILY #1 tab 05/09/21 Rx dexamethasone sodium phos (PF) 10 6 mg (0.6 mL) IV DAILY #3 mL 05/09/21 Rx mg/mL injection syringe guaifenesin 600 mg tablet, 1,200 mg PO Q12 #60 tabs 05/09/21 Rx extended release 12 hr (Mucinex) tamsulosin 0.4 mg capsule 0.4 mg PO HS #30 caps 05/09/21 Rx zinc sulfate 50 mg zinc (220 mg) 220 mg PO QAM #30 caps 05/09/21 Rx capsule (Orazinc) Patient History Medical History Depression Diabetes mellitus GERD (gastroesophageal reflux disease) Hyperlipidemia Hypertension Muscle spasm Obesity (BMI 30-39.9) Vitamin B12 deficiency Social History Smoking Status: Former smoker Second Hand Exposure: No; Hx Alcohol Use: No Hx Substance Use: No Preferred Language: Cypriot Communication Ability: Effective Client Services Vice President Required: No Beliefs That Will Affect Care: None marital status: / Current Living Situation: Alone and Family Current Living Situation Comment: Daughter How many Children do You have: 4 Feels Safe at Home: Yes Safety Concerns: Feels Safe At This Time Assistive Devices: Cane Review of Systems Review of Systems: All systems reviewed & are unremarkable except as noted in HPI & below Physical Exam Constitutional: WD/WN, vitals as above + obese, cooperative and comfortable; no acute distress and not ill appearing Neck: normal visual inspection and trachea midline Respiratory: normal respiratory effort, lungs clear to auscultation Cardiovascular: Rate/Rhythm: regular rate and regular rhythm Heart Sounds: normal S1, normal S2 and + murmur (systolic murmur) Gastrointestinal (Abdomen): Inspection/Auscultation: abdomen normal to inspection; abdomen not distended Percussion/Palpation: + abdomen tender (very mild tenderness in lower abdomen bilaterally) and abdomen soft; no guarding and abdomen not rigid diastasis recti present Skin: no rashes, warm and dry no jaundice Psychiatric: A+Ox3, euthymic affect Results & Data ([facility]) Vital Signs (Past 12 Hours) Vital Signs Temp Pulse Pulse Resp BP Pulse Ox O2 Del Method 01/23/22 11:32 36.7 C 51 L 19 168/78 H 97 Room Air 01/23/22 10:47 Room Air, CPAP 01/23/22 08:27 36.5 C 50 L 20 150/82 H 94 Room Air 01/23/22 06:02 52 L 01/23/22 06:25 36.8 C 59 L 18 144/77 H 96 Room Air 01/23/22 03:00 36.5 C 54 L 18 134/69 94 Room Air Laboratory Results 01/23/22 01/23/22 01/23/22 Range/Units 06:25 06:25 06:25 WBC 7.45 (4.8-10.8) K/ul RBC 4.61 L (4.63-6.08) M/uL Hgb 13.8 L (14.0-18.0) g/dl Hct 41.5 (40.1-51.0) % MCV 90.0 (80.0-100.0) fL MCH 29.9 (25.0-34.0) pg MCHC 33.3 (32.0-36.0) g/dL RDW Std Deviation 44.1 (36.4-46.3) fL RDW Coeff of Venancio 13.5 (11.5-14.5) % Plt Count 177 (130-400) K/uL MPV 11.5 (9.4-12.4) fL Immature Gran % (Auto) 0.4 % Neut % (Auto) 73.9 % Lymph % (Auto) 11.0 % [place] % (Auto) 12.1 % Eos % (Auto) 2.3 % Baso % (Auto) 0.3 % Neut # (Auto) 5.51 (1.4-6.5) K/uL Lymph # (Auto) 0.82 L (1.2-3.4) K/uL [place] # (Auto) 0.90 H (0.24-0.82) K/uL Eos # (Auto) 0.17 (0-0.50) K/uL Baso # (Auto) 0.02 (0-0.2) K/uL Immature Gran # (Auto) 0.03 H (0.00-0.02) K/uL PT (9.0-12.0) Seconds INR (0.9-1.1) APTT (21.0-31.0) Seconds PTT Ratio Sodium 141 (136-145) mmol/L Potassium 4.1 (3.5-5.1) mmol/L Chloride 105 (98-107) mmol/L Carbon Dioxide 31 (21-32) mmol/L Anion Gap 5 (3-11) BUN 21 (6-23) mg/dl Creatinine 1.19 (0.6-1.4) mg/dl Est Cr Clr Drug Dosing 56.4 ml/min Est GFR ( Amer) 66.0 ml/min Est GFR (Non-Af Amer) 56.9 ml/min BUN/Creatinine Ratio 17.6 (10-20) Glucose 107 H (70-99(Fasting)) mg/dl Estimat Average Glucose 128 mg/dl Hemoglobin A1c 6.1 H (4.5-5.6) % Calcium 9.4 (8.5-10.1) mg/dl Total Bilirubin (0.2-1.0) mg/dl AST (13-39) U/L ALT (7-52) U/L Alkaline Phosphatase (34-104) U/L Total Protein (6.0-8.3) gm/dl Albumin (3.4-5.0) gm/dl Globulin (2.5-4.0) gm/dl Albumin/Globulin Ratio (0.9-2) Triglycerides 174 H (0-150) mg/dl Cholesterol 139 (0-200) mg/dl LDL Cholesterol, Calc 60 mg/dl VLDL Cholesterol, Calc 35 H (0-30) mg/dl HDL Cholesterol 44 mg/dl Cholesterol/HDL Ratio 3.2 (0-5) SARS-CoV-2, RNA, NAAT (NEGATIVE) 01/22/22 01/22/22 01/22/22 Range/Units 20:00 17:37 17:37 WBC (4.8-10.8) K/ul RBC (4.63-6.08) M/uL Hgb (14.0-18.0) g/dl Hct (40.1-51.0) % MCV (80.0-100.0) fL MCH (25.0-34.0) pg MCHC (32.0-36.0) g/dL RDW Std Deviation (36.4-46.3) fL RDW Coeff of Venancio (11.5-14.5) % Plt Count (130-400) K/uL MPV (9.4-12.4) fL Immature Gran % (Auto) % Neut % (Auto) % Lymph % (Auto) % [place] % (Auto) % Eos % (Auto) % Baso % (Auto) % Neut # (Auto) (1.4-6.5) K/uL Lymph # (Auto) (1.2-3.4) K/uL [place] # (Auto) (0.24-0.82) K/uL Eos # (Auto) (0-0.50) K/uL Baso # (Auto) (0-0.2) K/uL Immature Gran # (Auto) (0.00-0.02) K/uL PT 10.8 (9.0-12.0) Seconds INR 1.0 (0.9-1.1) APTT 25.6 (21.0-31.0) Seconds PTT Ratio 0.9 Sodium 139 (136-145) mmol/L Potassium 3.8 (3.5-5.1) mmol/L Chloride 104 (98-107) mmol/L Carbon Dioxide 28 (21-32) mmol/L Anion Gap 7 (3-11) BUN 24 H (6-23) mg/dl Creatinine 1.18 (0.6-1.4) mg/dl Est Cr Clr Drug Dosing 56.6 ml/min Est GFR ( Amer) 66.7 ml/min Est GFR (Non-Af Amer) 57.5 ml/min BUN/Creatinine Ratio 20.3 H (10-20) Glucose 105 H (70-99(Fasting)) mg/dl Estimat Average Glucose mg/dl Hemoglobin A1c (4.5-5.6) % Calcium 9.2 (8.5-10.1) mg/dl Total Bilirubin 0.8 (0.2-1.0) mg/dl AST 22 (13-39) U/L ALT 16 (7-52) U/L Alkaline Phosphatase 85 (34-104) U/L Total Protein 7.0 (6.0-8.3) gm/dl Albumin 4.1 (3.4-5.0) gm/dl Globulin 2.9 (2.5-4.0) gm/dl Albumin/Globulin Ratio 1.4 (0.9-2) Triglycerides (0-150) mg/dl Cholesterol (0-200) mg/dl LDL Cholesterol, Calc mg/dl VLDL Cholesterol, Calc (0-30) mg/dl HDL Cholesterol mg/dl Cholesterol/HDL Ratio (0-5) SARS-CoV-2, RNA, NAAT NEGATIVE (NEGATIVE) 01/22/22 Range/Units 17:37 WBC 5.09 (4.8-10.8) K/ul RBC 4.32 L (4.63-6.08) M/uL Hgb 13.2 L (14.0-18.0) g/dl Hct 39.0 L (40.1-51.0) % MCV 90.3 (80.0-100.0) fL MCH 30.6 (25.0-34.0) pg MCHC 33.8 (32.0-36.0) g/dL RDW Std Deviation 44.2 (36.4-46.3) fL RDW Coeff of Venancio 13.3 (11.5-14.5) % Plt Count 149 (130-400) K/uL MPV 11.3 (9.4-12.4) fL Immature Gran % (Auto) 0.6 % Neut % (Auto) 71.0 % Lymph % (Auto) 14.1 % [place] % (Auto) 11.2 % Eos % (Auto) 3.1 % Baso % (Auto) 0.0 % Neut # (Auto) 3.61 (1.4-6.5) K/uL Lymph # (Auto) 0.72 L (1.2-3.4) K/uL [place] # (Auto) 0.57 (0.24-0.82) K/uL Eos # (Auto) 0.16 (0-0.50) K/uL Baso # (Auto) 0.00 (0-0.2) K/uL Immature Gran # (Auto) 0.03 H (0.00-0.02) K/uL PT (9.0-12.0) Seconds INR (0.9-1.1) APTT (21.0-31.0) Seconds PTT Ratio Sodium (136-145) mmol/L Potassium (3.5-5.1) mmol/L Chloride (98-107) mmol/L Carbon Dioxide (21-32) mmol/L Anion Gap (3-11) BUN (6-23) mg/dl Creatinine (0.6-1.4) mg/dl Est Cr Clr Drug Dosing ml/min Est GFR ( Amer) ml/min Est GFR (Non-Af Amer) ml/min BUN/Creatinine Ratio (10-20) Glucose (70-99(Fasting)) mg/dl Estimat Average Glucose mg/dl Hemoglobin A1c (4.5-5.6) % Calcium (8.5-10.1) mg/dl Total Bilirubin (0.2-1.0) mg/dl AST (13-39) U/L ALT (7-52) U/L Alkaline Phosphatase (34-104) U/L Total Protein (6.0-8.3) gm/dl Albumin (3.4-5.0) gm/dl Globulin (2.5-4.0) gm/dl Albumin/Globulin Ratio (0.9-2) Triglycerides (0-150) mg/dl Cholesterol (0-200) mg/dl LDL Cholesterol, Calc mg/dl VLDL Cholesterol, Calc (0-30) mg/dl HDL Cholesterol mg/dl Cholesterol/HDL Ratio (0-5) SARS-CoV-2, RNA, NAAT (NEGATIVE) Diagnostic Findings CT SCAN OF THE CHEST, ABDOMEN, AND PELVIS WITH IV CONTRAST CLINICAL HISTORY: Syncope. Dizziness. Back pain. COMPARISON STUDY: Chest CT dated 05/05/2021. TECHNIQUE: Following the IV administration of 190 of Optiray 320, CT scan of the chest, abdomen, and pelvis was performed from the thoracic inlet to the proximal femora. Images are reviewed in the axial, sagittal, and coronal planes. IV contrast was administered without complication. A dose lowering technique was utilized adhering to the principles of ALARA. The examination is degraded by streak artifact from the arms which could not be related above the chest or abdomen. FINDINGS: CHEST: Thyroid: Imaged portions of the thyroid gland are normal in size and attenuation. Thoracic aorta: There is atherosclerotic calcification of the thoracic aorta, which is normal in caliber and demonstrates standard 3-vessel arch anatomy. No dissection is seen. Pulmonary vasculature: The pulmonary trunk is normal in caliber. There are no filling defects identified in the central pulmonary vessels to indicate pulmonary embolus. Note that this examination was not protocoled for evaluation of the pulmonary arteries. Heart: The heart is mildly enlarged and without pericardial effusion. The coronary arteries and aortic valve leaflets are densely calcified. Lungs and pleural spaces: Subpleural parenchymal scarring is seen throughout both lungs, greatest at the lung bases. There is no airspace consolidation typical for pneumonia or pleural effusion. The trachea and central airways are clear. No pneumothorax is identified. There are punctate calcified granulomas. Mediastinum: There is no mediastinal hematoma or lymphadenopathy. Radha: Clear. Axillae: There is no axillary lymphadenopathy. Bony thorax: The skeletal structures are osteopenic. The bony thorax appears intact. No lytic or blastic lesions are identified. Soft tissues: Mild soft tissue contusion is suggested in the right mid back on image #217. ABDOMEN AND PELVIS: Liver: The contrast-enhanced liver is normal in size, contour, and attenuation. There is no intrahepatic biliary ductal dilatation. Pneumobilia is noted in the left lobe. The hepatic veins and portal veins are patent. Gallbladder: There is a large calcified gallstone. 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 There is mild associated pericholecystic infiltration. Spleen: Normal in size and attenuation. Pancreas: Atrophic and grossly unremarkable. Adrenal glands: Unremarkable. Kidneys: The contrast enhanced kidneys demonstrate mild cortical atrophy and are without hydronephrosis. The kidneys enhance symmetrically. There are least 2 nonobstructing left renal calculi measuring up to 3 mm. Small bilateral renal cysts measure up to 2.1 cm. Additional subcentimeter cortical hypodensities also likely represent cysts but are too small for definitive characterization. Abdominal vasculature: The abdominal aorta is normal in course and caliber noting advanced atherosclerotic calcification. Stomach and bowel: There is a tiny hiatal hernia. There is moderate to advanced colonic diverticulosis without CT evidence of acute diverticulitis. No bowel obstruction is seen. Duodenal diverticula are noted. The appendix is well- visualized and normal. Peritoneum: There is no intraperitoneal free air or abdominal ascites. Lymphadenopathy: None. Pelvic viscera: The prostate gland is mildly enlarged and heterogeneous. The bladder wall appears thickened and trabeculated indicating chronic outlet obstruction. There are small bilateral fat-containing inguinal hernias. Skeletal structures: The skeletal structures are osteopenic. The lumbosacral spine, bony pelvis, and proximal femora appear intact. There is mild lumbosacral spondylosis. No lytic or blastic lesions are seen. Soft tissues: Mild contusion is suggested in the lower back on image #2011. IMPRESSION: 1. Parenchymal scarring is seen throughout both lungs with no airspace consolidation, pleural effusion, or pneumothorax. 2. Mild soft tissue contusions are suggested in the soft tissues of the mid to lower back as above. Clinical correlation will be required. 3. There is no evidence of solid organ injury in the abdomen or pelvis. 4. There is cholelithiasis with evidence of a fistula between the gallbladder and the right colon. Pneumobilia in the left lobe of the liver may be related, and there is mild pericholecystic infiltration. Surgical follow-up is advised. 5. Mild cardiomegaly. 6. No fracture is seen. 7. Advanced colonic diverticulosis without CT evidence of acute diverticulitis. 8. Left-sided nephrolithiasis. 9. Additional findings as above.
--- NOTE | 2022-01-23 17:05 | Electrocardiogram Report ---
Test Reason : Blood Pressure : / mmHG Vent. Rate : 055 BPM Atrial Rate : 055 BPM P-R Int : 160 ms QRS Dur : 088 ms QT Int : 446 ms P-R-T Axes : 042 -16 021 degrees QTc Int : 426 ms Sinus bradycardia Otherwise normal ECG When compared with ECG of 05-MAY-2021 16:45, No significant change was found Confirmed by Ricki Aguilar ([id number]) on 01/23/2022 5:05:29 PM Referred By: REFERRED SELF Confirmed By:Ricki Aguilar
[2022-01-23] MEDS: MECLIZINE HCL 25 MG TAB PO SCH (20:03)
[2022-01-23] MEDS: TAMSULOSIN HCL 0.4 MG CAP PO SCH (20:28)
[2022-01-24 06:31] LABS: Basophils # (auto) 0.01 K/uL (0-0.2); Basophils % (auto) 0.2 %; Eosinophils # (auto) 0.18 K/uL (0-0.50); Eosinophils % (auto) 3.4 %; Hematocrit (blood only) 36.6 % (40.1-51.0); Hemoglobin 12.1 g/dl (14.0-18.0); Immature Granulocytes # (auto) 0.02 K/uL (0.00-0.02); Immature Granulocytes % (auto) 0.4 %; Lymphocytes # (auto) 0.81 K/uL (1.2-3.4); Lymphocytes % (auto) 15.3 %; Mean Corpuscular Hemoglobin 29.7 pg (25.0-34.0); Mean Corpuscular Hgb Conc 33.1 g/dL (32.0-36.0); Mean Corpuscular Volume 89.9 fL (80.0-100.0); Mean Platelet Volume 11.4 fL (9.4-12.4); Monocytes # (auto) 0.72 K/uL (0.24-0.82); Monocytes % (auto) 13.6 %; Neutrophils # (auto) 3.54 K/uL (1.4-6.5); Neutrophils % (auto) 67.1 %; Platelet Count 146 K/uL (130-400); RDW Coefficient of Variation 13.6 % (11.5-14.5); RDW Standard Deviation 44.9 fL (36.4-46.3); Red Blood Count 4.07 M/uL (4.63-6.08); White Blood Count 5.28 K/ul (4.8-10.8)
[2022-01-24 06:49] LABS: BUN Creatinine Ratio 17.3 (10-20); Creatinine Clr Calc Pharmacy 42.9 ml/min; Est GFR (African American) 47.6 ml/min; Potassium 3.8 mmol/L (3.5-5.1)
[2022-01-24] MEDS: POTASSIUM CHLORIDE 10 MEQ TABCR PO SCH (08:26)
[2022-01-24] MEDS: ASPIRIN 81 MG ECTAB PO SCH (08:27)
[2022-01-24] MEDS: CYANOCOBALAMIN (B-12) 500 MCG TABLET PO SCH (08:27)
[2022-01-24] MEDS: PANTOprazole 40 MG TAB PO SCH (08:27)
[2022-01-24] MEDS: CITALOPRAM 20 MG TAB PO SCH (08:27)
[2022-01-24] MEDS: ROSUVASTATIN CALCIUM 20 MG TAB PO SCH (08:27)
[2022-01-24] MEDS: ZINC SULFATE 220 MG CAPSULE PO SCH (08:27)
[2022-01-24] MEDS: MECLIZINE HCL 25 MG TAB PO SCH ×2 (08:28→21:22)
[2022-01-24] MEDS: amLODIPine BESYLATE 5 MG TAB PO SCH (08:36)
[2022-01-24] MEDS: carvediloL 3.125 MG TAB PO SCH (08:59)
[2022-01-24] MEDS: SODIUM CHLORIDE 0.9% 1000ML 1,000 ML IV SCH ×2 (08:59→21:22)
--- NOTE | 2022-01-24 10:36 | Hospitalist Progress Note ---
Date of Service January 24, 2022 Assessment & Plan (1) TARSHA (acute kidney injury): Plan: Creatinine 01/23 - 1.1 Creatinine today - 1.5 2nd to IV contrast? other? HOLD lisinopril Start NS at 80cc/hr x 2 liters repeat BMP am (2) Bradycardia: Plan: HOLD coreg allow HR to rise check a TSH to be complete follow on tele thus far no AV block or pauses (3) Near syncope: Plan: Present on admission. Not true vertigo, but also not orthostasis (set of orthostatics were normal yesterday). Has responded nicely to antivert - symptoms much better. Cont antivert 25gm qam, add 12.5mg in the afternoon, and 25mg in the evening. Await PT vestibular evaluation. MRI brain neg for CVA. CTA head/neck negative. Echo with mod-severe but unlikely to be contributing to current symptoms. (4) Aortic stenosis: Plan: mod-severe. avoid excessive afterload reduction. no evidence of CHF, a.fib, etc attributable to the . (5) Fistula of gallbladder: Plan: Chronic. No acute Rx needed. Was to have intervention on this tomorrow at [facility] by Dr Cruz. I notified Dr Cruz that the patient would remain hospitalized here until tomorrow because of #1. Procedures at [facility] for tomorrow thus canceled. (6) Hypertension: Plan: Continue amlodipine but HOLD lisinopril due to TARSHA and HOLD carvedilol due to bradycardia. BPs stable. (7) Hyperlipidemia: Plan: Continue rosuvastatin. (8) Depression: Plan: Continue citalopram 20 mg daily. (9) GERD (gastroesophageal reflux disease): Plan: Continue PPI. (10) Vitamin B12 deficiency: Plan: Continue B12 supplementation per home dosing. (11) BPH (benign prostatic hyperplasia): Plan: Cont flomax Plan change observation to full admission status due to TARSHA hydrate and repeat BMP in am left message for pt's daughter on her voicemail this evening Admission and Anticipated Discharge Date Admission Date: January 22, 2022 Subjective patient states that his dizziness is improved he can now stand and ambulate a bit better than yesterday he realizes he needs to use a walker denies true vertigo, but movements of his head makes the dizziness worse no lightheadedness eating well tele overnight with sinus bradycardia - no pauses, no AV block patient agrees that trying to d/c home today, prep for outpatient colonoscopy (scheduled for tomorrow in [place]), etc is not possible he feels good about staying hospitalized and canceling the procedures for tomorrow Review of Systems Review of Systems: gen - no fevers cv - no cp, no orthopnea pulm - no cough or dyspnea GI - no nausea or emesis Physical Exam Physical Exam: gen - NAD, pleasant eyes - PERRL; no nystagmus; EOMI neuro - finger/nose/finger with intention tremor but no ataxia b/l neck - no JVD heart - 2-3/6 holosystolic murmur RUSB, ford, RR, s1 s2 lungs - CTA b/l abd - soft NT ND BS+ ext - no edema, pulses 2+ b/l Results & Data Results & Data ([facility]) Vital Signs (Past 12 Hours) Vital Signs Temp Pulse Pulse Resp BP Pulse Ox O2 Del Method 01/24/22 07:38 35.9 C L 51 L 16 125/78 98 BiPAP 01/24/22 06:13 49 L 01/24/22 03:00 36.5 C 55 L 18 146/76 H 97 CPAP 01/23/22 23:07 36.5 C 47 L 18 108/60 97 Room Air 01/23/22 22:50 51 L Laboratory Results Laboratory Results - last 24 hr 01/24/22 01/24/22 06:16 06:16 WBC 5.28 RBC 4.07 L Hgb 12.1 L Hct 36.6 L MCV 89.9 MCH 29.7 MCHC 33.1 RDW Std Deviation 44.9 RDW Coeff of Venancio 13.6 Plt Count 146 MPV 11.4 Immature Gran % (Auto) 0.4 Neut % (Auto) 67.1 Lymph % (Auto) 15.3 [place] % (Auto) 13.6 Eos % (Auto) 3.4 Baso % (Auto) 0.2 Neut # (Auto) 3.54 Lymph # (Auto) 0.81 L [place] # (Auto) 0.72 Eos # (Auto) 0.18 Baso # (Auto) 0.01 Immature Gran # (Auto) 0.02 Sodium 138 Potassium 3.8 Chloride 104 Carbon Dioxide 30 Anion Gap 4 BUN 27 H Creatinine 1.56 H D Est Cr Clr Drug Dosing 42.9 Est GFR ( Amer) 47.6 Est GFR (Non-Af Amer) 41.0 BUN/Creatinine Ratio 17.3 Glucose 114 H Calcium 9.0 PG Care Time/CCT Total # of Minutes Spent Total Time Spent with Patient: Total time spent is greater than 50% in coordination of care (as documented) at patient's floor/unit and/or counseling patient: Coding Level of Care Code 47668 Subseq Hosp Care Lvl 3 Diagnoses TARSHA (acute kidney injury) N17.9 Bradycardia R00.1 Near syncope R55 Aortic stenosis I35.0 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 BPH (benign prostatic hyperplasia) N40.0
[2022-01-24] MEDS ORDERED: MECLIZINE 12.5 MG TAB PO SCH (16:00)
[2022-01-24] MEDS: TAMSULOSIN HCL 0.4 MG CAP PO SCH (21:22)
[2022-01-25 07:03] LABS: BUN Creatinine Ratio 19.3 (10-20); Calcium 8.4 mg/dl (8.5-10.1); Creatinine Clr Calc Pharmacy 49.6 ml/min; Est GFR (African American) 56.7 ml/min; Est GFR (Non-African American) 48.9 ml/min; Magnesium 1.8 mg/dl (1.7-2.4); Potassium 3.7 mmol/L (3.5-5.1)
[2022-01-25] MEDS: amLODIPine BESYLATE 5 MG TAB PO SCH (08:14)
[2022-01-25] MEDS: POTASSIUM CHLORIDE 10 MEQ TABCR PO SCH (08:15)
[2022-01-25] MEDS: ROSUVASTATIN CALCIUM 20 MG TAB PO SCH (08:15)
[2022-01-25] MEDS: CITALOPRAM 20 MG TAB PO SCH (08:15)
[2022-01-25] MEDS: PANTOprazole 40 MG TAB PO SCH (08:15)
[2022-01-25] MEDS: ZINC SULFATE 220 MG CAPSULE PO SCH (08:15)
[2022-01-25] MEDS: ASPIRIN 81 MG ECTAB PO SCH (08:15)
[2022-01-25] MEDS: CYANOCOBALAMIN (B-12) 500 MCG TABLET PO SCH (08:16)
[2022-01-25] MEDS: MECLIZINE HCL 25 MG TAB PO SCH (08:16)
--- NOTE | 2022-01-25 12:48 | Discharge Summary ---
Date of Service January 25, 2022 Admission HPI Per Admitting Provider Bradley Castillo is an 81-year-old male with past medical history significant for hyperlipidemia, hypertension, aortic stenosis, depression, vitamin B12 deficiency, Villeda's palsy, and GERD who presents today after a fall at home. Patient was standing up with his right foot on a chair in order to tie his shoe. As he was leaning over, he suddenly felt dizzy and lightheaded, but also describes a sense of feeling heavy in his head and suddenly fell backward, hitting his back against a filing cabinet and glass. He did not hit his head or lose consciousness during the episode, he did suffer a laceration on his back b ut denies any other injuries. Patient states he often feels lightheaded and dizzy with sudden movements and has been told it may be due to elevated blood pressure or related to fluid pressure in his inner ear. The heaviness in his head had him concerned for stroke, therefore he presented to the ED for further evaluation. Patient does not have any focal neurological deficits, other than a left-sided facial droop, left-sided eye droop, and occasional drooling which is residual from Villeda's palsy several years ago, he is confident it is unchanged today. He denies chest pain, palpitations, shortness of breath prior to the fall. He has been eating and drinking well, without fever/chills, weakness, fatigue, abdominal pain, nausea, vomiting. Of note, patient does receive all his care through the [facility], therefore medical records are not available. In ED, patient is hypertensive, otherwise vital signs within normal limits. Labs largely unremarkable. Head CT without hemorrhage, mass effect, or evidence of acute territorial ischemia. Head/neck CTA with mild stenosis of R vertebral artery. Chest CT with mild cardiomegaly, b/l parenchymal lung scarring. 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 Pneumobilia in the left lobe of the liver may be related, and there is mild pericholecystic infiltration. Advanced colonic diverticulosis without CT evidence of acute diverticulitis. Left-sided nephrolithiasis. Discharge Exam gen - NAD, pleasant eyes - PERRL; no nystagmus; EOMI neuro - finger/nose/finger with intention tremor but no ataxia b/l neck - no JVD heart - 2-3/6 holosystolic murmur RUSB, ford, RR, s1 s2 lungs - CTA b/l abd - soft NT ND BS+ ext - no edema, pulses 2+ b/l Discharge Data Allergies Allergy/AdvReac Type Severity Reaction Status Date / Time atorvastatin [From Lipitor] Allergy Unknown Verified 05/06/21 02:44 Consultations 01/22/22 19:40 ED Decision to Admit Stat 01/22/22 22:39 Consult General Surgery Routine Ordered Studies 01/22/22 17:13 CT abd pelvis IV con only Stat CT angio head wo/w Stat CT angio neck with con Stat CT chest diagnostic w con Stat 01/23/22 00:04 MR brain wo con Routine Hospital Course (1) TARSHA (acute kidney injury): Creatinine 01/23 - 1.1 Creatinine today - 1.5 2nd to IV contrast? other? HOLD lisinopril Start NS at 80cc/hr x 2 liters repeat BMP am (2) Bradycardia: HOLD coreg allow HR to rise check a TSH to be complete follow on tele thus far no AV block or pauses (3) Near syncope: Present on admission. Not true vertigo, but also not orthostasis (set of orthostatics were normal yesterday). Has responded nicely to antivert - symptoms much better. Cont antivert 25gm qam, add 12.5mg in the afternoon, and 25mg in the evening. Await PT vestibular evaluation. MRI brain neg for CVA. CTA head/neck negative. Echo with mod-severe but unlikely to be contributing to current symptoms. (4) Aortic stenosis: mod-severe. avoid excessive afterload reduction. no evidence of CHF, a.fib, etc attributable to the . (5) Fistula of gallbladder: Chronic. No acute Rx needed. Was to have intervention on this tomorrow at [facility] by Dr Cruz. I notified Dr Cruz that the patient would remain hospitalized here until tomorrow because of #1. Procedures at [facility] for tomorrow thus canceled. (6) Hypertension: Continue amlodipine but HOLD lisinopril due to ATRSHA and HOLD carvedilol due to bradycardia. BPs stable. (7) Hyperlipidemia: Continue rosuvastatin. (8) Depression: Continue citalopram 20 mg daily. (9) GERD (gastroesophageal reflux disease): Continue PPI. (10) Vitamin B12 deficiency: Continue B12 supplementation per home dosing. (11) BPH (benign prostatic hyperplasia): Cont flomax Plan change observation to full admission status due to TARSHA hydrate and repeat BMP in am left message for pt's daughter on her voicemail this evening Home Health Attestation I certify that this patient is under my care and that I, or a physicians staff physical therapy assistant working with me, had a face to-face encounter that meets the home health [id number] encounter requirements with this patient. The encounter with the patient was in whole, or in part, for the following medical condition, which is the primary reason for home health care (list medical condition): Syncope I certify that, based on my findings, the following services are medically necessary home health services: My clinical findings support the need for the above services because: OT Assess ADL Status and Restore Function w ADLs PT Assessment for Endurance / Balance / Strength PT Eval for Safety and Mobility PT Eval for Safety, Gait Training, Assistive Devices PT Gait and Balance Training, Strengthening and Safety Further, I certify that my clinical findings support that this patient is homebound (i.e. absences from home require considerable and taxing effort and are for medical reasons or sabianism services or infrequently or of short duration when for other reasons) because: Transportation Assistance/Unable to Leave Home Unassisted Certification for Home Health Services: Based on the above findings, I certify that this patient is confined to the home and needs intermittent longterm care, physical therapy and/or speech therapy or continues to need occupational therapy. The patient is under my care, and I have initiated the establishment of the plan of care. This patient will be followed by a physician who will periodically review the plan of care. Discharge Plan Discharge Items Patient Disposition: Home - Home Health Services Reason For Visit: Dizziness Discharge Diagnosis: 1. dizziness - likely due to vertigo from the inner ear 2. aortic stenosis 3. known fistula between the gall bladder and colon Condition on Discharge: Good Activity: As commented below Activity Comment: gradually increase activities as tolerated over the next 5 days Driving/Machine Use: no driving while having dizziness/vertigo Non-emergency contact: Primary Care Provider and Manager [employer] Call non-emergency contact if: you have any medication questions and your symptoms worsen Follow-up/Referrals: [facility] [Outside] (see within 5 days ) Nida Cruz MD [Physician] - (please contact Dr Cruz's office to reschedule colonoscopy and procedure on the gall bladder fistula (to be done at [facility]) ) Diet: Heart Healthy Addtl Attending Provider Instructions: Mr Castillo, You were hospitalized at [facility] for severe dizziness/unsteadiness/heavy head feeling which led to a fall at home. We performed a series of tests including CT scans of the arteries of the head/neck, echocardiogram, and MRI brain. The CT scans of the blood vessels showed that you have good blood flow through the neck and into the head. The MRI of the brain did NOT show a stroke as the cause of your dizziness. The echocardiogram showed that you have "stenosis" of the aortic valve (moderate-severe disease). You responded quickly to meclizine medication which is used to treat vertigo. Most cases of vertigo/dizziness come from the inner ear. Please see handout on "Vertigo." You were seen by physical & occupational therapy. Both felt that you could return home but they recommended home PT/OT as well as use of a rolling walker. We noticed during your stay that your heart rate was slow - likely due to your carvedilol medication. At times your blood pressure was also on the low side of normal. The low blood pressure also could have contributed to your dizziness at home. Recommendations - 1. Meclizine ("the dizzy pill") - take as follows - * meclizine 12.5mg THREE TIMES DAILY scheduled x 3 days (take every morning, every afternoon, and each night at bedtime) * after 3 days then use NEEDED only -- for any ongoing dizziness/vertigo feeling * your symptoms will likely resolve over the next week or so 2. STOP the following blood pressure medication - * carvedilol * lisinopril 3. CONTINUE your amlodipine blood pressure medication - 5mg by mouth daily - as previous. 4. Driving - NO driving a car until your dizziness/vertigo is completely gone AND you are no longer taking the meclizine. 5. Use a rolling walker at home and when you leave your home as well. This will help with your walking. 6. Aortic stenosis - [facility] 6-12 months to monitor the valve. As the valve becomes more severely diseased this will ultimately lead to a need for surgery. 7. If your dizziness/vertigo persists you would need to see ENT ([id number]) for further testing. We have several ENT doctors in [place] through [facility]. Most cases of dizziness/vertigo last about 7-10 days then resolve. 8. Again please call [facility] (Dr Nida Cruz) to reschedule your outpatient colonoscopy and fistula procedure. Follow-up - see separate section Return to [facility] if - * you have fevers over 100 degrees * you have changes in your vision * you have significant changes in your balance * you develop nausea/vomiting in conjunction with your vertigo/dizziness * any other concerns It was our pleasure to care for you at [facility]! Continue to feel better, Dr Crowell Pending Studies at Discharge: No Stand-Alone Forms: My [facility], Smoking Cessation Medications and DC Order Prescriptions: New meclizine 12.5 mg tablet 12.5 mg PO TID PRN (Reason: dizziness) Qty: 20 0RF Continued potassium chloride 10 mEq Capsule, Extended Release 10 meq PO BID acetaminophen [Tylenol] 325 mg Tablet 650 mg PO DIRECTED PRN (Reason: FEVER/PAIN) aspirin 81 mg Tablet,Delayed Release (Dr/Ec) 81 mg PO DAILY citalopram [Celexa] 20 mg Tablet 20 mg PO DAILY omeprazole 20 mg Capsule,Delayed Release(Dr/Ec) 20 mg PO DAILY cholecalciferol (vitamin D3) [Vitamin D3] 25 mcg (1,000 unit) Capsule 0 mcg PO DAILY Rx Instructions: PT'S DAUGHTER DID NOT KNOW STRENGTH. rosuvastatin 40 mg Tablet 20 mg PO DAILY Lactobacillus acidoph-L.bulgar 1 million cell tablet 1 tab PO DAILY Rx Instructions: STARTED 05/04/21 FOR 10 DAYS. baclofen 5 mg tablet 5 mg PO TID PRN (Reason: Hiccups) zinc sulfate [Orazinc] 50 mg zinc (220 mg) Capsule 220 mg PO QAM Qty: 30 0RF guaifenesin [Mucinex] 600 mg Tablet Extended Release 12hr 1,200 mg PO Q12 Qty: 60 0RF Changed amlodipine 5 mg tablet 5 mg PO DAILY Qty: 30 0RF cyanocobalamin (vitamin B-12) [Vitamin B-12] 1,000 mcg Tablet 1,000 mcg PO DAILY Qty: 30 0RF Rx Instructions: PT'S DAUGHTER DID NOT KNOW STRENGTH. Discontinued lisinopril 20 mg tablet 20 mg PO DAILY carvedilol 3.125 mg Tablet 3.125 mg PO BID tamsulosin 0.4 mg Capsule 0.4 mg PO HS Qty: 30 0RF (DME) Oxygen Home Liters Per Minute See Rx Instructions .ROUTE Qty: 1 0RF Rx Instructions: As directed, 6 Liters NC continuous dexamethasone sodium phos (PF) 10 mg/mL syringe 6 mg IV DAILY Qty: 3 0RF azithromycin 250 mg tablet 250 mg PO DAILY Qty: 1 0RF Rx Instructions: start on day 2 of therapy Discharge Orders: Discharge Order (Routine); Ordered 01/25/22 Ordered By: Luis Fernando Botello/Other Patient Handouts: Prediabetes, Aortic Stenosis, ED Vertigo, Unspecified Admission Data Admit Date/Time: 01/24/22 10:32 Attending Provider: Luis Fernando Crowell Admit Provider: Anshul Fung Primary Care Provider: PCP,NO Other Providers: Anshul Fung ; Fransico Rosenberg ; [facility] ; [place] Care Coding Diagnoses TARSHA (acute kidney injury) N17.9 Bradycardia R00.1 Near syncope R55 Aortic stenosis I35.0 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 BPH (benign prostatic hyperplasia) N40.0
== END 2022-01-25 15:24 | disposition home health service (06) | DRG 312 ==
LOC: ED 16:55 → 2N 16:55 → SUATTDRO 21:21 → 2N 22:19

== ENCOUNTER 2023-05-16 21:48 | Observation (INO) ==
[2023-05-16 22:50] LABS: Basophils # (auto) 0.02 K/uL (0.00-0.20); Basophils % (auto) 0.4 %; Eosinophils # (auto) 0.29 K/uL (0.00-0.50); Eosinophils % (auto) 5.2 %; Hemoglobin 12.5 g/dl (14.0-18.0); Immature Granulocytes # (auto) 0.04 K/uL (0.01-0.20); Immature Granulocytes % (auto) 0.7 %; Lymphocytes # (auto) 0.98 K/uL (1.20-3.40); Lymphocytes % (auto) 17.6 %; Mean Corpuscular Hemoglobin 31.1 pg (25.0-34.0); Mean Corpuscular Hgb Conc 33.8 g/dL (32.0-36.0); Monocytes # (auto) 0.56 K/uL (0.11-0.59); Monocytes % (auto) 10.1 %; Neutrophils # (auto) 3.67 K/uL (1.40-6.50); Platelet Count 159 K/uL (130-400); RDW Coefficient of Variation 13.2 % (11.5-14.5); RDW Standard Deviation 44.7 fL (36.4-46.3); Red Blood Count 4.02 M/uL (4.70-6.10); White Blood Count 5.56 K/ul (4.8-10.8)
[2023-05-16 23:07] LABS: Albumin Globulin Ratio 1.6 (0.9-2); Albumin Level 4.2 gm/dl (3.4-5.0); Bilirubin,Total 0.5 mg/dl (0.2-1.0); Calcium 9.5 mg/dl (8.6-10.3); Creatinine Clr Calc Pharmacy 47.2 ml/min; Est GFR (African American) 53.8 ml/min; Est GFR (Non-African American) 46.5 ml/min; Globulin 2.7 gm/dl (2.5-4.0); Potassium 3.8 mmol/L (3.5-5.1); Total Protein 6.9 gm/dl (6.0-8.3)
[2023-05-16 23:14] LABS: Troponin I High Sensitivity 20.6 pg/ml (0-20)
[2023-05-16 23:41] LABS: D Dimer 7270 ug/L FEU (0-500)
[2023-05-17] MEDS ORDERED: OPTIRAY 320 500ml IV ONE (00:18)
--- NOTE | 2023-05-17 00:23 | Emergency Department Note ---
Impression & Plan Dyspnea, Bilateral edema of lower extremity, Elevated troponin ED Provider Note ED Provider Note NAME: FERNANDO GARRISON AGE:82 SEX: Male : 1940 ARRIVES VIA: private vehicle INFORMANT: Patient ED PROVIDER(s): Kristina Stapleton DO CHIEF COMPLAINT: Dyspnea HPI: This is an 82-year-old male presents emergency department due to to 3 days of acutely worsening dyspnea. Patient states he is most short of breath with any movement or exertion, and feels improved as long as he sits still. 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 He states he does not use any inhalers/nebs or home oxygen. Patient did recently have a TAVR at [facility] on April 23. He states prior to that he did have a cardiac catheterization and had a stent placed. Remotely patient did have prior cath with placement of 2 stents back in 2003. He denies any known sick contact. No recent change in other medications. Patient has noticed slightly increased lower extremity edema. PAST MEDICAL HISTORY:See Below PAST SURGICAL HISTORY:See Below FAMILY HISTORY:See Below SOCIAL HISTORY:See Below HOME MEDICATIONS:See Below ALLERGIES:See Below VITALS:See Below PHYSICAL EXAMINATION: GENERAL: alert, well appearing, well nourished, no distress, non-toxic EYE EXAM: normal conjunctiva, PERRL and EOM's grossly intact OROPHARYNX: no exudate, no erythema, lips, buccal mucosa, and tongue normal and mucous membranes are moist NECK: supple, no nuchal rigidity, no adenopathy, non-tender LUNGS: Clear to auscultation. Normal chest wall mechanics, no w/r/r HEART: no murmurs, S1 normal and S2 normal ABDOMEN: abdomen soft, non-tender, normo-active bowel sounds, no masses, no rebound or guarding. BACK: Back is symmetrical on inspection and there is no deformity, no midline tenderness, no CVA tenderness. SKIN: no rashes, petechiae, orbruising UPPER EXTREMITIES: upper extremities are grossly normal. FROM, nml pulses b/l. LOWER EXTREMITIES: No pitting edema. FROM, nml pulses b/l. NEURO EXAM: Normal sensorium, cranial nerves II-XII grossly intact, normal speech, no facial droop,nogross weakness of arms, no gross weakness of legs. Gross sensation intact. No ataxia. Vital Signs: reviewed and remarkable Differential Diagnosis: pneumonia, bronchitis, COPD/Asthma exacerbation, pneumothorax, pulmonary embolism, congestive heart failure, acute coronary syndrome, viral syndrome, as well as others were considered MEDICAL DECISION MAKING: This is an 82-year-old male who presents emergency department due to increased shortness of breath over the last 2 to 3 days. Patient with recent TAVR performed at [facility]. Vital signs stable and patient afebrile. No hypoxia or increased work of breathing noted while patient seated on the stretcher. Labs drawn and sent, IV established, EKG and chest ray performed bedside interpreted by me and patient monitored on telemetry. No obvious pathology noted on labs and imaging, nasal swab added to rule out acute viral illness. We also discussed additional CT of the chest as a precaution given he is status post TAVR. Patient sent for CT which was also reassuring. No evidence for PE, infiltrate, pulmonary edema, or pleural effusion. Ambulatory pulse ox was performed and patient did not have significant hypoxemia, but he did have significant increased work of breathing and tachypnea with minimal ambulation. Due to cardiac history, noted symptoms as well as accompanying lower extremity edema and concern for differential diagnosis, case discussed with the hospitalist for additional evaluation and management. Consultation(s): 0434: Discussed with Dr. Fung, [facility] hospitalist team, for additional evaluation and management. ER Treatment Provided: See below Diagnostics Interpreted By Me: -ECG: Sinus bradycardia at 59, normal axis, normal intervals, nonspecific ST/T wave change -Cardiac Monitoring: An order was placed for continuous cardiac monitoring. The monitor shows a rate of 58 with sinus bradycardia rhythm. -Laboratory studies: As stated above and show below. -Imaging studies: X-ray Chest: A single view study of the chest was reviewed and was negative for cardiomegaly, focal infiltrate, effusion, pulmonary edema, or wide mediastinum. Triage Nursing Note Reviewed Prior/Outside Records Reviewed -prior DC summary reviewed Past Med/Surg History Medical History BPH (benign prostatic hyperplasia) Bradycardia TARSHA (acute kidney injury) Cholecystocolonic fistula Aortic stenosis Near syncope Superficial laceration of back Dizziness GERD (gastroesophageal reflux disease) Muscle spasm Obesity (BMI 30-39.9) Hyperlipidemia Vitamin B12 deficiency Depression Hypertension Diabetes mellitus Social History (Reviewed 05/17/23 @ 04:38 by DAVID Santos Smoking Status: Never smoker Second Hand Exposure: No; Do You Dip or Chew Tobacco: No; Hx Alcohol Use: No Hx Substance Use: No Preferred Language: Niuean Communication Ability: Effective 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 Beliefs That Will Affect Care: None marital status: / Current Living Situation: Alone and Family Current Living Situation Comment: Daughter How many Children do You have: 4 Feels Safe at Home: Yes Assistive Devices: Cane Allergies Allergies Allergy/AdvReac Type Severity Reaction Status Date / Time atorvastatin [From Lipitor] AdvReac Severe CAUSED Verified 05/17/23 01:32 LIVER ISSUES Home Meds Home Medications Medication Instructions Recorded Confirmed acetaminophen 325 mg tablet 650 mg PO Q8H PRN FEVER/PAIN 05/05/21 05/17/23 (Tylenol) cholecalciferol (vitamin D3) 25 1,000 mcg PO DAILY 05/05/21 05/17/23 mcg (1,000 unit) capsule (Vitamin D3) rosuvastatin 40 mg tablet 20 mg PO DAILY 05/05/21 05/17/23 ascorbic acid (vitamin C) 500 mg 500 mg PO DAILY 04/23/22 05/17/23 tablet (Vitamin C) aspirin 81 mg chewable tablet 81 mg PO DAILY 04/23/22 05/17/23 citalopram 40 mg tablet (Celexa) 20 mg PO DAILY 04/23/22 05/17/23 cyanocobalamin (vitamin B-12) 500 2,500 mcg PO 3XWK 04/23/22 05/17/23 mcg tablet (Vitamin B-12) fluticasone propionate 50 1 spray intranasal DAILY 04/23/22 05/17/23 mcg/actuation nasal spray,suspension meclizine 25 mg tablet 25 mg PO DAILY PRN Dizziness 04/23/22 05/17/23 multivitamin with iron-mineral 1 tab PO DAILY 04/23/22 05/17/23 potassium chloride 20 mEq 10 meq PO DAILY 04/23/22 05/17/23 tablet,extended release clopidogrel 75 mg tablet 75 mg PO QPM 05/17/23 05/17/23 lidocaine 5 % topical patch 1 patch topical DAILY 05/17/23 05/17/23 lisinopril 20 mg tablet 20 mg PO BID 05/17/23 05/17/23 pantoprazole 20 mg tablet,delayed 20 mg PO DAILY 05/17/23 05/17/23 release potassium chloride 20 mEq 10 meq PO DAILY 05/17/23 05/17/23 tablet,extended release Previous Rx's Medication Instructions Recorded zinc sulfate 50 mg zinc (220 mg) 220 mg (4.4 x 50 mg zinc (220 mg)) 05/09/21 capsule (Orazinc) PO QAM #30 caps amlodipine 5 mg tablet 5 mg PO DAILY #30 tabs 01/25/22 Results & Data (ED) Vital Signs Vital Signs - 24 hr 05/16/23 21:59 05/16/23 23:11 05/17/23 00:00 Temperature 36.6 C Temperature Source Temporal Artery Scan Pulse Rate 59 L Pulse Rate [Exercises] Pulse Rate [Finger] 65 Pulse Rate [Recovery] Pulse Rate [Resting] Respiratory Rate 18 18 Respiratory Rate [Exercises] Respiratory Rate [Recovery] Respiratory Rate [Resting] Respiratory Effort / Characteristics Non-Labored Respiratory Depth Normal Blood Pressure 148/72 H Blood Pressure [Right Arm] 169/93 H Blood Pressure Mean 97 Blood Pressure Mean [Right Arm] 118 Pulse Oximetry 98 98 97 Pulse Oximetry [Exercises] Pulse Oximetry [Recovery] Pulse Oximetry [Resting] Oxygen Delivery Method Room Air Room Air Room Air Oxygen Flow Rate 0 Sepsis Recent Fever Within 48 Hours No Sepsis New/Unexplained Change in Mental Status No Sepsis Action Taken by Nursing No Action Required 05/17/23 00:00 05/17/23 02:00 05/17/23 04:00 Temperature Temperature Source Pulse Rate 56 L 55 L Pulse Rate [Exercises] Pulse Rate [Finger] 54 L Pulse Rate [Recovery] Pulse Rate [Resting] Respiratory Rate 20 Respiratory Rate [Exercises] Respiratory Rate [Recovery] Respiratory Rate [Resting] Respiratory Effort / Characteristics Respiratory Depth Blood Pressure Blood Pressure [Right Arm] 146/77 H Blood Pressure Mean Blood Pressure Mean [Right Arm] 100 Pulse Oximetry 94 Pulse Oximetry [Exercises] Pulse Oximetry [Recovery] Pulse Oximetry [Resting] Oxygen Delivery Method Room Air Oxygen Flow Rate Sepsis Recent Fever Within 48 Hours Sepsis New/Unexplained Change in Mental Status Sepsis Action Taken by Nursing 05/17/23 04:30 05/17/23 06:00 Temperature Temperature Source Pulse Rate Pulse Rate [Exercises] 70 Pulse Rate [Finger] 54 L Pulse Rate [Recovery] 62 Pulse Rate [Resting] 55 L Respiratory Rate 18 Respiratory Rate [Exercises] 28 H Respiratory Rate [Recovery] 24 Respiratory Rate [Resting] 20 Respiratory Effort / Characteristics Respiratory Depth Blood Pressure Blood Pressure [Right Arm] 163/86 H Blood Pressure Mean Blood Pressure Mean [Right Arm] 111 Pulse Oximetry 97 Pulse Oximetry [Exercises] 97 Pulse Oximetry [Recovery] 98 Pulse Oximetry [Resting] 98 Oxygen Delivery Method Room Air Room Air Oxygen Flow Rate Sepsis Recent Fever Within 48 Hours Sepsis New/Unexplained Change in Mental Status Sepsis Action Taken by Nursing Laboratory Data 05/16/23 22:18 05/16/23 22:18 Lab Results 05/16/23 05/16/23 05/17/23 Range/Units 22:18 23:59 01:13 WBC 5.56 (4.8-10.8) K/ul RBC 4.02 L (4.70-6.10) M/uL Hgb 12.5 L (14.0-18.0) g/dl Hct 37.0 L (42.0-52.0) % MCV 92.0 (80.0-100.0) fL MCH 31.1 (25.0-34.0) pg MCHC 33.8 (32.0-36.0) g/dL RDW Std Deviation 44.7 (36.4-46.3) fL RDW Coeff of Venancio 13.2 (11.5-14.5) % Plt Count 159 (130-400) K/uL MPV 11.0 (9.4-12.4) fL Immature Gran % (Auto) 0.7 % Neut % (Auto) 66.0 % Lymph % (Auto) 17.6 % Nelson % (Auto) 10.1 % Eos % (Auto) 5.2 % Baso % (Auto) 0.4 % Neut # (Auto) 3.67 (1.40-6.50) K/uL Lymph # (Auto) 0.98 L (1.20-3.40) K/uL Nelson # (Auto) 0.56 (0.11-0.59) K/uL Eos # (Auto) 0.29 (0.00-0.50) K/uL Baso # (Auto) 0.02 (0.00-0.20) K/uL Immature Gran # (Auto) 0.04 (0.01-0.20) K/uL D-Dimer 7270 H* (0-500) ug/L FEU Sodium 141 (136-145) mmol/L Potassium 3.8 (3.5-5.1) mmol/L Chloride 106 (98-107) mmol/L Carbon Dioxide 28 (21-32) mmol/L Anion Gap 7 (3-11) BUN 28 H (6-23) mg/dl Creatinine 1.40 (0.6-1.4) mg/dl Est Cr Clr Drug Dosing 47.2 ml/min Est GFR ( Amer) 53.8 ml/min Est GFR (Non-Af Amer) 46.5 ml/min BUN/Creatinine Ratio 20.0 (10-20) Glucose 104 H (70-99(Fasting)) mg/dl Calcium 9.5 (8.6-10.3) mg/dl Total Bilirubin 0.5 (0.2-1.0) mg/dl AST 26 (13-39) U/L ALT 20 (7-52) U/L Alkaline Phosphatase 97 (34-104) U/L Troponin I High Sens 20.6 H 20.0 (0-20) pg/ml B-Natriuretic Peptide 39 (0-100) pg/ml Total Protein 6.9 (6.0-8.3) gm/dl Albumin 4.2 (3.4-5.0) gm/dl Globulin 2.7 (2.5-4.0) gm/dl Albumin/Globulin Ratio 1.6 (0.9-2) Urine Color Urine Appearance (Clear) Urine pH (4.5-7.5) Ur Specific Kenna (1.000-1.030) Urine Protein (Negative) Urine Glucose (UA) (Negative) Urine Ketones (Negative) Urine Blood (Negative) Urine Nitrite (Negative) Urine Bilirubin (Negative) Urine Urobilinogen (Negative) Ur Leukocyte Esterase (Negative) Adenovirus (PCR) Not Detected (NotDetected) B. pertussis DNA (PCR) Not Detected (NotDetected) B.parapertussis DNA PCR Not Detected (NotDetected) C. pneumoniae DNA (PCR) Not Detected (NotDetected) Coronavirus OC43 (PCR) Not Detected (NotDetected) Coronavirus HKU1 (PCR) Not Detected (NotDetected) Coronavirus 229E (PCR) Not Detected (NotDetected) SARS-CoV-2 (PCR) Not Detected (NotDetected) Coronavirus NL63 (PCR) Not Detected (NotDetected) Human Metapneumovir PCR Not Detected (NotDetected) Influenza Type A (PCR) Not Detected (NotDetected) Influenza Type B (PCR) Not Detected (NotDetected) M. pneumoniae (PCR) Not Detected (NotDetected) Parainfluenza 1 (PCR) Not Detected (NotDetected) Parainfluenza 2 (PCR) Not Detected (NotDetected) Parainfluenza 3 (PCR) Not Detected (NotDetected) Parainfluenza 4 (PCR) Not Detected (NotDetected) RSV (PCR) Not Detected (NotDetected) Entero/Rhino (PCR) Not Detected (NotDetected) 05/17/23 Range/Units 01:29 WBC (4.8-10.8) K/ul RBC (4.70-6.10) M/uL Hgb (14.0-18.0) g/dl Hct (42.0-52.0) % MCV (80.0-100.0) fL MCH (25.0-34.0) pg MCHC (32.0-36.0) g/dL RDW Std Deviation (36.4-46.3) fL RDW Coeff of Venancio (11.5-14.5) % Plt Count (130-400) K/uL MPV (9.4-12.4) fL Immature Gran % (Auto) % Neut % (Auto) % Lymph % (Auto) % Nelson % (Auto) % Eos % (Auto) % Baso % (Auto) % Neut # (Auto) (1.40-6.50) K/uL Lymph # (Auto) (1.20-3.40) K/uL Nelson # (Auto) (0.11-0.59) K/uL Eos # (Auto) (0.00-0.50) K/uL Baso # (Auto) (0.00-0.20) K/uL Immature Gran # (Auto) (0.01-0.20) K/uL D-Dimer (0-500) ug/L FEU Sodium (136-145) mmol/L Potassium (3.5-5.1) mmol/L Chloride (98-107) mmol/L Carbon Dioxide (21-32) mmol/L Anion Gap (3-11) BUN (6-23) mg/dl Creatinine (0.6-1.4) mg/dl Est Cr Clr Drug Dosing ml/min Est GFR ( Amer) ml/min Est GFR (Non-Af Amer) ml/min BUN/Creatinine Ratio (10-20) Glucose (70-99(Fasting)) mg/dl Calcium (8.6-10.3) mg/dl Total Bilirubin (0.2-1.0) mg/dl AST (13-39) U/L ALT (7-52) U/L Alkaline Phosphatase (34-104) U/L Troponin I High Sens (0-20) pg/ml B-Natriuretic Peptide (0-100) pg/ml Total Protein (6.0-8.3) gm/dl Albumin (3.4-5.0) gm/dl Globulin (2.5-4.0) gm/dl Albumin/Globulin Ratio (0.9-2) Urine Color Yellow Urine Appearance Clear (Clear) Urine pH 6.0 (4.5-7.5) Ur Specific Kenna > 1.045 H (1.000-1.030) Urine Protein Negative (Negative) Urine Glucose (UA) Negative (Negative) Urine Ketones Negative (Negative) Urine Blood Negative (Negative) Urine Nitrite Negative (Negative) Urine Bilirubin Negative (Negative) Urine Urobilinogen Negative (Negative) Ur Leukocyte Esterase Negative (Negative) Adenovirus (PCR) (NotDetected) B. pertussis DNA (PCR) (NotDetected) B.parapertussis DNA PCR (NotDetected) C. pneumoniae DNA (PCR) (NotDetected) Coronavirus OC43 (PCR) (NotDetected) Coronavirus HKU1 (PCR) (NotDetected) Coronavirus 229E (PCR) (NotDetected) SARS-CoV-2 (PCR) (NotDetected) Coronavirus NL63 (PCR) (NotDetected) Human Metapneumovir PCR (NotDetected) Influenza Type A (PCR) (NotDetected) Influenza Type B (PCR) (NotDetected) M. pneumoniae (PCR) (NotDetected) Parainfluenza 1 (PCR) (NotDetected) Parainfluenza 2 (PCR) (NotDetected) Parainfluenza 3 (PCR) (NotDetected) Parainfluenza 4 (PCR) (NotDetected) RSV (PCR) (NotDetected) Entero/Rhino (PCR) (NotDetected) Administered Medications Sodium Chloride (Nss) 1,000 mls @ 150 mls/hr IV .[id number] MARIA LUISA Stop: 06/15/23 23:44 Last Admin: 05/17/23 00:31 Dose: 150 mls/hr Documented By: JANE Discontinued Medications Ioversol (Optiray 320 500ml) 125 ml IV ONCE ONE Stop: 05/17/23 00:19 Last Admin: 05/17/23 00:19 Dose: 96 ml Documented By: ERIC Simethicone (Simethicone 80 Mg Chew) 80 mg PO NOW ONE Stop: 05/17/23 05:26 Last Admin: 05/17/23 06:00 Dose: 80 mg Documented By: JANE Imaging Data Radiologist's Impression: Chest CTA 05/16/23 23:56 Exam(s): CTA CHEST IV Amt: 96 ML OPTIRAY 320 EXAM: CT Angiography Chest With Intravenous Contrast CLINICAL HISTORY: Reason for exam: PE. TECHNIQUE: Axial computed tomographic angiography images of the chest with intravenous contrast. CTDI is 46.96 mGy and DLP is 885.16 mGy-cm. Automated exposure control was utilized for the study. A dose lowering technique was utilized adhering to the principles of ALARA. MIP reconstructed images were created and reviewed. COMPARISON: 01/22/2022. FINDINGS: Pulmonary arteries: Unremarkable. No pulmonary embolism. Aorta: Mild atherosclerotic disease of aorta with no aneurysm. Standing of the aortic root. Lungs: Bilateral lower lobe atelectasis. Subpleural cystic changes and interstitial prominence and mild honeycombing suggestive of early basilar fibrosis. Mild posterior dependent atelectasis involving the bilateral upper lobes. No mass. Pleural space: Unremarkable. No pleural effusion or pneumothorax. Heart: Mild cardiomegaly with coronary artery calcifications. No significant pericardial effusion. No evidence of RV dysfunction. Bones/joints: No acute fracture. No dislocation. Soft tissues: Unremarkable. Lymph nodes: Unremarkable. No enlarged lymph nodes. Gallbladder and bile ducts: Upper abdomen reveals contracted gallbladder. Possible stones versus vicarious excretion of contrast within the gallbladder. Remainder of the visualized upper abdominal structures are unremarkable. Other findings: Nonspecific degenerative disease of the spine. IMPRESSION: 1. No pulmonary embolus or aortic dissection. 2. Bilateral lower lobe atelectasis with possible early pulmonary fibrosis. Electronically signed by: Victoria Penaloza MD 05/17/23 03:27 AM Discharge Plan Visit Data Chief Complaint: Shortness of Breath/Dyspnea Stated Complaint: SOB, Fatigue,TOOK NIGHT TIME MEDS ED Provider: Kristina Stapleton Discharge Problem: Dyspnea, Bilateral edema of lower extremity, Elevated troponin Forms Stand Alone Forms: [facility] Prescriptions Prescriptions: No Action acetaminophen [Tylenol] 325 mg Tablet 650 mg PO Q8H PRN (Reason: FEVER/PAIN) cholecalciferol (vitamin D3) [Vitamin D3] 25 mcg (1,000 unit) Capsule 1,000 mcg PO DAILY rosuvastatin 40 mg Tablet 20 mg PO DAILY Rx Instructions: 1/2 tablet dose zinc sulfate [Orazinc] 50 mg zinc (220 mg) Capsule 220 mg PO QAM Qty: 30 0RF amlodipine 5 mg tablet 5 mg PO DAILY Qty: 30 0RF citalopram [Celexa] 40 mg Tablet 20 mg PO DAILY cyanocobalamin (vitamin B-12) [Vitamin B-12] 500 mcg Tablet 2,500 mcg PO 3XWK Rx Instructions: TAKE 5 TABS MON, WED, & FRI. ascorbic acid (vitamin C) [Vitamin C] 500 mg Tablet 500 mg PO DAILY meclizine 25 mg Tablet 25 mg PO DAILY PRN (Reason: Dizziness) aspirin 81 mg Tablet,Chewable 81 mg PO DAILY fluticasone propionate [Flonase] 50 mcg/actuation Cornell,Suspension 1 spray INTRANASAL DAILY Rx Instructions: administer into each nostril Multivitamin-Minerals Tablet 1 tab PO DAILY potassium chloride 20 mEq Tablet Extended Release 10 meq PO DAILY Rx Instructions: 1/2 tablet dose clopidogrel 75 mg Tablet 75 mg PO QPM lisinopril 20 mg Tablet 20 mg PO BID pantoprazole 20 mg Tablet,Delayed Release (Dr/Ec) 20 mg PO DAILY lidocaine 5 % Adhesive Patch,Medicated 1 patch TOPICAL DAILY Rx Instructions: apply to lower back - 12 hours on -12 hours off potassium chloride 20 mEq Tablet Extended Release 10 meq PO DAILY Rx Instructions: 1/2 tablet dose Referrals Referrals: Oly Ellsworth PA-C [Primary Care Provider] -
[2023-05-17] MEDS: SODIUM CHLORIDE 0.9% 1,000 ML IV SCH ×2 (00:31→08:02)
[2023-05-17 01:05] LABS: Adenovirus PCR Not Detected (NotDetected); Bordetella parapertussis PCR Not Detected (NotDetected); Bordetella pertussis PCR Not Detected (NotDetected); Chlamydia pneumoniae PCR Not Detected (NotDetected); Coronavirus 229E PCR Not Detected (NotDetected); Coronavirus CoV-2 (COVID19)PCR Not Detected (NotDetected); Coronavirus HKU1 PCR Not Detected (NotDetected); Coronavirus NL63 PCR Not Detected (NotDetected); Coronavirus OC43PCR Not Detected (NotDetected); Human Metapneumovirus PCR Not Detected (NotDetected); Influenza A PCR Not Detected (NotDetected); Influenza B PCR Not Detected (NotDetected); Mycoplasma pneumoniae PCR Not Detected (NotDetected); Parainfluenza Virus 1 PCR Not Detected (NotDetected); Parainfluenza Virus 2 PCR Not Detected (NotDetected); Parainfluenza Virus 3 PCR Not Detected (NotDetected); Parainfluenza Virus 4 PCR Not Detected (NotDetected); Respiratory Syncytial VirusPCR Not Detected (NotDetected); Rhinovirus/Enterovirus PCR Not Detected (NotDetected)
[2023-05-17 01:39] LABS: Appearance Urine Clear (Clear); Bilirubin Urine Negative (Negative); Blood Urine Negative (Negative); Color Urine Yellow; Glucose Urine UA Negative (Negative); Ketones Urine Negative (Negative); Leukocyte Esterase Urine Negative (Negative); Nitrite Urine Negative (Negative); Protein Urine Negative (Negative); Specific Gravity Urine > 1.045 (1.000-1.030); Urobilinogen Urine Negative (Negative)
--- NOTE | 2023-05-17 03:28 | CT Scan Report ---
Exam(s): CTA CHEST IV Amt: 96 ML OPTIRAY 320 EXAM: CT Angiography Chest With Intravenous Contrast CLINICAL HISTORY: Reason for exam: PE. TECHNIQUE: Axial computed tomographic angiography images of the chest with intravenous contrast. CTDI is 46.96 mGy and DLP is 885.16 mGy-cm. Automated exposure control was utilized for the study. A dose lowering technique was utilized adhering to the principles of ALARA. MIP reconstructed images were created and reviewed. COMPARISON: 01/22/2022. FINDINGS: Pulmonary arteries: Unremarkable. No pulmonary embolism. Aorta: Mild atherosclerotic disease of aorta with no aneurysm. Standing of the aortic root. Lungs: Bilateral lower lobe atelectasis. Subpleural cystic changes and interstitial prominence and mild honeycombing suggestive of early basilar fibrosis. Mild posterior dependent atelectasis involving the bilateral upper lobes. No mass. Pleural space: Unremarkable. No pleural effusion or pneumothorax. Heart: Mild cardiomegaly with coronary artery calcifications. No significant pericardial effusion. No evidence of RV dysfunction. Bones/joints: No acute fracture. No dislocation. Soft tissues: Unremarkable. Lymph nodes: Unremarkable. No enlarged lymph nodes. Gallbladder and bile ducts: Upper abdomen reveals contracted gallbladder. Possible stones versus vicarious excretion of contrast within the gallbladder. Remainder of the visualized upper abdominal structures are unremarkable. Other findings: Nonspecific degenerative disease of the spine. IMPRESSION: 1. No pulmonary embolus or aortic dissection. 2. Bilateral lower lobe atelectasis with possible early pulmonary fibrosis. Electronically signed by: Victoria Penaloza MD 05/17/23 03:27 AM
--- NOTE | 2023-05-17 05:05 | History & Physical Report ---
Date of Service May 17, 2023 Assessment & Plan (1) Dyspnea on minimal exertion: Plan: 82 M, PMH hypertension, hyperlipidemia, recent TAVR, who presents to the emergency room with worsening dyspnea on exertion. Now stable, admitted to the hospital for further evaluation. Dyspnea on exertion -No effusion or edema on CXR, chest CT. hemodynamically stable. Normal troponin, BNP. -D-dimer 7270. No PE or dissection on CTA chest. -TAVR at [facility] on 04/23. Most recent echo 01/13/2022: EF = 60-65% with moderate- severe valvular aortic stenosis. -Patient goes to [place] [facility] * Admit to med telemetry * TTE echo pending. * Defer cardiac/pulmonary consultation pending initial hospital evaluation. Elevated D-dimer -No PE or dissection on CTA chest. Pedal edema is mild and bilateral. -No evidence of infection/sepsis, malignancy. Recent surgery <1-month. * Continue to monitor Hypertension -Managed on amlodipine, lisinopril. Normotensive-elevated * Continue S/p recent TAVR -Procedure done at [facility] in April. * Continue lisinopril, amlodipine. Obstructive sleep apnea -Uses CPAP at home * CPAP ordered Abdominal distention -Discovered on exam on admission. -S/p simethicone chew 80 mg x 1. * Monitor Code: DNR/DNI Dispo: Med-Surg telemetry FEN/GI: Heart healthy DVT Prophylaxis: Lovenox 40 mg q24h PT/OT: No Consults: Case Management: No (2) Elevated d-dimer: (3) Obstructive sleep apnea: (4) Hypertension: (5) S/P TAVR (transcatheter aortic valve replacement): History of Present Illness Primary Care Provider: Oly Ellsworth PA-C Bradley is an 82-year-old man with a past medical history of hyperlipidemia, GERD, BPH, episodic dizziness, and prediabetes, who presents today with worsening shortness of breath x3 days. Per ED report, dyspnea is most severe with minimal exertion and relieved with rest. ROS + nausea, and dizziness when bending over. He denies chest pain, loss of consciousness, abdominal pain, jaw pain, shoulder pain, or back pain. He recently underwent a TAVR procedure at [facility] last month (). He is a former smoker with an approximately [id number] history. No history of asthma or obstructive lung disease. 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 He has no oxygen requirement at baseline. In the ED, vitals were notable for bradycardia to the mid to high 50s. Oxygen saturation was 98% on room air. Labs were most notable for D-dimer of 7270. WBC count was normal (5.56), as well as rest of CBC. CMP was normal with no electrolyte abnormalities. BNP was also normal (39). CXR was negative for acute abnormality. CTA chest was negative for pulmonary embolus or aortic dissection. On admission, he was started on maintenance fluids. Hospitalist service was then consulted for admission for further evaluation. He also notes shortness of breath has occurred on and off within the last year, but started to worsen after TAVR, became most severe in the last 3 days. He denies shortness of breath, nausea, or dizziness on admission. Allergies Allergy/AdvReac Type Severity Reaction Status Date / Time atorvastatin [From Lipitor] AdvReac Severe CAUSED Verified 05/17/23 01:32 LIVER ISSUES Home Medications Medication Instructions Recorded Confirmed Type acetaminophen 325 mg tablet 650 mg PO Q8H PRN FEVER/PAIN 05/05/21 05/17/23 History (Tylenol) cholecalciferol (vitamin D3) 25 1,000 mcg PO DAILY 05/05/21 05/17/23 History mcg (1,000 unit) capsule (Vitamin D3) rosuvastatin 40 mg tablet 20 mg PO DAILY 05/05/21 05/17/23 History zinc sulfate 50 mg zinc (220 mg) 220 mg (4.4 x 50 mg zinc (220 mg)) 05/09/21 05/17/23 Rx capsule (Orazinc) PO QAM #30 caps amlodipine 5 mg tablet 5 mg PO DAILY #30 tabs 01/25/22 05/17/23 Rx ascorbic acid (vitamin C) 500 mg 500 mg PO DAILY 04/23/22 05/17/23 History tablet (Vitamin C) aspirin 81 mg chewable tablet 81 mg PO DAILY 04/23/22 05/17/23 History citalopram 40 mg tablet (Celexa) 20 mg PO DAILY 04/23/22 05/17/23 History cyanocobalamin (vitamin B-12) 500 2,500 mcg PO 3XWK 10/17/22 11/10/23 History mcg tablet (Vitamin B-12) fluticasone propionate 50 1 spray intranasal DAILY 04/23/22 05/17/23 History mcg/actuation nasal spray,suspension meclizine 25 mg tablet 25 mg PO DAILY PRN Dizziness 04/23/22 05/17/23 History multivitamin with iron-mineral 1 tab PO DAILY 04/23/22 05/17/23 History potassium chloride 20 mEq 10 meq PO DAILY 04/23/22 05/17/23 History tablet,extended release clopidogrel 75 mg tablet 75 mg PO QPM 05/17/23 05/17/23 History lidocaine 5 % topical patch 1 patch topical DAILY 05/17/23 05/17/23 History lisinopril 20 mg tablet 20 mg PO BID 05/17/23 05/17/23 History pantoprazole 20 mg tablet,delayed 20 mg PO DAILY 05/17/23 05/17/23 History release potassium chloride 20 mEq 10 meq PO DAILY 05/17/23 05/17/23 History tablet,extended release Past Med/Surg History Medical History Fibrosis of lung History of COVID-19 Aortic stenosis Hypertension BPH (benign prostatic hyperplasia) Bradycardia TARSHA (acute kidney injury) Cholecystocolonic fistula Aortic stenosis Near syncope Superficial laceration of back Dizziness GERD (gastroesophageal reflux disease) Muscle spasm Obesity (BMI 30-39.9) Hyperlipidemia Vitamin B12 deficiency Depression Diabetes mellitus Social History Smoking Status: Former smoker Second Hand Exposure: No; Do You Dip or Chew Tobacco: No; Hx Alcohol Use: No Hx Substance Use: No Preferred Language: Greenlandic Communication Ability: Effective Hydrotel Operator Required: No Beliefs That Will Affect Care: None marital status: / Current Living Situation: Family Current Living Situation Comment: lives in an appartment with daughter How many Children do You have: 4 Feels Safe at Home: Yes Assistive Devices: CPAP, Glasses and Hearing Aid - Bilateral Review of Systems Review of Systems: All systems reviewed & are unremarkable except as noted in HPI & below Physical Exam Physical Exam: General: No acute distress HEENT: PERRLA. Normal conjunctiva, anicteric sclera. Oropharynx normal. Respiratory: Normal respiratory effort. Diffuse expiratory wheezes most prominent at mid lung, bases bilaterally. No crackles, rhonchi, or rubs. Cardiovascular: Bradycardic. Regular rhythm. No murmurs, gallops, or rubs. 1+ pedal edema. GI: Large, round protuberant abdomen with high-pitched bowel sounds heard diffusely on auscultation. Nontender x4 quadrants. Neuro: Alert and oriented x3. Results & Data Results & Data Vital Signs (Past 12 Hours) Vital Signs Temp Pulse Pulse Resp BP BP Pulse Ox 05/17/23 04:00 55 L 05/17/23 02:00 54 L 20 146/77 H 94 05/17/23 00:00 56 L 05/17/23 00:00 65 18 169/93 H 97 05/16/23 23:11 98 05/16/23 21:59 36.6 C 59 L 18 148/72 H 98 O2 Del Method O2 Flow Rate 05/17/23 04:00 05/17/23 02:00 Room Air 05/17/23 00:00 05/17/23 00:00 Room Air 05/16/23 23:11 Room Air 0 05/16/23 21:59 Room Air Supervising Physician Co-Signing Physician Notes Attending addendum: I have physically seen this patient, have supervised the medical residents activities, and agree with the H&P unless as otherwise noted. Assessment and Plan: Dyspnea on exertion- Generalized weakness and fatigue D-dimer elevated at 7270, with CTA chest negative for PE or dissection Status post TAVR at [facility] on 04/23/2023. No signs of endocarditis, but needs to be considered The patient will be admitted to telemetry for serial cardiac enzymes, serial EKG's, cardiac rhythm monitoring and a 2-D echocardiogram with Dopplers. PT/OT consult, question if will need inpatient rehab Hypertension/status post TAVR/CAD status post stent prior to TAVR- The patient will be admitted to telemetry for serial cardiac enzymes, serial EKG's, cardiac rhythm monitoring and a 2-D echocardiogram with Dopplers. Continue amlodipine, aspirin, clopidogrel, lisinopril, potassium chloride Abdominal distention- Simethicone chews as noted Resident Activity Tracking Resident Involvement: Resident Care Provided Care Provided: Adult [facility]
[2023-05-17] MEDS ORDERED: SIMETHICONE 80 MG CHEW PO ONE (05:25)
--- NOTE | 2023-05-17 07:54 | XRay Report ---
XR chest 1V portable HISTORY: 82 years-old Male Dyspnea acute shortness of breath COMPARISON: CT chest 05/17/2023 TECHNIQUE: AP view of the chest FINDINGS: Cardiac silhouette is enlarged. Atherosclerosis of the aorta. Prosthetic aortic valve. Chronic inters titial coarsening without pneumothorax, pleural effusion or overt pulmonary edema. Bones appear gross ly intact. IMPRESSION: Cardiomegaly without acute process. ACT 112: Negative or not required by law. The above report was generated using voice recognition software. It may contain grammatical, syntax o r spelling errors. Electronically signed by: Og Gar M.D. 05/17/2023 7:52 AM
[2023-05-17] MEDS ORDERED: MECLIZINE HCL 25 MG TAB PO PRN (10:07)
[2023-05-17] MEDS ORDERED: MELATONIN 3 MG TAB PO PRN (10:07)
[2023-05-17] MEDS ORDERED: ASPIRIN 81 MG CHEW PO SCH (10:30)
[2023-05-17] MEDS ORDERED: CYANOCOBALAMIN (B-12) 500 MCG TABLET PO SCH (10:30)
--- NOTE | 2023-05-17 11:45 | XCELERA ---
[id number]
[2023-05-17] MEDS: CHOLECALCIFEROL 1,000 UNITS 25 MCG TAB PO SCH (12:13)
[2023-05-17] MEDS: ASCORBIC ACID 500 MG TAB PO SCH (12:14)
[2023-05-17] MEDS: amLODIPine BESYLATE 5 MG TAB PO SCH (12:14)
[2023-05-17] MEDS: CITALOPRAM 20 MG TAB PO SCH (12:15)
[2023-05-17] MEDS: POTASSIUM CHLORIDE 10 MEQ TABCR PO SCH (12:16)
[2023-05-17] MEDS: LIDOCAINE 5% 1 PATCH TD SCH (12:16)
[2023-05-17] MEDS: lisinopril 20 MG TAB PO SCH ×2 (12:16→20:44)
[2023-05-17] MEDS: PANTOprazole 40 MG TAB PO SCH (12:16)
[2023-05-17] MEDS: CEROVITE ADV FORMULA TAB PO SCH (12:18)
[2023-05-17] MEDS: ENOXAPARIN INJ 40 MG/0.4 ML SYR SQ SCH (12:18)
[2023-05-17] MEDS: ROSUVASTATIN CALCIUM 20 MG TAB PO SCH (12:18)
[2023-05-17] MEDS: ZINC SULFATE 220 MG CAPSULE PO SCH (12:19)
[2023-05-17] MEDS: FLUTICASONE PROPIONATE NA SPR 16 GM BTL SCH (12:19)
--- NOTE | 2023-05-17 13:01 | Electrocardiogram Report ---
Test Reason : Blood Pressure : / mmHG Vent. Rate : 059 BPM Atrial Rate : 059 BPM P-R Int : 186 ms QRS Dur : 108 ms QT Int : 460 ms P-R-T Axes : 018 -13 075 degrees QTc Int : 455 ms Sinus bradycardia Septal infarct (cited on or before 16-MAY-2023) Abnormal ECG When compared with ECG of 23-APR-2022 16:25, Premature atrial complexes are no longer Present QRS duration has increased Questionable change in initial forces of Septal leads T wave inversion no longer evident in Inferior leads Confirmed by Ricki Aguilar ([id number]) on 05/17/2023 1:00:58 PM Referred By: REFERRED SELF Confirmed By:Ricki Aguilar
[2023-05-17] MEDS: ASPIRIN 81 MG ECTAB PO SCH (14:34)
[2023-05-17] MEDS ORDERED: Nursing to Pharmacy Communication SCH (15:45)
--- NOTE | 2023-05-17 19:30 | History & Physical Bridge Note ---
Date of Service May 17, 2023 History & Physical Bridge Note I have examined the patient, reviewed the History & Physical and in the interval since the performance of the History & Physical I have noted the following changes of clinical significance: Pt feels better today and ambulated the halls. However, he reports he never really felt that much better since his TAVR 3 weeks ago. He simply felt much worse the last 2 days with SCHAEFER. No CP. No leg swelling or weight gain. He still feels fatigued but not as fatigued since having the TAVR. ECHO here with moderate-severe which is concerning Check troponin x 1 more time Consult Cardio for SCHAEFER and persistent mod-severe 3 weeks s/p TAVR. May need to reach out to his Cardiology team at [facility] in [place] [facility] as does have some fibrosis but no wheezing and not likely a primary PULM issue. CTA Chest read as neg for PE. continue tele monitoring overnight and await Cardio/PULM consults Sat
[2023-05-17] MEDS: CYANOCOBALAMIN (B-12) 500 MCG TABLET PO SCH (20:45)
[2023-05-17] MEDS ORDERED: CLOPIDOGREL BISULFATE 75 MG TAB PO SCH (21:00)
[2023-05-18 06:11] LABS: Hematocrit (blood only) 33.1 % (42.0-52.0); Hemoglobin 11.1 g/dl (14.0-18.0); Mean Corpuscular Hemoglobin 30.6 pg (25.0-34.0); Mean Corpuscular Hgb Conc 33.5 g/dL (32.0-36.0); Mean Corpuscular Volume 91.2 fL (80.0-100.0); Mean Platelet Volume 10.9 fL (9.4-12.4); Platelet Count 134 K/uL (130-400); RDW Standard Deviation 43.5 fL (36.4-46.3); Red Blood Count 3.63 M/uL (4.70-6.10); White Blood Count 4.38 K/ul (4.8-10.8)
[2023-05-18 06:32] LABS: BUN Creatinine Ratio 15.8 (10-20); Calcium 9.3 mg/dl (8.6-10.3); Creatinine Clr Calc Pharmacy 43.6 ml/min; Est GFR (African American) 48.8 ml/min; Est GFR (Non-African American) 42.1 ml/min; Phosphorus 4.5 mg/dl (2.5-4.9)
[2023-05-18 07:10] LABS: Estimated Average Glucose 120 mg/dl; Hemoglobin A1C 5.8 % (4.5-5.6)
--- NOTE | 2023-05-18 09:09 | Pulmonary Consultation ---
Date of Consultation May 18, 2023 Assessment & Plan (1) Aortic stenosis: (2) History of COVID-19: (3) Fibrosis of lung: (4) SOB (shortness of breath): Plan 82-year-old male with a history of COVID-19 infection requiring hospitalization in 2020, aortic stenosis status post TAVR at [facility] and [place] on CPAP who presented to the hospital due to shortness of breath over the past 3 to 4 days. I reviewed serial CT scans that are available in our system dating back to his COVID-19 infection in 2020. On the CT scan in 2020 he had bilateral lower lobe groundglass changes with evidence of fibrosis. On the CT from this admission the groundglass changes have resolved, but there continues to be persistent subpleural fibrotic changes which look relatively unchanged compared to prior. I do not suspect that his acute symptoms are secondary to these post COVID-19 fibrotic changes. Certainly he could be followed as an outpatient with PFTs and an HRCT in 6 months. The more pressing issues seem to be related to his aortic valve stenosis. He underwent a TAVR last month at [facility] and presently on the echo from this admission there is evidence of moderate to severe aortic stenosis. He also has a loud systolic murmur. This will need further work-up with his [facility] guard chief to ensure the competency of his TAVR. He appears stable at this time and would like to go home. I think he is safe for discharge from a pulmonary perspective. Please obtain ambulatory saturations on room air to evaluate for supplemental oxygen needs prior to discharge. I spoke with the on-call guard chief and hospitalist and appreciate their input. Thank you for allowing me to participate in the care of the patient. No further recommendations at this time. Please call with questions. History of Present Illness Reason for Consultation: Abnormal CT chest Attending Physician: Joann Bueno MD History of Present Illness 82-year-old male who presented to the ER 05/17/2023 due to 3 days of acutely worsening shortness of breath with exertion. He denies any cough. He notes he was having shortness of breath even with standing. He denies any dizziness. He has had some mild substernal chest tightness that comes and goes. He apparently had a TAVR at [facility] on April 23. He was admitted under the hospitalist service. He had a chest CTA completed 05/16/2023 which I personally reviewed which revealed evidence of bilateral lower lobe atelectasis with areas of subpleural fibrosis and cyst formation. These findings appear largely stable dating back to the CT chest from 05/05/2021. He relates that he was in the [employer] for 2 years. 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 He denies any exposures to dust or fumes. He currently lives with his daughter and they have a cat. He denies any exotic pet exposures such as birds. 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 Notably he did have a hospitalization in April to May 2021 for COVID-19 pneumonia and at that time his findings are consistent with COVID-[address] chest with bilateral lower lobe groundglass changes with areas of fibrosis. He underwent an echo this admission with revealed an LVEF of 60 to 65% and moderate to severe valvular aortic stenosis. Allergies Allergy/AdvReac Type Severity Reaction Status Date / Time atorvastatin [From Lipitor] AdvReac Severe CAUSED Verified 05/17/23 01:32 LIVER ISSUES Home Medications Medication Instructions Recorded Confirmed Type acetaminophen 325 mg tablet 650 mg PO Q8H PRN FEVER/PAIN 05/05/21 05/17/23 History (Tylenol) cholecalciferol (vitamin D3) 25 1,000 mcg PO DAILY 05/05/21 05/17/23 History mcg (1,000 unit) capsule (Vitamin D3) rosuvastatin 40 mg tablet 20 mg PO DAILY 05/05/21 05/17/23 History zinc sulfate 50 mg zinc (220 mg) 220 mg (4.4 x 50 mg zinc (220 mg)) 05/09/21 05/17/23 Rx capsule (Orazinc) PO QAM #30 caps amlodipine 5 mg tablet 5 mg PO DAILY #30 tabs 01/25/22 05/17/23 Rx ascorbic acid (vitamin C) 500 mg 500 mg PO DAILY 04/23/22 05/17/23 History tablet (Vitamin C) aspirin 81 mg chewable tablet 81 mg PO DAILY 04/23/22 05/17/23 History citalopram 40 mg tablet (Celexa) 20 mg PO DAILY 04/23/22 05/17/23 History cyanocobalamin (vitamin B-12) 500 2,500 mcg PO 3XWK 04/23/22 05/17/23 History mcg tablet (Vitamin B-12) fluticasone propionate 50 1 spray intranasal DAILY 04/23/22 05/17/23 History mcg/actuation nasal spray,suspension meclizine 25 mg tablet 25 mg PO DAILY PRN Dizziness 04/23/22 05/17/23 History multivitamin with iron-mineral 1 tab PO DAILY 04/23/22 05/17/23 History potassium chloride 20 mEq 10 meq PO DAILY 04/23/22 05/17/23 History tablet,extended release clopidogrel 75 mg tablet 75 mg PO QPM 05/17/23 05/17/23 History lidocaine 5 % topical patch 1 patch topical DAILY 05/17/23 05/17/23 History lisinopril 20 mg tablet 20 mg PO BID 05/17/23 05/17/23 History pantoprazole 20 mg tablet,delayed 20 mg PO DAILY 05/17/23 05/17/23 History release potassium chloride 20 mEq 10 meq PO DAILY 05/17/23 05/17/23 History tablet,extended release Patient History Medical History (Updated 05/18/23 @ 10:04 by Chon Osborne MD) Fibrosis of lung History of COVID-19 Aortic stenosis Hypertension BPH (benign prostatic hyperplasia) Bradycardia TARSHA (acute kidney injury) Cholecystocolonic fistula Aortic stenosis Near syncope Superficial laceration of back Dizziness GERD (gastroesophageal reflux disease) Muscle spasm Obesity (BMI 30-39.9) Hyperlipidemia Vitamin B12 deficiency Depression Diabetes mellitus Social History Smoking Status: Former smoker Second Hand Exposure: No; Do You Dip or Chew Tobacco: No; Hx Alcohol Use: No Hx Substance Use: No Preferred Language: Icelandic Communication Ability: Effective Lace Pinner Required: No Beliefs That Will Affect Care: None marital status: / Current Living Situation: Family Current Living Situation Comment: lives in an appartment with daughter How many Children do You have: 4 Feels Safe at Home: Yes Safety Concerns: Feels Safe At This Time Assistive Devices: CPAP, Glasses and Hearing Aid - Bilateral Review of Systems Review of Systems: All systems reviewed & are unremarkable except as noted in HPI & below Physical Exam Physical Exam: Constitutional: Patient appears to be of their stated age. Patient is in no apparent distress. Patient is well-developed. Eyes: Pupils are equal round and reactive to light. Conjunctivae are normal. Anicteric sclera. Ears nose, mouth and throat: Deferred Neck: Trachea is midline. Visual inspection is normal. Respiratory: Bilateral lower lobe crackles noted. No increased work of breathing. Cardiovascular: Regular rate and rhythm. 3 out of 6 systolic flow murmur. Minimal edema. Gastrointestinal: Normal bowel sounds, soft, nontender and nondistended. No hepatosplenomegaly noted. Musculoskeletal: No cyanosis. Patient is able to move all extremities. Strength is 5 out of 5 in the upper and lower extremities. Skin: No rashes, warm dry and intact. Neurologic: No obvious focal neurological deficits seen. Psychiatric: Alert and oriented x3 with a euthymic affect. Results & Data Results & Data Vital Signs (Past 12 Hours) Vital Signs Temp Pulse Pulse Resp BP Pulse Ox O2 Del Method 05/18/23 08:03 36.6 C 81 18 137/83 97 CPAP 05/18/23 07:01 56 L 05/18/23 04:01 36.8 C 70 18 129/79 98 Room Air, CPAP 05/17/23 23:24 59 L 05/17/23 23:04 36.9 C 54 L 18 166/88 H 96 Room Air 05/17/23 21:42 Room Air PG Care Time/CCT Total # of Minutes Spent Total Time Spent with Patient: Total time spent is greater than 50% in coordination of care (as documented) at patient's floor/unit and/or counseling patient: Coding Level of Care Code 48229 INT INP/OBS CARE 3/75MIN Diagnoses Aortic stenosis I35.0 History of COVID-19 Z86.16 Fibrosis of lung J84.10 SOB (shortness of breath) R06.02
[2023-05-18] MEDS: amLODIPine BESYLATE 5 MG TAB PO SCH (09:41)
[2023-05-18] MEDS: FLUTICASONE PROPIONATE NA SPR 16 GM BTL SCH (09:43)
[2023-05-18] MEDS: ENOXAPARIN INJ 40 MG/0.4 ML SYR SQ SCH (09:43)
[2023-05-18] MEDS: LIDOCAINE 5% 1 PATCH TD SCH (09:43)
[2023-05-18] MEDS: CYANOCOBALAMIN (B-12) 500 MCG TABLET PO SCH (09:44)
[2023-05-18] MEDS: POTASSIUM CHLORIDE 10 MEQ TABCR PO SCH (09:44)
[2023-05-18] MEDS: lisinopril 20 MG TAB PO SCH (09:44)
[2023-05-18] MEDS: PANTOprazole 40 MG TAB PO SCH (09:44)
[2023-05-18] MEDS: CHOLECALCIFEROL 1,000 UNITS 25 MCG TAB PO SCH (09:44)
[2023-05-18] MEDS: CITALOPRAM 20 MG TAB PO SCH (09:44)
[2023-05-18] MEDS: ASCORBIC ACID 500 MG TAB PO SCH (09:44)
[2023-05-18] MEDS: CEROVITE ADV FORMULA TAB PO SCH (09:44)
[2023-05-18] MEDS: ASPIRIN 81 MG ECTAB PO SCH (09:44)
[2023-05-18] MEDS: ROSUVASTATIN CALCIUM 20 MG TAB PO SCH (09:45)
[2023-05-18] MEDS: ZINC SULFATE 220 MG CAPSULE PO SCH (09:45)
--- NOTE | 2023-05-18 10:07 | Cardiology Consultation ---
Date of Consultation May 18, 2023 Assessment & Plan (1) Dyspnea on minimal exertion: (2) Aortic stenosis: Plan 1. Dyspnea on exertion: I cannot really explain his sudden dyspnea on exertion, he did not seem to be in congestive heart failure based on chest x-ray and CT scanning but he feels much better today. I am not sure this was cardiac in nature. 2. Aortic stenosis: He does have aortic stenosis, his gradient appears to be a little elevated for a TAVR but it is not terribly high and would not be expected to be normal. There may be an issue with the valve but it does not explain his presentation. Since he has an appointment in 2 days with the cardiology depa rtment where the valve was implanted I would recommend keeping that appointment and not pursuing evaluation here. We could do a ISH to see whether there is an issue with the valve, but it does not seem to be leaking and there is nothing we would do with it at our institution. I do not think there is any role for coronary angiography. 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 History of Present Illness Reason for Consultation: YUE, TAVR Attending Physician: Joann Bueno MD History of Present Illness This is an 82-year-old male who [facility] and we have not evaluated him here before. He does however have a fairly extensive cardiovascular history which includes aortic stenosis, we have an echocardiogram from January 23, 2022 where he had moderate to severe aortic stenosis with mild aortic insufficiency but normal left ventricular function, his aortic valve area was calculated as 1.1 cm with a maximum gradient of 40 mmHg. Although I do not have records he is reported to have a TAVR at [facility] on April 23, 2023. He presented on May 17, 2023 with worsening dyspnea on exertion. Evaluation however showed no edema on chest x-ray, chest CT really did not show pulmonary fluid and did not show a PE. On pulmonary evaluation he does have some lung fibrosis which is probably due to history of COVID-19, however. Improved not worsened over that time frame. He had an echocardiogram done May 17, 2023 which showed normal left ventricular function, mild concentric left ventricular hypertrophy with reported moderate to severe aortic stenosis (the TAVR was not mentioned but that can be missed) and felt to be unchanged from January 2022. His aortic stenosis appeared improved compared to the prior echo based on measurements, a valve area is not given on his current echocardiogram but the mean pressure gradient was only 12.5 mmHg with a peak of 28. Although this is elevated for a TAVR it is not severe and is improved compared to his prevalve replacement echoes. Troponin measurements were performed and are generally unremarkable with only 1 barely above and the others well below. His electrocardiogram on presentation showed sinus rhythm at just under 60 bpm with a slightly widened QRS complex but no acute changes. Of note he has an appointment with the [place] [facility] cardiology department (where his valve was replaced) in 2 days time. At the time of my evaluation he was feeling well, his breathing had improved substantially and he felt that he would like to go home. Allergies Allergy/AdvReac Type Severity Reaction Status Date / Time atorvastatin [From Lipitor] AdvReac Severe CAUSED Verified 05/17/23 01:32 LIVER ISSUES Home Medications Medication Instructions Recorded Confirmed Type acetaminophen 325 mg tablet 650 mg PO Q8H PRN FEVER/PAIN 05/05/21 05/17/23 History (Tylenol) cholecalciferol (vitamin D3) 25 1,000 mcg PO DAILY 05/05/21 05/17/23 History mcg (1,000 unit) capsule (Vitamin D3) rosuvastatin 40 mg tablet 20 mg PO DAILY 05/05/21 05/17/23 History zinc sulfate 50 mg zinc (220 mg) 220 mg (4.4 x 50 mg zinc (220 mg)) 05/09/21 05/17/23 Rx capsule (Orazinc) PO QAM #30 caps amlodipine 5 mg tablet 5 mg PO DAILY #30 tabs 01/25/22 05/17/23 Rx ascorbic acid (vitamin C) 500 mg 500 mg PO DAILY 04/23/22 05/17/23 History tablet (Vitamin C) aspirin 81 mg chewable tablet 81 mg PO DAILY 04/23/22 05/17/23 History citalopram 40 mg tablet (Celexa) 20 mg PO DAILY 04/23/22 05/17/23 History cyanocobalamin (vitamin B-12) 500 2,500 mcg PO 3XWK 04/23/22 05/17/23 History mcg tablet (Vitamin B-12) fluticasone propionate 50 1 spray intranasal DAILY 04/23/22 05/17/23 History mcg/actuation nasal spray,suspension meclizine 25 mg tablet 25 mg PO DAILY PRN Dizziness 04/23/22 05/17/23 History multivitamin with iron-mineral 1 tab PO DAILY 04/23/22 05/17/23 History potassium chloride 20 mEq 10 meq PO DAILY 04/23/22 05/17/23 History tablet,extended release clopidogrel 75 mg tablet 75 mg PO QPM 05/17/23 05/17/23 History lidocaine 5 % topical patch 1 patch topical DAILY 05/17/23 05/17/23 History lisinopril 20 mg tablet 20 mg PO BID 05/17/23 05/17/23 History pantoprazole 20 mg tablet,delayed 20 mg PO DAILY 05/17/23 05/17/23 History release potassium chloride 20 mEq 10 meq PO DAILY 05/17/23 05/17/23 History tablet,extended release Patient History Medical History Fibrosis of lung History of COVID-19 Aortic stenosis Hypertension BPH (benign prostatic hyperplasia) Bradycardia TARSHA (acute kidney injury) Cholecystocolonic fistula Aortic stenosis Near syncope Superficial laceration of back Dizziness GERD (gastroesophageal reflux disease) Muscle spasm Obesity (BMI 30-39.9) Hyperlipidemia Vitamin B12 deficiency Depression Diabetes mellitus Social History Smoking Status: Former smoker Second Hand Exposure: No; Do You Dip or Chew Tobacco: No; Hx Alcohol Use: No Hx Substance Use: No Preferred Language: Georgian Communication Ability: Effective Collections Technician Required: No Beliefs That Will Affect Care: None marital status: / Current Living Situation: Family Current Living Situation Comment: lives in an appartment with daughter How many Children do You have: 4 Feels Safe at Home: Yes Safety Concerns: Feels Safe At This Time Assistive Devices: CPAP, Glasses and Hearing Aid - Bilateral Review of Systems Review of Systems: All systems reviewed & are unremarkable except as noted in HPI & below Physical Exam Physical Exam: Constitutional: Alert, cooperative and in no distress. HEENT: Unremarkable Neck: No jugular venous distention, carotid pulses are normal and equal bilaterally without bruits. Pulmonary: Dry crackles on auscultation bilaterally. Cardiac: Regular rhythm with a grade 3/6 crescendo decrescendo murmur at the base, no gallop or rub. Abdomen: Soft, nontender with normal bowel sounds. Extremities: No edema. Distal pulses intact. Neurologic: No focal findings. Gait is steady. Skin: No rash, ecchymoses or petechiae. Results & Data Vital Signs (Past 12 Hours) Vital Signs Temp Pulse Pulse Resp BP Pulse Ox O2 Del Method 05/18/23 08:03 36.6 C 81 18 137/83 97 CPAP 05/18/23 07:01 56 L 05/18/23 04:01 36.8 C 70 18 129/79 98 Room Air, CPAP 05/17/23 23:24 59 L 05/17/23 23:04 36.9 C 54 L 18 166/88 H 96 Room Air Laboratory Results Cardiac Enzymes 05/17/23 Range/Units 19:25 Troponin I High Sens 12.1 D (0-20) pg/ml CBC 05/18/23 Range/Units 05:52 WBC 4.38 L (4.8-10.8) K/ul RBC 3.63 L (4.70-6.10) M/uL Hgb 11.1 L (14.0-18.0) g/dl Hct 33.1 L (42.0-52.0) % Plt Count 134 (130-400) K/uL Comprehensive Metabolic Panel 05/18/23 Range/Units 05:52 Sodium 140 (136-145) mmol/L Potassium 4.0 (3.5-5.1) mmol/L Chloride 107 (98-107) mmol/L Carbon Dioxide 28 (21-32) mmol/L BUN 24 H (6-23) mg/dl Creatinine 1.52 H (0.6-1.4) mg/dl Glucose 115 H (70-99(Fasting)) mg/dl Calcium 9.3 (8.6-10.3) mg/dl Diagnostic Findings Telemetry: Sinus bradycardia and sinus rhythm, no significant arrhythmia PG Care Time/CCT Total # of Minutes Spent Total Time Spent with Patient: Total time spent is greater than 50% in coordination of care (as documented) at patient's floor/unit and/or counseling patient: Coding Level of Care Code 53151 INT INP/OBS CARE 3/75MIN Diagnoses Dyspnea on minimal exertion R06.09 Aortic valve stenosis, etiology of cardiac valve disease unspecified I35.0 Cardiac valve disease etiology: etiology unspecified (2) Aortic stenosis Cardiac valve disease etiology: etiology unspecified Qualified Code(s): I35.0 - Nonrheumatic aortic (valve) stenosis
--- NOTE | 2023-05-18 13:13 | Discharge Summary ---
Date of Service May 18, 2023 Admission HPI Per Admitting Provider Bradley is an 82-year-old man with a past medical history of hyperlipidemia, GERD, BPH, episodic dizziness, and prediabetes, who presents today with worsening shortness of breath x3 days. Per ED report, dyspnea is most severe with minimal exertion and relieved with rest. ROS + nausea, and dizziness when bending over. He denies chest pain, loss of consciousness, abdominal pain, jaw pain, shoulder pain, or back pain. He recently underwent a TAVR procedure at [facility] last month (). He is a former smoker with an approximately [id number] history. No history of asthma or obstructive lung disease. 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 He has no oxygen requirement at baseline. In the ED, vitals were notable for bradycardia to the mid to high 50s. Oxygen saturation was 98% on room air. Labs were most notable for D-dimer of 7270. WBC count was normal (5.56), as well as rest of CBC. CMP was normal with no electrolyte abnormalities. BNP was also normal (39). CXR was negative for acute abnormality. CTA chest was negative for pulmonary embolus or aortic dissection. On admission, he was started on maintenance fluids. Hospitalist service was then consulted for admission for further evaluation. He also notes shortness of breath has occurred on and off within the last year, but started to worsen after TAVR, became most severe in the last 3 days. He denies shortness of breath, nausea, or dizziness on admission. Admission Exam Per Admitting Provider General: No acute distress HEENT: PERRLA. Normal conjunctiva, anicteric sclera. Oropharynx normal. Respiratory: Normal respiratory effort. Diffuse expiratory wheezes most prominent at mid lung, bases bilaterally. No crackles, rhonchi, or rubs. Cardiovascular: Bradycardic. Regular rhythm. No murmurs, gallops, or rubs. 1+ pedal edema. GI: Large, round protuberant abdomen with high-pitched bowel sounds heard diffusely on auscultation. Nontender x4 quadrants. Neuro: Alert and oriented x3. Principal Diagnosis Dyspnea on exertion, status post TAVR Discharge Exam General: Well-appearing, NAD Cardiovascular: RRR, + systolic murmur Pulmonary: Bibasilar fine crackles Abdomen: Soft, NT/ND, no guarding Extremities: Moving all extremities, no significant pedal edema Integumentary: No suspicious rash or lesion on exposed skin Neurologic: AAOx3, no focal deficits Psychiatric: Appropriate mood/affect Discharge Data Allergies Allergy/AdvReac Type Severity Reaction Status Date / Time atorvastatin [From Lipitor] AdvReac Severe CAUSED Verified 05/17/23 01:32 LIVER ISSUES Consultations 05/17/23 04:34 ED Decision to Admit Stat 05/17/23 19:05 Consult Cardiology Routine 05/17/23 19:06 Consult Pulmonology Routine Ordered Studies 05/16/23 23:56 CT angio chest PE protocol Stat Hospital Course (1) Dyspnea on minimal exertion: (2) Fibrosis of lung: (3) History of COVID-19: (4) Aortic stenosis: (5) S/P TAVR (transcatheter aortic valve replacement): (6) Hypertension: (7) Obstructive sleep apnea: (8) Elevated d-dimer: (9) Elevated troponin: Plan 82 M, PMH hypertension, hyperlipidemia, recent TAVR, who presents to the emergency room with worsening dyspnea on exertion that improved Dyspnea on exertion -No effusion or edema on CXR, chest CT. hemodynamically stable. Normal troponin, BNP. -D-dimer 7270. No PE or dissection on CTA chest. -TAVR at [facility] on 04/23. Echo 01/13/2022: EF = 60-65% with moderate-severe valvular aortic stenosis. -Echo 05/17/2023 largely unchanged: EF = 60-65% with moderate to severe valvular aortic stenosis, mild mitral regurgitation, mild concentric LVH -Pulmonary consulted: Patient with post COVID-19 fibrotic changes, consider outpatient PFTs and HRCT in 6 months - unlikely acute symptoms secondary to these findings -Cardiology consulted: Unclear etiology of dyspnea that improved spontaneously, may possibly be an issue with his replaced valverecommend keeping upcoming appointment in 2 days with his cardiology team for reevaluation -Ambulated well without hypoxia Elevated D-dimer -No PE or dissection on CTA chest. Pedal edema is mild and bilateral. -No evidence of infection/sepsis, malignancy. Recent surgery <1-month. Hypertension -Continue home amlodipine, lisinopril Pulmonary Fibrosis -Due to prior COVID-19 infection -Consider outpatient PFTs and HRCT in 6 months S/p recent TAVR -Procedure done at [facility] in April -Keep f/u appt in 2 days for re-evaluation Total Time Total Time Spent Total Time Spent (In Minutes): 35 Total Time Includes: Examination of the Patient, Discharge Planning, Medication Reconciliation and Communication With Other Providers Discharge Plan Discharge Items Patient Disposition: Home - Self-Care Reason For Visit: DYSPNEA ON EXERTION Discharge Diagnosis: Dyspnea on exertion Activity: Resume your previous activity Non-emergency contact: Primary Care Provider and Supervisor Agricultural [employer] Call non-emergency contact if: your symptoms worsen Follow-up/Referrals: Oly Ellsworth PA-C [Primary Care Provider] - (Please call your primary care provider to set up a hospital follow-up appt within 7-10 days from your discharge date) Diet: Heart Healthy Addtl Attending Provider Instructions: You were admitted to the hospital with shortness of breath and while here evaluated by both pulmonology and cardiology. You do have some fibrosis of your lungs in relation to your prior COVID infection, but it is unlikely that this is the cause of the symptoms that brought you into the hospital. Should you be interested you can have outpatient follow-up with pulmonology to further monitor this with repeat chest CT scan in about 6-months and pulmonary function tests. You can discuss this option with your PCP. It is unclear if this shortness of breath was in any relation to your recent aortic valve replacement. Keep your upcoming appointment with the cardiology department where your valve was i mplanted and discuss your recent symptoms with them as well to determine if any additional testing is indicated. If you have any return of worsening shortness of breath or new chest pain or worsening lightheadedness/dizziness, do not hesitate to return to the ER for evaluation. Pending Studies at Discharge: No Stand-Alone Forms: My Recombine, Smoking Cessation Medications and DC Order Prescriptions: Continued acetaminophen [Tylenol] 325 mg Tablet 650 mg PO Q8H PRN (Reason: FEVER/PAIN) cholecalciferol (vitamin D3) [Vitamin D3] 25 mcg (1,000 unit) Capsule 1,000 mcg PO DAILY rosuvastatin 40 mg Tablet 20 mg PO DAILY Rx Instructions: 1/2 tablet dose zinc sulfate [Orazinc] 50 mg zinc (220 mg) Capsule 220 mg PO QAM Qty: 30 0RF amlodipine 5 mg tablet 5 mg PO DAILY Qty: 30 0RF citalopram [Celexa] 40 mg Tablet 20 mg PO DAILY cyanocobalamin (vitamin B-12) [Vitamin B-12] 500 mcg Tablet 2,500 mcg PO 3XWK Rx Instructions: TAKE 5 TABS MON, WED, & FRI. ascorbic acid (vitamin C) [Vitamin C] 500 mg Tablet 500 mg PO DAILY meclizine 25 mg Tablet 25 mg PO DAILY PRN (Reason: Dizziness) aspirin 81 mg Tablet,Chewable 81 mg PO DAILY fluticasone propionate 50 mcg/actuation [place],Suspension 1 spray INTRANASAL DAILY Rx Instructions: administer into each nostril multivitamin with iron-mineral Tablet 1 tab PO DAILY potassium chloride 20 mEq Tablet Extended Release 10 meq PO DAILY Rx Instructions: 1/2 tablet dose clopidogrel 75 mg Tablet 75 mg PO QPM lisinopril 20 mg Tablet 20 mg PO BID pantoprazole 20 mg Tablet,Delayed Release (Dr/Ec) 20 mg PO DAILY lidocaine 5 % Adhesive Patch,Medicated 1 patch TOPICAL DAILY Rx Instructions: apply to lower back - 12 hours on -12 hours off potassium chloride 20 mEq Tablet Extended Release 10 meq PO DAILY Rx Instructions: 1/2 tablet dose Discharge Orders: Discharge Order (Routine); Ordered 05/18/23 Ordered By: Joann Bueno Admission Data Admit Date/Time: 05/17/23 04:53 Attending Provider: Joann Bueno Admit Provider: Dylan Magaña Primary Care Provider: Oly Ellsworth Other Providers: Anshul Fung; Ricki Aguilar; Chon Osborne Other Interventions: Discharge Summary Assessment (RN) Last Done: 05/18/23 14:03 Coding Level of Care Code 13535 INP/OBS DISCH >30 MIN Diagnoses Dyspnea on minimal exertion R06.09 Fibrosis of lung J84.10 History of COVID-19 Z86.16 Aortic valve stenosis, etiology of cardiac valve disease unspecified I35.0 Cardiac valve disease etiology: etiology unspecified S/P TAVR (transcatheter aortic valve replacement) Z95.2 Hypertension I10 Obstructive sleep apnea G47.33 Elevated d-dimer R79.89 Elevated troponin R79.89
--- NOTE | 2023-05-18 19:14 | Billing Data ---
Date of Service May 18, 2023 Coding Level of Care Code 36517 INT INP/OBS CARE
== END 2023-05-18 15:34 | disposition home or self-care (01) | DRG 204 ==
LOC: ED 21:48 → SUATTDRO 05-17 04:53 → INTOOBSV 05-17 04:53 → 2N 05-17 04:53